=== PATIENT | male | born 1945 | race Caucasian/White ===

== ENCOUNTER 2018-09-13 14:27 | Inpatient (IN) | payer MEDICARE, OTHER ==
[~2018-09-13] VITALS: Ht 193 cm; Wt 109.1 kg
[2018-09-13 15:08] LABS: BASO # 0.1 x10^3/uL (0.0-0.2); BASO % 1 % (0-3); EOS # 0.2 x10^3/uL (0.0-0.7); EOS % 2 % (0-3); HEMATOCRIT 38.7 % (39.0-53.0); HEMOGLOBIN 12.3 g/dL (13.0-17.5); LYMPH # 3.4 x10^3/uL (1.0-4.8); LYMPH % 27 % (24-48); MEAN CORPUSCULAR HEMOGLOBIN 25 pg (25-35); MEAN CORPUSCULAR HGB CONC 32 g/dL (31-37); MEAN CORPUSCULAR VOLUME 78 fL (79-100); MONO # 0.9 x10^3/uL (0.0-1.1); MONO % 8 % (0-9); NEUT % 63 % (31-73); PLATELET COUNT 323 x10^3/uL (140-400); RED BLOOD COUNT 4.95 x10^6/uL (4.30-5.70); RED CELL DISTRIBUTION WIDTH 17.2 % (11.5-14.5); WHITE BLOOD COUNT 12.7 x10^3/uL (4.0-11.0)
[2018-09-13 15:24] LABS: % BANDS 6 % (0-9); % BASOS 2 % (0-3); % EOS 5 % (0-5); % LYMPHS 20 % (24-48); % MONOS 4 % (0-10); % SEGS 63 % (35-66)
[2018-09-13 15:27] LABS: HYPOCHROMIA SLIGHT; PLT ESTIMATE ADEQUATE (ADEQUATE)
[2018-09-13 15:33] LABS: ALBUMIN 2.9 g/dL (3.4-5.0); ALBUMIN/GLOBULIN RATIO 0.6 (1.0-1.7); CALCIUM 9.4 mg/dL (8.5-10.1); CREATININE 1.2 mg/dL (0.7-1.3); GFR 59.3; MAGNESIUM 1.7 mg/dL (1.8-2.4); POTASSIUM 4.4 mmol/L (3.5-5.1); TOTAL BILIRUBIN 0.1 mg/dL (0.2-1.0); TOTAL PROTEIN 7.5 g/dL (6.4-8.2)
[2018-09-13 16:21] LABS: BILIRUBIN,URINE NEG (NEG); CLARITY,URINE HAZY; COLOR,URINE YELLOW; GLUCOSE,URINE NEG (NEG); NITRITE,URINE NEG (NEG); UROBILINOGEN,URINE 0.2 mg/dL (0.2 mg/dL)
[2018-09-13 16:22] LABS: BACTERIA,URINE FEW /HPF (0-FEW); RBC,URINE 0 /HPF (0-2); SQUAMOUS EPITHELIAL CELL,UR FEW /LPF; WBC,URINE OCC /HPF (0-4)
--- NOTE | 2018-09-13 16:41 | EKG ---
[address] [address] Test Date: 2018-09-13 Test Time: 14:45:22 Pat Name: ZEENAT SOSA Department: Room: Gender: M Stock Speculator: JANET : 1945 Requested By: DYLAN MILTON Order Number: [id number] Reading MD: Sonido Sanabria MD Measurements Intervals [place] Rate: 84 P: 42 DC: 170 QRS: 11 QRSD: 94 T: 12 QT: 358 QTc: 426 Interpretive Statements SINUS RHYTHM CONSIDER INFERIOR INFARCT Electronically Signed On 09-17-2018 14:53:26 CDT by Sonido Sanabria MD
--- NOTE | 2018-09-13 16:50 | PHYS DOC ---
Past History Past Medical History: Anxiety, COPD, Dementia, Depression, Diabetes, GERD, High Cholesterol, Hypertension, Hypothyroid, Pneumonia, Other Past Surgical History: Other Alcohol Use: None Drug Use: None Adult General Chief Complaint Chief Complaint: PSYCH EVALUATION HPI HPI 73-year-old male presents from care facility for medical clearance for psychiatric admission. Patient was reported to have bilateral behaviors and yelling at other people. The patient denies any medical complaints to me. He does not have any pain. He has had several times a day doesn't think he needs to be here. He has occasionally gotten angry and yelled out in general. Review of Systems Review of Systems Constitutional: Denies fever or chills [] Eyes: Denies change in visual acuity, redness, or eye pain [] HENT: Denies nasal congestion or sore throat [] Respiratory: Denies cough or shortness of breath [] Cardiovascular: No additional information not addressed in HPI [] GI: Denies abdominal pain, nausea, vomiting, bloody stools or diarrhea [] : Denies dysuria or hematuria [] Musculoskeletal: Denies back pain or joint pain [] Integument: Denies rash or skin lesions [] Neurologic: Denies headache, focal weakness or sensory changes [] Endocrine: Denies polyuria or polydipsia [] All other systems were reviewed and found to be within normal limits, except as documented in this note. Allergies Allergies Allergies Coded Allergies Type Severity Reaction Last Updated Verified tomato Allergy Unknown 09/13/18 Yes Physical Exam Physical Exam Constitutional: Well developed, well nourished, no acute distress, non-toxic appearance. [] HENT: Normocephalic, atraumatic, bilateral external ears normal, oropharynx moist, no oral exudates, nose normal. [] Eyes: PERRLA, EOMI, conjunctiva normal, no discharge. [] Neck: Normal range of motion, no tenderness, supple, no stridor. [] Cardiovascular:Heart rate regular rhythm, no murmur [] Lungs & Thorax: Bilateral breath sounds clear to auscultation [] Abdomen: Bowel sounds normal, soft, no tenderness, no masses, no pulsatile masses. [] Skin: Warm, dry, no erythema, no rash. [] Back: No tenderness, no CVA tenderness. [] Extremities: No tenderness, no cyanosis, no clubbing, ROM intact, no edema. [] Neurologic: Alert and oriented X 3, normal motor function, normal sensory function, no focal deficits noted. [] Psychologic: Affect normal, judgement impaired, mood normal. [] Current Patient Data Vital Signs Vital Signs Date Time Temp Pulse Resp B/P (MAP) Pulse Ox O2 Delivery O2 Flow Rate FiO2 09/13/18 14:40 98.1 89 20 96 Room Air Lab Results Laboratory Tests Test 09/13/18 14:55 09/13/18 15:40 White Blood Count 12.7 x10^3/uL (4.0-11.0) H Red Blood Count 4.95 x10^6/uL (4.30-5.70) Hemoglobin 12.3 g/dL (13.0-17.5) L Hematocrit 38.7 % (39.0-53.0) L Mean Corpuscular Volume 78 fL (79-100) L Mean Corpuscular Hemoglobin 25 pg (25-35) Mean Corpuscular Hemoglobin Concent 32 g/dL (31-37) Red Cell Distribution Width 17.2 % (11.5-14.5) H Platelet Count 323 x10^3/uL (140-400) Neutrophils (%) (Auto) 63 % (31-73) Lymphocytes (%) (Auto) 27 % (24-48) Monocytes (%) (Auto) 8 % (0-9) Eosinophils (%) (Auto) 2 % (0-3) Basophils (%) (Auto) 1 % (0-3) Neutrophils # (Auto) 8.0 x10^3uL (1.8-7.7) H Lymphocytes # (Auto) 3.4 x10^3/uL (1.0-4.8) Monocytes # (Auto) 0.9 x10^3/uL (0.0-1.1) Eosinophils # (Auto) 0.2 x10^3/uL (0.0-0.7) Basophils # (Auto) 0.1 x10^3/uL (0.0-0.2) Segmented Neutrophils % 63 % (35-66) Band Neutrophils % 6 % (0-9) Lymphocytes % 20 % (24-48) L Monocytes % 4 % (0-10) Eosinophils % 5 % (0-5) Basophils % 2 % (0-3) Platelet Estimate Adequate (ADEQUATE) Hypochromasia Slight Sodium Level 138 mmol/L (136-145) Potassium Level 4.4 mmol/L (3.5-5.1) Chloride Level 102 mmol/L (98-107) Carbon Dioxide Level 29 mmol/L (21-32) Anion Gap 7 (6-14) Blood Urea Nitrogen 24 mg/dL (8-26) Creatinine 1.2 mg/dL (0.7-1.3) Estimated GFR (Cockcroft-Gault) 59.3 BUN/Creatinine Ratio 20 (6-20) Glucose Level 105 mg/dL (70-99) H Calcium Level 9.4 mg/dL (8.5-10.1) Magnesium Level 1.7 mg/dL (1.8-2.4) L Total Bilirubin 0.1 mg/dL (0.2-1.0) L Aspartate Amino Transferase (AST) 13 U/L (15-37) L Alanine Aminotransferase (ALT) 14 U/L (16-63) L Alkaline Phosphatase 84 U/L (46-116) Total Protein 7.5 g/dL (6.4-8.2) Albumin 2.9 g/dL (3.4-5.0) L Albumin/Globulin Ratio 0.6 (1.0-1.7) L Urine Collection Type Unknown Urine Color Yellow Urine Clarity Hazy Urine pH 7.0 Urine Specific [place] 1.020 Urine Protein Neg (NEG-TRACE) Urine Glucose (UA) Neg mg/dL (NEG) Urine Ketones (Stick) Neg mg/dL (NEG) Urine Blood Neg (NEG) Urine Nitrite Neg (NEG) Urine Bilirubin Neg (NEG) Urine Urobilinogen Dipstick 0.2 mg/dL (0.2 mg/dL) Urine Leukocyte Esterase Neg (NEG) Urine RBC 0 /HPF (0-2) Urine WBC Occ /HPF (0-4) Urine Squamous Epithelial Cells Few /LPF Urine Bacteria Few /HPF (0-FEW) EKG EKG [] Radiology/Procedures Radiology/Procedures [] Course & Med Decision Making Course & Med Decision Making Pertinent Labs and Imaging studies reviewed. (See chart for details) The patient's labs are significant for a slightly elevated white count. I do not see signs of infection. Patient's urinalysis is unremarkable. He is medically stable for psychiatric admission. [] Dragon Disclaimer Dragon Disclaimer This electronic medical record was generated, in whole or in part, using a voice recognition dictation system. Departure Departure: Impression: Primary Impression: Medical clearance for psychiatric admission Disposition: ADMITTED INPATIENT Condition: STABLE Referrals: MARCIA BARTLETT (PCP) DYLAN MILTON DO Sep 13, 2018 16:50
[2018-09-13] MEDS ORDERED: METHYL SALICYLATE/MENTHOL TOPICAL OINTMENT 29GM TUBE. TP PRN (18:45)
[2018-09-13] MEDS ORDERED: ACETAMINOPHEN 325 MG TABLET PO PRN (18:45)
[2018-09-13] MEDS ORDERED: MAGNESIUM HYDROXIDE 2,400 MG/30 ML ORAL.SUSP. PO PRN (18:45)
[2018-09-13 19:08] LABS: VAL ACID 51 mcg/mL (50-100)
[2018-09-13] MEDS ORDERED: METF500T16 PO (21:05)
[2018-09-13] MEDS ORDERED: IPRA3AMP29 NEB (21:05)
[2018-09-13] MEDS ORDERED: LEVO50TA5 PO (21:05)
[2018-09-13] MEDS ORDERED: DIVA125C2 PO ×2 (21:05)
[2018-09-13] MEDS ORDERED: ASPI-630 PO (21:05)
[2018-09-13] MEDS ORDERED: DONE10TA7 PO (21:05)
[2018-09-13] MEDS ORDERED: METO-239 PO (21:05)
[2018-09-13] MEDS ORDERED: DEXT1CAP PO (21:05)
[2018-09-13] MEDS ORDERED: DOCU100C28 PO (21:05)
[2018-09-13] MEDS ORDERED: ACET325T9 PO (21:05)
[2018-09-13] MEDS ORDERED: OLAN20TA7 PO (21:05)
[2018-09-13] MEDS ORDERED: CHOL10003 PO (21:05)
[2018-09-13] MEDS ORDERED: LORA0.5T PO (21:05)
[2018-09-13] MEDS ORDERED: FAMO20TA5 PO (21:05)
[2018-09-13] MEDS ORDERED: SIMV10TA3 PO (21:05)
[2018-09-13] MEDS ORDERED: MENT118G TP (21:05)
[2018-09-13] MEDS ORDERED: IPRATRPIUM/ALBUTEROL 0.5/2.5MG 3 ML NEBU. NEB PRN (21:15)
[2018-09-13] MEDS ORDERED: NON FORMULARY ITEM (Menthol (Biofreeze) 118 ML) TP PRN (21:15)
[2018-09-13] MEDS ORDERED: QUET200T4 PO (21:39)
[2018-09-13] MEDS ORDERED: QUET300T5 PO ×2 (21:39)
[2018-09-13] MEDS: SIMVASTATIN 10 MG TABLET PO SCH (21:59)
[2018-09-13] MEDS: FAMOTIDINE 20 MG TABLET PO SCH (21:59)
[2018-09-13] MEDS: DONEPEZIL HCL 10 MG TABLET PO SCH (21:59)
[2018-09-13] MEDS: DIVALPROEX 125 MG CAP.SPRINK PO SCH (21:59)
[2018-09-13] MEDS: DEXTROMETHORPHAN/QUINIDINE 20/10MG CAPSULE. PO SCH ×2 (22:00→23:09)
[2018-09-13] MEDS: DOCUSATE SODIUM 100 MG CAPSULE PO SCH (22:00)
--- NOTE | 2018-09-13 22:52 | PDOC ---
Exam Note: Og Note: Please also refer to the separate dictated note~for this date of service dictated separately.~Patient seen individually. Discussed the patient with Nursing staff reviewed the chart.~Reviewed interim history and current functioning. Reviewed vital signs,~Labs/ Radiology~and current medications noted below. Continue current treatment with the changes noted in the dictated addendum note Assessment: Vital Signs: Vital Signs Date Time Temp Pulse Resp B/P (MAP) Pulse Ox O2 Delivery O2 Flow Rate FiO2 09/13/18 14:40 98.1 89 20 96 Room Air Labs: Laboratory Tests Test 09/13/18 14:55 09/13/18 15:40 White Blood Count 12.7 x10^3/uL (4.0-11.0) H Red Blood Count 4.95 x10^6/uL (4.30-5.70) Hemoglobin 12.3 g/dL (13.0-17.5) L Hematocrit 38.7 % (39.0-53.0) L Mean Corpuscular Volume 78 fL (79-100) L Mean Corpuscular Hemoglobin 25 pg (25-35) Mean Corpuscular Hemoglobin Concent 32 g/dL (31-37) Red Cell Distribution Width 17.2 % (11.5-14.5) H Platelet Count 323 x10^3/uL (140-400) Neutrophils (%) (Auto) 63 % (31-73) Lymphocytes (%) (Auto) 27 % (24-48) Monocytes (%) (Auto) 8 % (0-9) Eosinophils (%) (Auto) 2 % (0-3) Basophils (%) (Auto) 1 % (0-3) Neutrophils # (Auto) 8.0 x10^3uL (1.8-7.7) H Lymphocytes # (Auto) 3.4 x10^3/uL (1.0-4.8) Monocytes # (Auto) 0.9 x10^3/uL (0.0-1.1) Eosinophils # (Auto) 0.2 x10^3/uL (0.0-0.7) Basophils # (Auto) 0.1 x10^3/uL (0.0-0.2) Segmented Neutrophils % 63 % (35-66) Band Neutrophils % 6 % (0-9) Lymphocytes % 20 % (24-48) L Monocytes % 4 % (0-10) Eosinophils % 5 % (0-5) Basophils % 2 % (0-3) Platelet Estimate Adequate (ADEQUATE) Hypochromasia Slight Sodium Level 138 mmol/L (136-145) Potassium Level 4.4 mmol/L (3.5-5.1) Chloride Level 102 mmol/L (98-107) Carbon Dioxide Level 29 mmol/L (21-32) Anion Gap 7 (6-14) Blood Urea Nitrogen 24 mg/dL (8-26) Creatinine 1.2 mg/dL (0.7-1.3) Estimated GFR (Cockcroft-Gault) 59.3 BUN/Creatinine Ratio 20 (6-20) Glucose Level 105 mg/dL (70-99) H Calcium Level 9.4 mg/dL (8.5-10.1) Magnesium Level 1.7 mg/dL (1.8-2.4) L Total Bilirubin 0.1 mg/dL (0.2-1.0) L Aspartate Amino Transferase (AST) 13 U/L (15-37) L Alanine Aminotransferase (ALT) 14 U/L (16-63) L Alkaline Phosphatase 84 U/L (46-116) Total Protein 7.5 g/dL (6.4-8.2) Albumin 2.9 g/dL (3.4-5.0) L Albumin/Globulin Ratio 0.6 (1.0-1.7) L Valproic Acid Level 51 mcg/mL (50-100) Valproic Acid Last Dose Date 09-12-18 Valproic Acid Last Dose Time 2100 Urine Collection Type Unknown Urine Color Yellow Urine Clarity Hazy Urine pH 7.0 Urine Specific [place] 1.020 Urine Protein Neg (NEG-TRACE) Urine Glucose (UA) Neg mg/dL (NEG) Urine Ketones (Stick) Neg mg/dL (NEG) Urine Blood Neg (NEG) Urine Nitrite Neg (NEG) Urine Bilirubin Neg (NEG) Urine Urobilinogen Dipstick 0.2 mg/dL (0.2 mg/dL) Urine Leukocyte Esterase Neg (NEG) Urine RBC 0 /HPF (0-2) Urine WBC Occ /HPF (0-4) Urine Squamous Epithelial Cells Few /LPF Urine Bacteria Few /HPF (0-FEW) Current Medications: Meds: Current Medications Acetaminophen (Tylenol) 650 mg PRN Q6HRS PRN PO PAIN / TEMP; Start 09/13/18 at 18:45 Multi-Ingredient Ointment (Analgesic [place]) 1 johnny PRN QID PRN TP MUSCLE PAIN; Start 09/13/18 at 18:45 Al Hydroxide/Mg Hydroxide (Mylanta Plus Xs) 15 ml PRN AFTMEALHC PRN PO DYSPEPS IA; Start 09/13/18 at 18:45 Magnesium Hydroxide (Milk Of Magnesia) 2,400 mg PRN QHS PRN PO CONSTIPATION; Start 09/13/18 at 18:45 Acetaminophen (Tylenol) 325 mg TID PO ; Start 09/14/18 at 09:00 Vitamin D (Vitamin D3) 4,000 unit DAILY PO ; Start 09/14/18 at 09:00 Dextromethorphan/ Quinidine (Nuedexta 20-10 Mg Capsule) 1 cap BID PO ; Start 09/13/18 at 22:00 Albuterol/ Ipratropium (Duoneb) 3 ml PRN Q6HRS PRN NEB COUGH; Start 09/13/18 at 21:15 Metoprolol Succinate (Toprol Xl) 25 mg DAILY PO ; Start 09/14/18 at 09:00 Simvastatin (Zocor) 10 mg HS PO Last administered on 09/13/18at 21:59; Start 09/13/18 at 22:00 Aspirin (Children'S Aspirin) 81 mg DAILY PO ; Start 09/14/18 at 08:00 Divalproex Sodium (Depakote Sprinkles) 1,000 mg HS PO Last administered on 09/13/18at 21:59; Start 09/13/18 at 22:00 Divalproex Sodium (Depakote Sprinkles) 750 mg DAILY PO ; Start 09/14/18 at 09:00 Docusate Sodium (Colace) 100 mg BID PO Last administered on 09/13/18at 22:00; Start 09/13/18 at 22:00 Donepezil HCl (Aricept) 10 mg HS PO Last administered on 09/13/18at 21:59; Start 09/13/18 at 22:00 Famotidine (Pepcid) 20 mg HS PO Last administered on 09/13/18at 21:59; Start 09/13/18 at 22:00 Levothyroxine Sodium (Synthroid) 50 mcg DAILY06 PO ; Start 09/14/18 at 06:00 Lorazepam (Ativan) 0.5 mg PRN TID PRN PO ANXIETY / AGITATION; Start 09/13/18 at 21:30 Non-Formulary Medication (Menthol (Biofreeze)) 118 ml PRN Q24HRS PRN TP PAIN; Start 09/13/18 at 21:15; Status UNV Metformin HCl (Glucophage) 500 mg BIDWMEALS PO ; Start 09/14/18 at 08:00 Olanzapine (ZyPREXA) 20 mg DAILY PO ; Start 09/14/18 at 09:00 Quetiapine Fumarate (SEROquel) 200 mg DAILY PO ; Start 09/14/18 at 09:00 Quetiapine Fumarate (SEROquel) 300 mg DAILY@1500 PO ; Start 09/14/18 at 15:00 Quetiapine Fumarate (SEROquel) 300 mg HS PO ; Start 09/13/18 at 22:30 Active Scripts Active Reported Seroquel (Quetiapine Fumarate) 300 Mg Tablet 300 Mg PO HS Seroquel (Quetiapine Fumarate) 300 Mg Tablet 300 Mg PO DAILY@1500 Seroquel (Quetiapine Fumarate) 200 Mg Tablet 200 Mg PO DAILY Vitamin D3 (Cholecalciferol (Vitamin D3)) 1,000 Unit Tablet 4,000 Unit PO DAILY Simvastatin 10 Mg Tablet 10 Mg PO HS Olanzapine 20 Mg Tablet 20 Mg PO DAILY Nuedexta 20-10 Mg Capsule (Dextromethorphan Hbr/Quinidine) 1 Each Capsule 1 Each PO BID Tylenol (Acetaminophen) 325 Mg Tablet 325 Mg PO TID Metoprolol Succinate ( Xl ) (Metoprolol Succinate) 25 Mg Tab.er.24h 25 Mg PO DAILY Metformin Hcl 500 Mg Tablet 500 Mg PO BIDWMEALS Lorazepam 0.5 Mg Tablet 0.5 Mg PO PRN TID PRN Levothyroxine Sodium 50 Mcg Tablet 50 Mcg PO DAILYAC Duoneb 0.5-3(2.5) Mg/3 Ml (Albuterol/Ipratropium) 3 Ml Ampul.neb 3 Ml NEB PRN Q6HRS PRN Famotidine 20 Mg Tablet 20 Mg PO HS Donepezil Hcl 10 Mg Tablet 10 Mg PO HS Docusate Sodium 100 Mg Capsule 100 Mg PO BID Depakote Sprinkle (Divalproex Sodium) 125 Mg Cap.sprink 750 Mg PO DAILY Depakote Sprinkle (Divalproex Sodium) 125 Mg Cap.sprink 1,000 Mg PO HS Biofreeze (Menthol) 118 Ml Gel..ml. 118 Ml TP PRN Q24HRS PRN Aspirin 81 Mg Tab.chew 81 Mg PO DAILY I have reviewed the current psychotropics carefully including drug interactions. Risk benefit ratio favors no change other than as noted in my dictated progress note. Diagnosis: Problems: (1) Anxiety disorder (2) Dementia in Alzheimer's disease with delusions (3) Dementia in Alzheimer's disease with depression (4) Dementia, vascular, with delusions (5) Dementia, vascular, with depression (6) Impulse control disorder KAMILA GOMEZ MD Sep 13, 2018 22:52
[2018-09-13] MEDS: QUEtiapine 100 MG TABLET. PO SCH (23:08)
[2018-09-14 05:22] VITALS: BP 113/72
[2018-09-14] MEDS: LEVOTHYROXINE 50 MCG TABLET PO SCH (05:39)
[2018-09-14] MEDS: ACETAMINOPHEN 325 MG TABLET PO SCH ×3 (08:35→19:17)
[2018-09-14] MEDS: METOPROLOL SUCC 24HR ER 25 MG TAB.ER.24H. PO SCH (08:35)
[2018-09-14] MEDS: CHOLECALCIFEROL (VITAMIN D3) 1,000 UNIT TABLET PO SCH (08:35)
[2018-09-14] MEDS: OLANZapine 10 MG TABLET PO SCH (08:35)
[2018-09-14] MEDS: DOCUSATE SODIUM 100 MG CAPSULE PO SCH ×2 (08:35→19:17)
[2018-09-14] MEDS: metFORMIN 500 MG TABLET PO SCH ×2 (08:36→17:11)
[2018-09-14] MEDS: DIVALPROEX 125 MG CAP.SPRINK PO SCH ×2 (08:36→19:17)
[2018-09-14] MEDS: ASPIRIN 81 MG TAB.CHEW PO SCH ×2 (08:36→08:37)
[2018-09-14] MEDS: QUEtiapine 100 MG TABLET. PO SCH ×3 (08:36→19:18)
[2018-09-14] MEDS: DEXTROMETHORPHAN/QUINIDINE 20/10MG CAPSULE. PO SCH ×2 (08:36→19:18)
--- NOTE | 2018-09-14 09:59 | RAD ---
PQRS Compliance Statement: One or more of the following individualized dose reduction techniques were utilized for this examination: 1. Automated exposure control 2. Adjustment of the mA and/or kV according to patient size 3. Use of iterative reconstruction technique CT HEAD WITHOUT CONTRAST History: Change in mental status. Patient noncompliant Comparison: None. Technique: Axial images are obtained of the head from the skull base through the vertex without IV contrast. Findings: Exam is moderately limited due to motion artifact. Subtle finding could be obscured. No mass-effect, midline shift, extra-axial fluid collection, hemorrhage, or obvious acute infarction is identified. Basilar cisterns are patent. The ventricles and sulci are prominent, consistent with age-related cerebral atrophy. There is supratentorial white matter hypoattenuation. This is a nonspecific finding but is commonly due to chronic small vessel ischemic disease. Bone windows demonstrate no acute calvarial abnormality. The visualized paranasal sinuses are clear. Mastoid air cells are well aerated. IMPRESSION: 1. Study is marginally diagnostic due to motion artifact. 2. No obvious acute intracranial abnormality. 3. Age-related cerebral atrophy and supratentorial white matter changes probably due to chronic small vessel ischemic disease. Electronically signed by: Waylon Flanagan MD (09/14/2018 9:56 AM) [id number]
--- NOTE | 2018-09-14 13:04 | HP ---
ADMIT DATE: 09/13/2018 PSYCHIATRIC ADMISSION HISTORY/EVALUATION This late entry, date of service 09/13/2018, covers elements not covered in my initial note. I met with the patient in the evening of 09/13/2018. Discussed with nursing staff, reviewed the chart, previously discussed with Beth Braden, talent development coordinator after we received a referral from [facility] by his primary care physician, Dr. Polanco. On account of worsening intermittent explosive behaviors, yelling, being disruptive at the facility, belligerent, name calling, verbally abusive, agitated, throwing pillows at others and having failed outpatient psychiatric interventions. He is being admitted by Aaron Cantor, public practice administrator, who is his guardian. CHIEF COMPLAINT: "I came here today. I don't do those things." HISTORY OF PRESENT ILLNESS: The patient has prior diagnosis of schizoaffective disorder, bipolar type with worsening cognition and major neurocognitive disorder. Over the past few weeks the patient has been increasingly agitated as noted above, disruptive, unmanageable at the facility. He has failed a prior inpatient psychiatric hospitalization at [facility] in [facility] from 07/09/2018-07/21/2018. We will request those records as well. He has had sleep and appetite changes and worsening mood swings. Adjustments in his Depakote, lorazepam, Nuedexta, olanzapine, Seroquel and behavioral interventions with redirection have all failed resulting in this referral. PAST PSYCHIATRIC HISTORY: Positive for mood swings and progressive memory deficits. PAST MEDICAL HISTORY: Positive for status post pneumonia, chronic constipation, traumatic subdural hemorrhage, pruritus, tachycardia, type 2 diabetes mellitus, hypothyroidism, vitamin D deficiency, hyperlipidemia, history of autistic spectrum disorder, hypertension, COPD, GERD, peptic ulcer disease. Ambulates with a [place] with 2-person assist. He also uses the wheelchair shoe on one foot, nonskid sock on the other. DIET: Regular. MEDICATIONS: Takes meds crushed. ALLERGIES: TOMATOES. CODE STATUS: Full code. FAMILY HISTORY: Noncontributory. SOCIAL HISTORY: No history of alcohol, drug abuse, physical, sexual or elder abuse. He is not known to be a perpetrator. CURRENT PSYCHOTROPICS: Depakote Sprinkles 750 mg a.m. and 1000 mg at bedtime, Aricept 10 mg at bedtime, Ativan 0.5 mg at bedtime and 0.5 mg at 1700 plus 0.5 mg daily, Nuedexta 20/10 mg b.i.d., Zyprexa 20 mg daily, Seroquel 200 mg daily, 300 mg at bedtime and 100 mg at 1700. REACTION TO HOSPITALIZATION: The patient accepting of it. REVIEW OF SYSTEMS: Ambulation impaired, in wheelchair. No CV, , pulmonary, eye, ENT system symptoms on review. MENTAL STATUS EXAM: The patient was seen individually evening of 09/13/2018. He was just finishing his supper and I met with him at some length. He is oriented to himself and did know he was admitted on 09/13/2018, was unsure where he came from. [place] the year was 2016, unable to tell me who the President is. Speech has some latency, coherent. Abstraction fair, computation impaired, language function intact, attention span short. Mood and affect remain somewhat anxious, labile, remains somewhat paranoid. LABORATORY DATA: Reviewed. IMPRESSION: Schizoaffective disorder, bipolar type, mixed with psychotic features; major neurocognitive disorder, possibly Alzheimer, vascular with delusion, depression, behavioral disturbance; anxiety disorder, unspecified; impulse control disorder, unspecified. Rest as above. PLAN: Admit to Geropsychiatry Unit at [facility]. I will see the patient daily individually from a psychiatric standpoint, medical followup with Dr. Brock. We will continue his current psychotropics. Check a valproic acid level then adjust to reach therapeutic level. We will try and simplify his antipsychotics since he is on a combination of two atypical antipsychotics, Zyprexa and Seroquel. We will make further decisions post baseline assessment. MAN Samina GOMEZ MD DR: KSENIA/rocky JOB#: [id number] / [id number]
[2018-09-14 13:31] LABS: THYROID STIM HORMONE (TSH) 5.033 uIU/mL (0.358-3.740)
[2018-09-14 16:30] VITALS: BP 170/68
[2018-09-14] MEDS: SIMVASTATIN 10 MG TABLET PO SCH (19:17)
[2018-09-14] MEDS: FAMOTIDINE 20 MG TABLET PO SCH (19:17)
[2018-09-14] MEDS: DONEPEZIL HCL 10 MG TABLET PO SCH (19:17)
--- NOTE | 2018-09-14 22:50 | PDOC ---
Exam Note: Og Note: Please also refer to the separate dictated note~for this date of service dictated separately.~Patient seen individually. Discussed the patient with Nursing staff reviewed the chart.~Reviewed interim history and current functioning. Reviewed vital signs,~Labs/ Radiology~and current medications noted below. Continue current treatment with the changes noted in the dictated addendum note Assessment: Vital Signs: Vital Signs Date Time Temp Pulse Resp B/P (MAP) Pulse Ox O2 Delivery O2 Flow Rate FiO2 09/14/18 16:30 97.0 78 16 170/68 (102) 97 09/13/18 14:40 Room Air I&O Intake and Output 09/14/18 07:00 Intake Total 120 ml Balance 120 ml Intake Oral 120 ml Labs: Laboratory Tests Test 09/14/18 07:24 09/14/18 07:36 09/14/18 11:44 09/14/18 16:36 Magnesium Level 1.8 mg/dL (1.8-2.4) Iron Level 56 ug/dL (65-175) L Total Iron Binding Capacity 368 ug/dL (250-450) Iron Saturation 15 % (15-34) Triglycerides Level 248 mg/dL (0-150) H Cholesterol Level 150 mg/dL (0-200) LDL Cholesterol, Calculated 59 mg/dL (0-100) VLDL Cholesterol, Calculated 49 mg/dL (0-40) H Non-HDL Cholesterol Calculated 108 mg/dL (0-129) HDL Cholesterol 42 mg/dL (40-60) Cholesterol/HDL Ratio 3.0 25-Hydroxy Vitamin D Total 41.5 ng/mL (30-100) Thyroid Stimulating Hormone (TSH) 5.033 uIU/mL (0.358-3.740) Total Triiodothyronine (TT3) 67 ng/dL (71-180) L Treponema pallidum Antibody Nonreactive (Nonreactive) Glucose (Fingerstick) 96 mg/dL (70-99) 119 mg/dL (70-99) H 111 mg/dL (70-99) H Current Medications: Meds: Current Medications Acetaminophen (Tylenol) 650 mg PRN Q6HRS PRN PO PAIN / TEMP; Start 09/13/18 at 18:45 Multi-Ingredient Ointment (Analgesic [place]) 1 johnny PRN QID PRN TP MUSCLE PAIN; Start 09/13/18 at 18:45 Al Hydroxide/Mg Hydroxide (Mylanta Plus Xs) 15 ml PRN AFTMEALHC PRN PO DYSPE PSIA; Start 09/13/18 at 18:45 Magnesium Hydroxide (Milk Of Magnesia) 2,400 mg PRN QHS PRN PO CONSTIPATION; Start 09/13/18 at 18:45 Acetaminophen (Tylenol) 325 mg TID PO Last administered on 09/14/18 19:17; Start 09/14/18 at 09:00 Vitamin D (Vitamin D3) 4,000 unit DAILY PO Last administered on 09/14/18 08:35; Start 09/14/18 at 09:00 Dextromethorphan/ Quinidine (Nuedexta 20-10 Mg Capsule) 1 cap BID PO Last administered on 09/14/18 19:18; Start 09/13/18 at 22:00 Albuterol/ Ipratropium (Duoneb) 3 ml PRN Q6HRS PRN NEB COUGH; Start 09/13/18 at 21:15 Metoprolol Succinate (Toprol Xl) 25 mg DAILY PO Last administered on 09/14/18 08:35; Start 09/14/18 at 09:00 Simvastatin (Zocor) 10 mg HS PO Last administered on 09/14/18 19:17; Start 09/13/18 at 22:00 Aspirin (Children'S Aspirin) 81 mg DAILY PO Last administered on 09/14/18 08:37; Start 09/14/18 at 08:00 Divalproex Sodium (Depakote Sprinkles) 1,000 mg HS PO Last administered on 09/14/18 19:17; Start 09/13/18 at 22:00 Divalproex Sodium (Depakote Sprinkles) 750 mg DAILY PO Last administered on 09/14/18 08:36; Start 09/14/18 at 09:00 Docusate Sodium (Colace) 100 mg BID PO Last administered on 09/14/18 19:17; Start 09/13/18 at 22:00 Donepezil HCl (Aricept) 10 mg HS PO Last administered on 09/14/18 19:17; Start 09/13/18 at 22:00 Famotidine (Pepcid) 20 mg HS PO Last administered on 09/14/18 19:17; Start 09/13/18 at 22:00 Levothyroxine Sodium (Synthroid) 50 mcg DAILY06 PO Last administered on 09/14/18at 05:39; Start 09/14/18 at 06:00 Lorazepam (Ativan) 0.5 mg PRN TID PRN PO ANXIETY / AGITATION; Start 09/13/18 at 21:30 Non-Formulary Medication (Menthol (Biofreeze)) 118 ml PRN Q24HRS PRN TP PAIN; Start 09/13/18 at 21:15; Status UNV Metformin HCl (Glucophage) 500 mg BIDWMEALS PO Last administered on 09/14/18 17:11; Start 09/14/18 at 08:00 Olanzapine (ZyPREXA) 20 mg DAILY PO Last administered on 09/14/18at 08:35; Start 09/14/18 at 09:00 Quetiapine Fumarate (SEROquel) 200 mg DAILY PO Last administered on 09/14/18at 08:36; Start 09/14/18 at 09:00 Quetiapine Fumarate (SEROquel) 300 mg DAILY@1500 PO Last administered on 09/14/18at 15:00; Start 09/14/18 at 15:00 Quetiapine Fumarate (SEROquel) 300 mg HS PO Last administered on 09/14/18 19:18; Start 09/13/18 at 22:30 Active Scripts Active Reported Seroquel (Quetiapine Fumarate) 300 Mg Tablet 300 Mg PO HS Seroquel (Quetiapine Fumarate) 300 Mg Tablet 300 Mg PO DAILY@1500 Seroquel (Quetiapine Fumarate) 200 Mg Tablet 200 Mg PO DAILY Vitamin D3 (Cholecalciferol (Vitamin D3)) 1,000 Unit Tablet 4,000 Unit PO DAILY Simvastatin 10 Mg Tablet 10 Mg PO HS Olanzapine 20 Mg Tablet 20 Mg PO DAILY Nuedexta 20-10 Mg Capsule (Dextromethorphan Hbr/Quinidine) 1 Each Capsule 1 Each PO BID Tylenol (Acetaminophen) 325 Mg Tablet 325 Mg PO TID Metoprolol Succinate ( Xl ) (Metoprolol Succinate) 25 Mg Tab.er.24h 25 Mg PO DAILY Metformin Hcl 500 Mg Tablet 500 Mg PO BIDWMEALS Lorazepam 0.5 Mg Tablet 0.5 Mg PO PRN TID PRN Levothyroxine Sodium 50 Mcg Tablet 50 Mcg PO DAILYAC Duoneb 0.5-3(2.5) Mg/3 Ml (Albuterol/Ipratropium) 3 Ml Ampul.neb 3 Ml NEB PRN Q6HRS PRN Famotidine 20 Mg Tablet 20 Mg PO HS Donepezil Hcl 10 Mg Tablet 10 Mg PO HS Docusate Sodium 100 Mg Capsule 100 Mg PO BID Depakote Sprinkle (Divalproex Sodium) 125 Mg Cap.sprink 750 Mg PO DAILY Depakote Sprinkle (Divalproex Sodium) 125 Mg Cap.sprink 1,000 Mg PO HS Biofreeze (Menthol) 118 Ml Gel..ml. 118 Ml TP PRN Q24HRS PRN Aspirin 81 Mg Tab.chew 81 Mg PO DAILY I have reviewed the current psychotropics carefully including drug interactions. Risk benefit ratio favors no change other than as noted in my dictated progress note. Diagnosis: Problems: (1) Anxiety disorder (2) Dementia in Alzheimer's disease with delusions (3) Dementia in Alzheimer's disease with depression (4) Dementia, vascular, with delusions (5) Dementia, vascular, with depression (6) Impulse control disorder KAMILA GOMEZ MD Sep 14, 2018 22:50
[2018-09-15 00:08] LABS: HEMOGLOBIN A1C 6.3 % (4.8-5.6)
[2018-09-15] MEDS: LEVOTHYROXINE 50 MCG TABLET PO SCH (05:27)
--- NOTE | 2018-09-15 06:26 | CONS ---
DATE OF CONSULTATION: 09/14/2018 REASON FOR CONSULTATION: Medical management. HISTORY OF PRESENT ILLNESS: The patient is a 73-year-old male patient, a resident at [facility] in [place], [place], who was admitted on account of yelling, disruptive to unit, belligerent, name calling, verbally abusive, agitated, throwing pillows, all this in a background of schizoaffective disorder and major neurocognitive disorder. PAST MEDICAL HISTORY: Significant for pneumonia, traumatic subdural hematoma, type 2 diabetes, hypothyroidism, vitamin D deficiency, hyperlipidemia. He is also known to have hypertension, chronic obstructive pulmonary disease, gastroesophageal reflux disease and peptic ulcer disease. ALLERGIES: HE IS ALLERGIC TO TOMATOES. MEDICATIONS: He is currently on following medications: He is on Aricept 10 mg at bedtime, DuoNeb 3 mL by nebulizer every 6 hours, simvastatin 10 mg at bedtime, metoprolol tartrate 25 mg once a day, aspirin 81 mg once a day, Tylenol 325 mg 3 times a day. He is on Depakote Sprinkles 1000 mg at bedtime and Depakote 750 mg daily, olanzapine 20 mg daily, quetiapine fumarate for Seroquel 200 mg daily. He is on Seroquel 300 mg daily and 300 mg at bedtime. He is on lorazepam 0.5 mg 3 times a day as needed for anxiety and agitation, Nuedexta 20/10 mg twice a day, docusate sodium 100 mg twice a day, famotidine 20 mg at bedtime, metformin 500 mg twice a day and levothyroxine sodium 50 mcg daily. He is on Biofreeze topically daily as needed. He is on cholecalciferol for vitamin D3 4000 international unit p.o. daily. FAMILY HISTORY: Unremarkable. SOCIAL HISTORY: Apparently, a resident at this facility for almost a year according to him. He does not smoke or drink alcohol. PHYSICAL EXAMINATION: GENERAL: On examining him, he looked well and was clearly in no apparent respiratory distress. No pallor, jaundice, cyanosis, lymphadenopathy, or thyromegaly. No jugular venous distension. No lower limb edema. VITAL SIGNS: His heart rate was 78, blood pressure was 170/68, temperature was 97, respiratory rate was 16 and oxygen saturation was 97%. HEAD, EYES, EARS, NOSE AND THROAT: Showed normocephalic, atraumatic. NECK: Supple. HEART: Showed normal first and second heart sounds. No gallop, rub or murmur. CHEST: Clear to auscultation. No crepitation or rhonchi. ABDOMEN: Distended, soft, nontender. No guarding or rigidity. No organomegaly. All hernial orifice intact. Bowel sounds normal. NEUROLOGIC: He is awake, alert, responding at times appropriately. All cranial nerves are intact. He moves extremities without difficulty, although he is mostly wheelchair bound. He apparently has had a history of fall before. He is refusing to walk, though he has been using [place] lift at his facility. LABORATORY DATA: His lab work showed that his white cell count was slightly elevated at 12,700, hemoglobin 12, hematocrit 38, MCV 78 and platelet count 323,000 with normal manual differential. His serum sodium was 138, potassium 4.4, chloride 102, bicarbonate 29, anion gap of 7, BUN 24, creatinine 1.2. Estimated GFR was 59 mL per minute, his glucose 105. His calcium was 9.4, magnesium was 1.7. Serum iron 45, TIBC was 372 and iron saturation was 12. His total bilirubin, AST, ALT, alkaline phosphatase were normal. Total protein was 7.5, albumin was 2.9. Serum triglycerides were 248. Total cholesterol was 150, LDL cholesterol of 59, VLDL was 49 and HDL cholesterol was 42 and ratio was 3. His TSH was slightly elevated at 5.033. Urinalysis was essentially unremarkable. Urine tox screen showed that the valproic acid was 51 mcg/mL, which is well within therapeutic range. His treponema pallidum antibody was nonreactive. He apparently had a CT scan of the head, which basically showed that he has no mass effect or midline shift, extra-axial fluid collection, hemorrhage or obvious acute infarction identified. Basilar cisterns are patent. The ventricles and sulci are prominent consistent with age-related cerebral atrophy. There is supratentorial white matter hypoattenuation. This is a nonspecific finding, but is commonly due to chronic small vessel ischemic changes. The bone windows demonstrate no acute calvarial abnormality. The visualized paranasal sinuses are clear. Mastoid air cells are well-aerated. IMPRESSION: In summary, this is a 73-year-old male patient, who was admitted on account of worsening intermittent explosive behaviors, yelling, being disruptive to the facility, belligerent, name calling, verbally abusive, agitated, and throws pillows at others and having failed outpatient psychiatric intervention. He was admitted by his public accounts administrator, who is his guardian for inpatient psychiatric stabilization. Medically, he has multiple medical problems including hypertension, chronic obstructive pulmonary disease, gastroesophageal reflux disease, type 2 diabetes, vitamin D deficiency, hypothyroidism and hyperlipidemia. So far, all his vital signs and his lab works are all within acceptable range and although he has microcytosis, his hemoglobin and hematocrit are within acceptable range, although his serum iron and TIBC are all consistent with iron deficiency anemia. His TSH was slightly elevated, so I checked his T3, T4, free T4, and if they are low, we might have to increase his Synthroid to 75 mcg. Thank you, Dr. Gonzales for allowing me to participate in the care of this patient. PACO OCHOA MD DR: JEREMI/rocky JOB#: [id number] / [id number]
[2018-09-15 06:29] VITALS: BP 113/67
[2018-09-15] MEDS: DIVALPROEX 125 MG CAP.SPRINK PO SCH ×2 (09:11→19:57)
[2018-09-15] MEDS: metFORMIN 500 MG TABLET PO SCH ×2 (09:13→17:17)
[2018-09-15] MEDS: DOCUSATE SODIUM 100 MG CAPSULE PO SCH ×2 (09:13→19:58)
[2018-09-15] MEDS: ASPIRIN 81 MG TAB.CHEW PO SCH (09:13)
[2018-09-15] MEDS: CHOLECALCIFEROL (VITAMIN D3) 1,000 UNIT TABLET PO SCH (09:13)
[2018-09-15] MEDS: ACETAMINOPHEN 325 MG TABLET PO SCH ×3 (09:14→19:58)
[2018-09-15] MEDS: METOPROLOL SUCC 24HR ER 25 MG TAB.ER.24H. PO SCH (09:14)
[2018-09-15] MEDS: OLANZapine 10 MG TABLET PO SCH (09:15)
[2018-09-15] MEDS: QUEtiapine 100 MG TABLET. PO SCH ×3 (09:15→20:02)
[2018-09-15] MEDS: DEXTROMETHORPHAN/QUINIDINE 20/10MG CAPSULE. PO SCH ×2 (09:19→20:06)
[2018-09-15 16:35] VITALS: BP 105/72
[2018-09-15 18:06] LABS: THYROXINE 4.7 ug/dL (4.5-12.0)
[2018-09-15] MEDS: DONEPEZIL HCL 10 MG TABLET PO SCH (19:57)
[2018-09-15] MEDS: FAMOTIDINE 20 MG TABLET PO SCH (19:58)
[2018-09-15] MEDS: SIMVASTATIN 10 MG TABLET PO SCH (20:03)
--- NOTE | 2018-09-15 22:51 | PDOC ---
Exam Note: Og Note: Please also refer to the separate dictated note~for this date of service dictated separately.~Patient seen individually. Discussed the patient with Nursing staff reviewed the chart.~Reviewed interim history and current functioning. Reviewed vital signs,~Labs/ Radiology~and current medications noted below. Continue current treatment with the changes noted in the dictated addendum note Assessment: Vital Signs: Vital Signs Date Time Temp Pulse Resp B/P (MAP) Pulse Ox O2 Delivery O2 Flow Rate FiO2 09/15/18 16:35 97.7 71 18 105/72 (83) 97 09/13/18 14:40 Room Air I&O Intake and Output 09/15/18 07:00 Intake Total 720 ml Balance 720 ml Intake Oral 720 ml Labs: Laboratory Tests Test 09/15/18 07:26 09/15/18 07:30 09/15/18 11:47 09/15/18 17:04 Glucose (Fingerstick) 95 mg/dL (70-99) 93 mg/dL (70-99) 128 mg/dL (70-99) H Free Thyroxine 0.78 ng/dL (0.76-1.46) Thyroxine (T4) 4.7 ug/dL (4.5-12.0) Total Triiodothyronine (TT3) 69 ng/dL (71-180) L Test 09/15/18 19:14 Glucose (Fingerstick) 121 mg/dL (70-99) H Current Medications: Meds: Current Medications Acetaminophen (Tylenol) 650 mg PRN Q6HRS PRN PO PAIN / TEMP; Start 09/13/18 at 18:45 Multi-Ingredient Ointment (Analgesic [place]) 1 johnny PRN QID PRN TP MUSCLE PAIN; Start 09/13/18 at 18:45 Al Hydroxide/Mg Hydroxide (Mylanta Plus Xs) 15 ml PRN AFTMEALHC PRN PO DYSPEPSIA; Start 09/13/18 at 18:45 Magnesium Hydroxide (Milk Of Magnesia) 2,400 mg PRN QHS PRN PO CONSTIPATION; Start 09/13/18 at 18:45 Acetaminophen (Tylenol) 325 mg TID PO Last administered on 09/15/18at 19:58; Start 09/14/18 at 09:00 Vitamin D (Vitamin D3) 4,000 unit DAILY PO Last administered on 09/15/18at 09:13; Start 09/14/18 at 09:00 Dextromethorphan/ Quinidine (Nuedexta 20-10 Mg Capsule) 1 cap BID PO Last administered on 09/15/18 20:06; Start 09/13/18 at 22:00 Albuterol/ Ipratropium (Duoneb) 3 ml PRN Q6HRS PRN NEB COUGH; Start 09/13/18 at 21:15 Metoprolol Succinate (Toprol Xl) 25 mg DAILY PO Last administered on 09/15/18 09:14; Start 09/14/18 at 09:00 Simvastatin (Zocor) 10 mg HS PO Last administered on 09/15/18 20:03; Start 09/13/18 at 22:00 Aspirin (Children'S Aspirin) 81 mg DAILY PO Last administered on 09/15/18 09:13; Start 09/14/18 at 08:00 Divalproex Sodium (Depakote Sprinkles) 1,000 mg HS PO Last administered on 09/15/18 19:57; Start 09/13/18 at 22:00 Divalproex Sodium (Depakote Sprinkles) 750 mg DAILY PO Last administered on 09/15/18 09:11; Start 09/14/18 at 09:00 Docusate Sodium (Colace) 100 mg BID PO Last administered on 09/15/18 19:58; Start 09/13/18 at 22:00 Donepezil HCl (Aricept) 10 mg HS PO Last administered on 09/15/18 19:57; Start 09/13/18 at 22:00 Famotidine (Pepcid) 20 mg HS PO Last administered on 09/15/18 19:58; Start 09/13/18 at 22:00 Levothyroxine Sodium (Synthroid) 50 mcg DAILY06 PO Last administered on 09/15/18 05:27; Start 09/14/18 at 06:00 Lorazepam (Ativan) 0.5 mg PRN TID PRN PO ANXIETY / AGITATION; Start 09/13/18 at 21:30 Non-Formulary Medication (Menthol (Biofreeze)) 118 ml PRN Q24HRS PRN TP PAIN; Start 09/13/18 at 21:15; Status UNV Metformin HCl (Glucophage) 500 mg BIDWMEALS PO Last administered on 09/15/18 17:17; Start 09/14/18 at 08:00 Olanzapine (ZyPREXA) 20 mg DAILY PO Last administered on 09/15/18 09:15; Start 09/14/18 at 09:00 Quetiapine Fumarate (SEROquel) 200 mg DAILY PO Last administered on 09/15/18 09:15; Start 09/14/18 at 09:00 Quetiapine Fumarate (SEROquel) 300 mg DAILY@1500 PO Last administered on 09/15/18 15:06; Start 09/14/18 at 15:00 Quetiapine Fumarate (SEROquel) 300 mg HS PO Last administered on 09/15/18at 20:02; Start 09/13/18 at 22:30 Active Scripts Active Reported Seroquel (Quetiapine Fumarate) 300 Mg Tablet 300 Mg PO HS Seroquel (Quetiapine Fumarate) 300 Mg Tablet 300 Mg PO DAILY@1500 Seroquel (Quetiapine Fumarate) 200 Mg Tablet 200 Mg PO DAILY Vitamin D3 (Cholecalciferol (Vitamin D3)) 1,000 Unit Tablet 4,000 Unit PO DAILY Simvastatin 10 Mg Tablet 10 Mg PO HS Olanzapine 20 Mg Tablet 20 Mg PO DAILY Nuedexta 20-10 Mg Capsule (Dextromethorphan Hbr/Quinidine) 1 Each Capsule 1 Each PO BID Tylenol (Acetaminophen) 325 Mg Tablet 325 Mg PO TID Metoprolol Succinate ( Xl ) (Metoprolol Succinate) 25 Mg Tab.er.24h 25 Mg PO DAILY Metformin Hcl 500 Mg Tablet 500 Mg PO BIDWMEALS Lorazepam 0.5 Mg Tablet 0.5 Mg PO PRN TID PRN Levothyroxine Sodium 50 Mcg Tablet 50 Mcg PO DAILYAC Duoneb 0.5-3(2.5) Mg/3 Ml (Albuterol/Ipratropium) 3 Ml Ampul.neb 3 Ml NEB PRN Q6HRS PRN Famotidine 20 Mg Tablet 20 Mg PO HS Donepezil Hcl 10 Mg Tablet 10 Mg PO HS Docusate Sodium 100 Mg Capsule 100 Mg PO BID Depakote Sprinkle (Divalproex Sodium) 125 Mg Cap.sprink 750 Mg PO DAILY Depakote Sprinkle (Divalproex Sodium) 125 Mg Cap.sprink 1,000 Mg PO HS Biofreeze (Menthol) 118 Ml Gel..ml. 118 Ml TP PRN Q24HRS PRN Aspirin 81 Mg Tab.chew 81 Mg PO DAILY I have reviewed the current psychotropics carefully including drug interactions. Risk benefit ratio favors no change other than as noted in my dictated progress note. Diagnosis: Problems: (1) Anxiety disorder (2) Dementia in Alzheimer's disease with delusions (3) Dementia in Alzheimer's disease with depression (4) Dementia, vascular, with delusions (5) Dementia, vascular, with depression (6) Impulse control disorder KAMILA GOMEZ MD Sep 15, 2018 22:51
--- NOTE | 2018-09-16 00:09 | PN ---
DATE: 09/14/2018 PSYCHIATRIC PROGRESS NOTE This late entry 09/14/2018, covers elements not covered in my initial note. SUBJECTIVE: I met with the patient in the evening. The patient slept 5 hours previous night. He was agitated in the morning and with the CT head exam. He is compliant with his medications. Valproic acid level is 51. He remains on Seroquel 200 mg at 9:00 a.m. and 300 mg at 3:00 p.m. REVIEW OF SYSTEMS: Ambulation impaired, in wheelchair. No CV, , pulmonary, eye, ENT system symptoms on review. MENTAL STATUS EXAM: Oriented to himself and situation. Speech, low in volume, coherent, abstraction fair, computation impaired, language function intact. Mood and affect remain somewhat anxious, labile. LABORATORY DATA: Reviewed. IMPRESSION: Schizoaffective disorder, bipolar type, mixed major neurocognitive disorder, Alzheimer, vascular with depression, delusion. PLAN: Continue current psychotropics including Depakote, Seroquel, Aricept along with Ativan, Nuedexta, Zyprexa, and start BuSpar 5 mg b.i.d. We will gradually reduce the Seroquel once he is more stable. KAMILA GOMEZ MD DR: KSENIA/rocky JOB#: [id number] / [id number]
[2018-09-16] MEDS: LEVOTHYROXINE 50 MCG TABLET PO SCH (05:46)
[2018-09-16 05:52] VITALS: BP 106/69
[2018-09-16] MEDS: METOPROLOL SUCC 24HR ER 25 MG TAB.ER.24H. PO SCH (09:25)
[2018-09-16] MEDS: CHOLECALCIFEROL (VITAMIN D3) 1,000 UNIT TABLET PO SCH (09:26)
[2018-09-16] MEDS: DOCUSATE SODIUM 100 MG CAPSULE PO SCH ×2 (09:26→20:22)
[2018-09-16] MEDS: ACETAMINOPHEN 325 MG TABLET PO SCH ×3 (09:26→20:21)
[2018-09-16] MEDS: metFORMIN 500 MG TABLET PO SCH ×2 (09:27→17:19)
[2018-09-16] MEDS: OLANZapine 10 MG TABLET PO SCH (09:27)
[2018-09-16] MEDS: ASPIRIN 81 MG TAB.CHEW PO SCH (09:27)
[2018-09-16] MEDS: DIVALPROEX 125 MG CAP.SPRINK PO SCH ×2 (09:27→20:21)
[2018-09-16] MEDS: QUEtiapine 100 MG TABLET. PO SCH ×3 (09:27→20:22)
[2018-09-16] MEDS: DEXTROMETHORPHAN/QUINIDINE 20/10MG CAPSULE. PO SCH ×2 (09:28→20:23)
[2018-09-16 16:19] VITALS: BP 105/72
[2018-09-16] MEDS: DONEPEZIL HCL 10 MG TABLET PO SCH (20:21)
[2018-09-16] MEDS: FAMOTIDINE 20 MG TABLET PO SCH (20:21)
[2018-09-16] MEDS: SIMVASTATIN 10 MG TABLET PO SCH (20:21)
--- NOTE | 2018-09-16 23:01 | PDOC ---
Exam Note: Og Note: Please also refer to the separate dictated note~for this date of service dictated separately.~Patient seen individually. Discussed the patient with Nursing staff reviewed the chart.~Reviewed interim history and current functioning. Reviewed vital signs,~Labs/ Radiology~and current medications noted below. Continue current treatment with the changes noted in the dictated addendum note Assessment: Vital Signs: Vital Signs Date Time Temp Pulse Resp B/P (MAP) Pulse Ox O2 Delivery O2 Flow Rate FiO2 09/16/18 16:19 97.4 80 18 105/72 (83) 94 Room Air I&O Intake and Output 09/16/18 07:00 Intake Total 1080 ml Balance 1080 ml Intake Oral 1080 ml # Voids 1 Labs: Laboratory Tests Test 09/16/18 07:21 09/16/18 11:33 09/16/18 16:52 Glucose (Fingerstick) 89 mg/dL (70-99) 153 mg/dL (70-99) H 120 mg/dL (70-99) H Current Medications: Meds: Current Medications Acetaminophen (Tylenol) 650 mg PRN Q6HRS PRN PO PAIN / TEMP; Start 09/13/18 at 18:45 Multi-Ingredient Ointment (Analgesic [place]) 1 johnny PRN QID PRN TP MUSCLE PAIN; Start 09/13/18 at 18:45 Al Hydroxide/Mg Hydroxide (Mylanta Plus Xs) 15 ml PRN AFTMEALHC PRN PO DYSPEPSIA; Start 09/13/18 at 18:45 Magnesium Hydroxide (Milk Of Magnesia) 2,400 mg PRN QHS PRN PO CONSTIPATION; Start 09/13/18 at 18:45 Acetaminophen (Tylenol) 325 mg TID PO Last administered on 09/16/18at 20:21; Start 09/14/18 at 09:00 Vitamin D (Vitamin D3) 4,000 unit DAILY PO Last administered on 09/16/18at 09:26; Start 09/14/18 at 09:00 Dextromethorphan/ Quinidine (Nuedexta 20-10 Mg Capsule) 1 cap BID PO Last administered on 09/16/18at 20:23; Start 09/13/18 at 22:00 Albuterol/ Ipratropium (Duoneb) 3 ml PRN Q6HRS PRN NEB COUGH; Start 09/13/18 at 21:15 Metoprolol Succinate (Toprol Xl) 25 mg DAILY PO Last administered on 09/16/18 09:25; Start 09/14/18 at 09:00 Simvastatin (Zocor) 10 mg HS PO Last administered on 09/16/18 20:21; Start 09/13/18 at 22:00 Aspirin (Children'S Aspirin) 81 mg DAILY PO Last administered on 09/16/18 09:27; Start 09/14/18 at 08:00 Divalproex Sodium (Depakote Sprinkles) 1,000 mg HS PO Last administered on 09/16/18 20:21; Start 09/13/18 at 22:00 Divalproex Sodium (Depakote Sprinkles) 750 mg DAILY PO Last administered on 09/16/18 09:27; Start 09/14/18 at 09:00 Docusate Sodium (Colace) 100 mg BID PO Last administered on 09/16/18 20:22; Start 09/13/18 at 22:00 Donepezil HCl (Aricept) 10 mg HS PO Last administered on 09/16/18 20:21; Start 09/13/18 at 22:00 Famotidine (Pepcid) 20 mg HS PO Last administered on 09/16/18 20:21; Start 09/13/18 at 22:00 Levothyroxine Sodium (Synthroid) 50 mcg DAILY06 PO Last administered on 09/16/18 05:46; Start 09/14/18 at 06:00 Lorazepam (Ativan) 0.5 mg PRN TID PRN PO ANXIETY / AGITATION; Start 09/13/18 at 21:30 Non-Formulary Medication (Menthol (Biofreeze)) 118 ml PRN Q24HRS PRN TP PAIN; Start 09/13/18 at 21:15; Status UNV Metformin HCl (Glucophage) 500 mg BIDWMEALS PO Last administered on 09/16/18 17:19; Start 09/14/18 at 08:00 Olanzapine (ZyPREXA) 20 mg DAILY PO Last administered on 09/16/18 09:27; Start 09/14/18 at 09:00 Quetiapine Fumarate (SEROquel) 200 mg DAILY PO Last administered on 4/25/19at 09:27; Start 09/14/18 at 09:00; Stop 09/16/18 at 11:17; Status DC Quetiapine Fumarate (SEROquel) 300 mg DAILY@1500 PO Last administered on 09/15/18at 15:06; Start 09/14/18 at 15:00; Stop 09/16/18 at 11:17; Status DC Quetiapine Fumarate (SEROquel) 300 mg HS PO Last administered on 09/16/18at 20:22; Start 09/13/18 at 22:30 Quetiapine Fumarate (SEROquel) 100 mg DAILY PO ; Start 09/17/18 at 09:00 Quetiapine Fumarate (SEROquel) 200 mg DAILY@1500 PO Last administered on 09/16/18at 13:54; Start 09/16/18 at 15:00 Sertraline HCl (Zoloft) 50 mg DAILY PO ; Start 09/17/18 at 09:00 Active Scripts Active Reported Seroquel (Quetiapine Fumarate) 300 Mg Tablet 300 Mg PO HS Seroquel (Quetiapine Fumarate) 300 Mg Tablet 300 Mg PO DAILY@1500 Seroquel (Quetiapine Fumarate) 200 Mg Tablet 200 Mg PO DAILY Vitamin D3 (Cholecalciferol (Vitamin D3)) 1,000 Unit Tablet 4,000 Unit PO DAILY Simvastatin 10 Mg Tablet 10 Mg PO HS Olanzapine 20 Mg Tablet 20 Mg PO DAILY Nuedexta 20-10 Mg Capsule (Dextromethorphan Hbr/Quinidine) 1 Each Capsule 1 Each PO BID Tylenol (Acetaminophen) 325 Mg Tablet 325 Mg PO TID Metoprolol Succinate ( Xl ) (Metoprolol Succinate) 25 Mg Tab.er.24h 25 Mg PO DAILY Metformin Hcl 500 Mg Tablet 500 Mg PO BIDWMEALS Lorazepam 0.5 Mg Tablet 0.5 Mg PO PRN TID PRN Levothyroxine Sodium 50 Mcg Tablet 50 Mcg PO DAILYAC Duoneb 0.5-3(2.5) Mg/3 Ml (Albuterol/Ipratropium) 3 Ml Ampul.neb 3 Ml NEB PRN Q6HRS PRN Famotidine 20 Mg Tablet 20 Mg PO HS Donepezil Hcl 10 Mg Tablet 10 Mg PO HS Docusate Sodium 100 Mg Capsule 100 Mg PO BID Depakote Sprinkle (Divalproex Sodium) 125 Mg Cap.sprink 750 Mg PO DAILY Depakote Sprinkle (Divalproex Sodium) 125 Mg Cap.sprink 1,000 Mg PO HS Biofreeze (Menthol) 118 Ml Gel..ml. 118 Ml TP PRN Q24HRS PRN Aspirin 81 Mg Tab.chew 81 Mg PO DAILY I have reviewed the current psychotropics carefully including drug interactions. Risk benefit ratio favors no change other than as noted in my dictated progress note. Diagnosis: Problems: (1) Anxiety disorder (2) Dementia in Alzheimer's disease with delusions (3) Dementia in Alzheimer's disease with depression (4) Dementia, vascular, with delusions (5) Dementia, vascular, with depression (6) Impulse control disorder KAMILA GOMEZ MD Sep 16, 2018 23:01
[2018-09-17] MEDS: LEVOTHYROXINE 50 MCG TABLET PO SCH (05:26)
[2018-09-17 05:58] VITALS: BP 125/56
[2018-09-17] MEDS: METOPROLOL SUCC 24HR ER 25 MG TAB.ER.24H. PO SCH (08:00)
[2018-09-17] MEDS: metFORMIN 500 MG TABLET PO SCH ×2 (08:00→17:23)
[2018-09-17] MEDS: OLANZapine 10 MG TABLET PO SCH (08:00)
[2018-09-17] MEDS: DOCUSATE SODIUM 100 MG CAPSULE PO SCH ×2 (08:00→19:57)
[2018-09-17] MEDS: DEXTROMETHORPHAN/QUINIDINE 20/10MG CAPSULE. PO SCH ×2 (08:00→19:58)
[2018-09-17] MEDS: DIVALPROEX 125 MG CAP.SPRINK PO SCH ×2 (08:00→19:56)
[2018-09-17] MEDS: ACETAMINOPHEN 325 MG TABLET PO SCH ×3 (08:00→19:56)
[2018-09-17] MEDS: CHOLECALCIFEROL (VITAMIN D3) 1,000 UNIT TABLET PO SCH (08:00)
[2018-09-17] MEDS: ASPIRIN 81 MG TAB.CHEW PO SCH (08:01)
[2018-09-17] MEDS: SERTRALINE 50 MG TABLET. PO SCH (08:03)
[2018-09-17] MEDS: QUEtiapine 100 MG TABLET. PO SCH ×3 (08:03→19:56)
[2018-09-17 16:15] VITALS: BP 111/72
[2018-09-17] MEDS: SIMVASTATIN 10 MG TABLET PO SCH (19:56)
[2018-09-17] MEDS: FAMOTIDINE 20 MG TABLET PO SCH (19:56)
[2018-09-17] MEDS: DONEPEZIL HCL 10 MG TABLET PO SCH (19:57)
--- NOTE | 2018-09-17 22:04 | PN ---
DATE: 09/15/2018 PSYCHIATRIC PROGRESS NOTE This late entry 09/15/2018 covers elements not covered in my initial note. SUBJECTIVE: I met with the patient in the evening. The patient slept 6-1/2 hours previous night. He remains in his wheelchair, somewhat guarded, had a shower during the day, but not agitated. REVIEW OF SYSTEMS: No CV, , pulmonary, eye system symptoms on review. Gait unsteady in wheelchair. MENTAL STATUS EXAM: Oriented to himself. Insight limited, judgment marginal, language function intact. He is aware he is in the hospital and where he was before he came here. No suicidal or homicidal ideation. LABORATORY DATA: Reviewed. IMPRESSION: Unchanged from initial note, schizoaffective disorder, bipolar type, mixed, major neurocognitive disorder, Alzheimer, vascular with depression. Rest unchanged. PLAN: Continue current psychotropics. Adjust gradually as indicated. May need to increase BuSpar for anxiety. MAN Samina GOMEZ MD DR: KSENIA/rocky JOB#: [id number] / [id number]
--- NOTE | 2018-09-17 22:11 | PN ---
DATE: 09/16/2018 PSYCHIATRIC PROGRESS NOTE This late entry 09/16/2018 covers elements not covered in my initial note. SUBJECTIVE: I met with the patient early afternoon, staffed at a treatment team meeting in the morning. The patient continues to be intermittently agitated. The day before he tried to transfer himself to bed, he has had episodes of yelling at times, impatient with questionable symptoms of PTSD. He served several years in [place] per family. REVIEW OF SYSTEMS: Impaired ambulation, in wheelchair. No CV, , pulmonary, eye, ENT system symptoms on review. MENTAL STATUS EXAM: Oriented to himself and situation. Speech is coherent, low in volume. Abstraction fair, computation impaired, language function intact, attention span short. Mood and affect remains anxious, labile. LABORATORY DATA: Reviewed. IMPRESSION: Unchanged from initial note with the additional possible diagnosis of post-traumatic stress disorder. PLAN: We will go ahead and change the Seroquel to 100 mg a.m. and 200 mg at 3 p.m. Maintain 300 mg at bedtime. Continue BuSpar. Start Zoloft 50 mg a day for PTSD symptoms. Consider Prazosin. Rest unchanged. MAN Samina GOMEZ MD DR: KSENIA/rocky JOB#: [id number] / [id number]
--- NOTE | 2018-09-17 22:43 | PDOC ---
Exam Note: Og Note: Please also refer to the separate dictated note~for this date of service dictated separately.~Patient seen individually. Discussed the patient with Nursing staff reviewed the chart.~Reviewed interim history and current functioning. Reviewed vital signs,~Labs/ Radiology~and current medications noted below. Continue current treatment with the changes noted in the dictated addendum note Assessment: Vital Signs: Vital Signs Date Time Temp Pulse Resp B/P (MAP) Pulse Ox O2 Delivery O2 Flow Rate FiO2 09/17/18 16:15 97.2 98 20 111/72 (85) 97 Room Air I&O Intake and Output 09/17/18 06:59 Intake Total 1320 ml Balance 1320 ml Intake Oral 1320 ml # Voids 1 Labs: Laboratory Tests Test 09/17/18 07:10 Glucose (Fingerstick) 88 mg/dL (70-99) Current Medications: Meds: Current Medications Acetaminophen (Tylenol) 650 mg PRN Q6HRS PRN PO PAIN / TEMP; Start 09/13/18 at 18:45 Multi-Ingredient Ointment (Analgesic [place]) 1 johnny PRN QID PRN TP MUSCLE PAIN; Start 09/13/18 at 18:45 Al Hydroxide/Mg Hydroxide (Mylanta Plus Xs) 15 ml PRN AFTMEALHC PRN PO DYSPEPSIA; Start 09/13/18 at 18:45 Magnesium Hydroxide (Milk Of Magnesia) 2,400 mg PRN QHS PRN PO CONSTIPATION; Start 09/13/18 at 18:45 Acetaminophen (Tylenol) 325 mg TID PO Last administered on 09/17/18at 19:56; Start 09/14/18 at 09:00 Vitamin D (Vitamin D3) 4,000 unit DAILY PO Last administered on 09/17/18at 08:00; Start 09/14/18 at 09:00 Dextromethorphan/ Quinidine (Nuedexta 20-10 Mg Capsule) 1 cap BID PO Last administered on 09/17/18at 19:58; Start 09/13/18 at 22:00 Albuterol/ Ipratropium (Duoneb) 3 ml PRN Q6HRS PRN NEB COUGH; Start 09/13/18 at 21:15 Metoprolol Succinate (Toprol Xl) 25 mg DAILY PO Last administered on 09/17/18at 08:00; Start 09/14/18 at 09:00 Simvastatin (Zocor) 10 mg HS PO Last administered on 09/17/18 19:56; Start 09/13/18 at 22:00 Aspirin (Children'S Aspirin) 81 mg DAILY PO Last administered on 09/17/18 08:01; Start 09/14/18 at 08:00 Divalproex Sodium (Depakote Sprinkles) 1,000 mg HS PO Last administered on 09/17/18 19:56; Start 09/13/18 at 22:00 Divalproex Sodium (Depakote Sprinkles) 750 mg DAILY PO Last administered on 09/17/18 08:00; Start 09/14/18 at 09:00 Docusate Sodium (Colace) 100 mg BID PO Last administered on 09/17/18 19:57; Start 09/13/18 at 22:00 Donepezil HCl (Aricept) 10 mg HS PO Last administered on 09/17/18 19:57; Start 09/13/18 at 22:00 Famotidine (Pepcid) 20 mg HS PO Last administered on 09/17/18 19:56; Start 09/13/18 at 22:00 Levothyroxine Sodium (Synthroid) 50 mcg DAILY06 PO Last administered on 09/17/18 05:26; Start 09/14/18 at 06:00 Lorazepam (Ativan) 0.5 mg PRN TID PRN PO ANXIETY / AGITATION; Start 09/13/18 at 21:30 Non-Formulary Medication (Menthol (Biofreeze)) 118 ml PRN Q24HRS PRN TP PAIN; Start 09/13/18 at 21:15; Status UNV Metformin HCl (Glucophage) 500 mg BIDWMEALS PO Last administered on 09/17/18 17:23; Start 09/14/18 at 08:00 Olanzapine (ZyPREXA) 20 mg DAILY PO Last administered on 09/17/18 08:00; Start 09/14/18 at 09:00 Quetiapine Fumarate (SEROquel) 200 mg DAILY PO Last administered on 09/16/18 09:27; Start 09/14/18 at 09:00; Stop 09/16/18 at 11:17; Status DC Quetiapine Fumarate (SEROquel) 300 mg DAILY@1500 PO Last administered on 09/15/18at 15:06; Start 09/14/18 at 15:00; Stop 09/16/18 at 11:17; Status DC Quetiapine Fumarate (SEROquel) 300 mg HS PO Last administered on 09/17/18at 19:56; Start 09/13/18 at 22:30 Quetiapine Fumarate (SEROquel) 100 mg DAILY PO Last administered on 09/17/18at 08:03; Start 09/17/18 at 09:00 Quetiapine Fumarate (SEROquel) 200 mg DAILY@1500 PO Last administered on 09/17/18at 14:18; Start 09/16/18 at 15:00 Sertraline HCl (Zoloft) 50 mg DAILY PO Last administered on 09/17/18at 08:03; Start 09/17/18 at 09:00 Active Scripts Active Reported Seroquel (Quetiapine Fumarate) 300 Mg Tablet 300 Mg PO HS Seroquel (Quetiapine Fumarate) 300 Mg Tablet 300 Mg PO DAILY@1500 Seroquel (Quetiapine Fumarate) 200 Mg Tablet 200 Mg PO DAILY Vitamin D3 (Cholecalciferol (Vitamin D3)) 1,000 Unit Tablet 4,000 Unit PO DAILY Simvastatin 10 Mg Tablet 10 Mg PO HS Olanzapine 20 Mg Tablet 20 Mg PO DAILY Nuedexta 20-10 Mg Capsule (Dextromethorphan Hbr/Quinidine) 1 Each Capsule 1 Each PO BID Tylenol (Acetaminophen) 325 Mg Tablet 325 Mg PO TID Metoprolol Succinate ( Xl ) (Metoprolol Succinate) 25 Mg Tab.er.24h 25 Mg PO DAILY Metformin Hcl 500 Mg Tablet 500 Mg PO BIDWMEALS Lorazepam 0.5 Mg Tablet 0.5 Mg PO PRN TID PRN Levothyroxine Sodium 50 Mcg Tablet 50 Mcg PO DAILYAC Duoneb 0.5-3(2.5) Mg/3 Ml (Albuterol/Ipratropium) 3 Ml Ampul.neb 3 Ml NEB PRN Q6HRS PRN Famotidine 20 Mg Tablet 20 Mg PO HS Donepezil Hcl 10 Mg Tablet 10 Mg PO HS Docusate Sodium 100 Mg Capsule 100 Mg PO BID Depakote Sprinkle (Divalproex Sodium) 125 Mg Cap.sprink 750 Mg PO DAILY Depakote Sprinkle (Divalproex Sodium) 125 Mg Cap.sprink 1,000 Mg PO HS Biofreeze (Menthol) 118 Ml Gel..ml. 118 Ml TP PRN Q24HRS PRN Aspirin 81 Mg Tab.chew 81 Mg PO DAILY I have reviewed the current psychotropics carefully including drug interactions. Risk benefit ratio favors no change other than as noted in my dictated progress note. Diagnosis: Problems: (1) Anxiety disorder (2) Dementia in Alzheimer's disease with delusions (3) Dementia in Alzheimer's disease with depression (4) Dementia, vascular, with delusions (5) Dementia, vascular, with depression (6) Impulse control disorder KAMILA GOMEZ MD Sep 17, 2018 22:43
[2018-09-18] MEDS: LEVOTHYROXINE 50 MCG TABLET PO SCH (05:22)
[2018-09-18 06:16] VITALS: BP 105/63
[2018-09-18] MEDS: ASPIRIN 81 MG TAB.CHEW PO SCH (08:25)
[2018-09-18] MEDS: metFORMIN 500 MG TABLET PO SCH ×2 (08:25→15:44)
[2018-09-18] MEDS: DOCUSATE SODIUM 100 MG CAPSULE PO SCH ×2 (08:25→19:37)
[2018-09-18] MEDS: DIVALPROEX 125 MG CAP.SPRINK PO SCH ×2 (08:26→19:37)
[2018-09-18] MEDS: DEXTROMETHORPHAN/QUINIDINE 20/10MG CAPSULE. PO SCH ×2 (08:26→19:37)
[2018-09-18] MEDS: QUEtiapine 100 MG TABLET. PO SCH ×3 (08:27→19:36)
[2018-09-18] MEDS: ACETAMINOPHEN 325 MG TABLET PO SCH ×3 (08:28→19:36)
[2018-09-18] MEDS: CHOLECALCIFEROL (VITAMIN D3) 1,000 UNIT TABLET PO SCH (08:28)
[2018-09-18] MEDS: METOPROLOL SUCC 24HR ER 25 MG TAB.ER.24H. PO SCH (08:28)
[2018-09-18] MEDS: SERTRALINE 50 MG TABLET. PO SCH (08:29)
[2018-09-18] MEDS: OLANZapine 10 MG TABLET PO SCH (08:29)
[2018-09-18 15:57] VITALS: BP 144/98
[2018-09-18] MEDS: SIMVASTATIN 10 MG TABLET PO SCH (19:36)
[2018-09-18] MEDS: FAMOTIDINE 20 MG TABLET PO SCH (19:36)
[2018-09-18] MEDS: DONEPEZIL HCL 10 MG TABLET PO SCH (19:37)
--- NOTE | 2018-09-18 22:52 | PDOC ---
Exam Note: Og Note: Please also refer to the separate dictated note~for this date of service dictated separately.~Patient seen individually. Discussed the patient with Nursing staff reviewed the chart.~Reviewed interim history and current functioning. Reviewed vital signs,~Labs/ Radiology~and current medications noted below. Continue current treatment with the changes noted in the dictated addendum note Assessment: Vital Signs: Vital Signs Date Time Temp Pulse Resp B/P (MAP) Pulse Ox O2 Delivery O2 Flow Rate FiO2 09/18/18 15:57 97.8 77 18 144/98 (113) 94 Room Air I&O Intake and Output 09/18/18 07:00 Intake Total 1200 ml Balance 1200 ml Intake Oral 1200 ml Labs: Laboratory Tests Test 09/18/18 07:06 Glucose (Fingerstick) 81 mg/dL (70-99) Current Medications: Meds: Current Medications Acetaminophen (Tylenol) 650 mg PRN Q6HRS PRN PO PAIN / TEMP; Start 09/13/18 at 18:45 Multi-Ingredient Ointment (Analgesic [place]) 1 johnny PRN QID PRN TP MUSCLE PAIN; Start 09/13/18 at 18:45 Al Hydroxide/Mg Hydroxide (Mylanta Plus Xs) 15 ml PRN AFTMEALHC PRN PO DYSPEPSIA; Start 09/13/18 at 18:45 Magnesium Hydroxide (Milk Of Magnesia) 2,400 mg PRN QHS PRN PO CONSTIPATION; Start 09/13/18 at 18:45 Acetaminophen (Tylenol) 325 mg TID PO Last administered on 09/18/18at 19:36; Start 09/14/18 at 09:00 Vitamin D (Vitamin D3) 4,000 unit DAILY PO Last administered on 09/18/18at 08:28; Start 09/14/18 at 09:00 Dextromethorphan/ Quinidine (Nuedexta 20-10 Mg Capsule) 1 cap BID PO Last administered on 09/18/18at 19:37; Start 09/13/18 at 22:00 Albuterol/ Ipratropium (Duoneb) 3 ml PRN Q6HRS PRN NEB COUGH; Start 09/13/18 at 21:15 Metoprolol Succinate (Toprol Xl) 25 mg DAILY PO Last administered on 09/18/18at 08:28; Start 09/14/18 at 09:00 Simvastatin (Zocor) 10 mg HS PO Last administered on 09/18/18 19:36; Start 09/13/18 at 22:00 Aspirin (Children'S Aspirin) 81 mg DAILY PO Last administered on 09/18/18 08:25; Start 09/14/18 at 08:00 Divalproex Sodium (Depakote Sprinkles) 1,000 mg HS PO Last administered on 09/18/18 19:37; Start 09/13/18 at 22:00 Divalproex Sodium (Depakote Sprinkles) 750 mg DAILY PO Last administered on 09/18/18 08:26; Start 09/14/18 at 09:00 Docusate Sodium (Colace) 100 mg BID PO Last administered on 09/18/18 19:37; Start 09/13/18 at 22:00 Donepezil HCl (Aricept) 10 mg HS PO Last administered on 09/18/18 19:37; Start 09/13/18 at 22:00 Famotidine (Pepcid) 20 mg HS PO Last administered on 09/18/18 19:36; Start 09/13/18 at 22:00 Levothyroxine Sodium (Synthroid) 50 mcg DAILY06 PO Last administered on 09/18/18 05:22; Start 09/14/18 at 06:00 Lorazepam (Ativan) 0.5 mg PRN TID PRN PO ANXIETY / AGITATION; Start 09/13/18 at 21:30 Non-Formulary Medication (Menthol (Biofreeze)) 118 ml PRN Q24HRS PRN TP PAIN; Start 09/13/18 at 21:15; Status UNV Metformin HCl (Glucophage) 500 mg BIDWMEALS PO Last administered on 09/18/18 15:44; Start 09/14/18 at 08:00 Olanzapine (ZyPREXA) 20 mg DAILY PO Last administered on 09/18/18 08:29; Start 09/14/18 at 09:00 Quetiapine Fumarate (SEROquel) 200 mg DAILY PO Last administered on 09/16/18 09:27; Start 09/14/18 at 09:00; Stop 09/16/18 at 11:17; Status DC Quetiapine Fumarate (SEROquel) 300 mg DAILY@1500 PO Last administered on 09/15at 15:06; Start 09/14/18 at 15:00; Stop 09/16/18 at 11:17; Status DC Quetiapine Fumarate (SEROquel) 300 mg HS PO Last administered on 09/18/18at 19:36; Start 09/13/18 at 22:30 Quetiapine Fumarate (SEROquel) 100 mg DAILY PO Last administered on 09/18/18at 08:27; Start 09/17/18 at 09:00 Quetiapine Fumarate (SEROquel) 200 mg DAILY@1500 PO Last administered on 09/18/18at 15:45; Start 09/16/18 at 15:00 Sertraline HCl (Zoloft) 50 mg DAILY PO Last administered on 09/18/18at 08:29; Start 09/17/18 at 09:00 Hydroxyzine HCl (Atarax) 25 mg PRN Q2HR PRN PO ANXIETY / AGITATION; Start 09/18/18 at 22:30 Active Scripts Active Reported Seroquel (Quetiapine Fumarate) 300 Mg Tablet 300 Mg PO HS Seroquel (Quetiapine Fumarate) 300 Mg Tablet 300 Mg PO DAILY@1500 Seroquel (Quetiapine Fumarate) 200 Mg Tablet 200 Mg PO DAILY Vitamin D3 (Cholecalciferol (Vitamin D3)) 1,000 Unit Tablet 4,000 Unit PO DAILY Simvastatin 10 Mg Tablet 10 Mg PO HS Olanzapine 20 Mg Tablet 20 Mg PO DAILY Nuedexta 20-10 Mg Capsule (Dextromethorphan Hbr/Quinidine) 1 Each Capsule 1 Each PO BID Tylenol (Acetaminophen) 325 Mg Tablet 325 Mg PO TID Metoprolol Succinate ( Xl ) (Metoprolol Succinate) 25 Mg Tab.er.24h 25 Mg PO DAILY Metformin Hcl 500 Mg Tablet 500 Mg PO BIDWMEALS Lorazepam 0.5 Mg Tablet 0.5 Mg PO PRN TID PRN Levothyroxine Sodium 50 Mcg Tablet 50 Mcg PO DAILYAC Duoneb 0.5-3(2.5) Mg/3 Ml (Albuterol/Ipratropium) 3 Ml Ampul.neb 3 Ml NEB PRN Q6HRS PRN Famotidine 20 Mg Tablet 20 Mg PO HS Donepezil Hcl 10 Mg Tablet 10 Mg PO HS Docusate Sodium 100 Mg Capsule 100 Mg PO BID Depakote Sprinkle (Divalproex Sodium) 125 Mg Cap.sprink 750 Mg PO DAILY Depakote Sprinkle (Divalproex Sodium) 125 Mg Cap.sprink 1,000 Mg PO HS Biofreeze (Menthol) 118 Ml Gel..ml. 118 Ml TP PRN Q24HRS PRN Aspirin 81 Mg Tab.chew 81 Mg PO DAILY I have reviewed the current psychotropics carefully including drug interactions. Risk benefit ratio favors no change other than as noted in my dictated progress note. Diagnosis: Problems: (1) Anxiety disorder (2) Dementia in Alzheimer's disease with delusions (3) Dementia in Alzheimer's disease with depression (4) Dementia, vascular, with delusions (5) Dementia, vascular, with depression (6) Impulse control disorder KAMILA GOMEZ MD Sep 18, 2018 22:52
[2018-09-19] MEDS: LEVOTHYROXINE 50 MCG TABLET PO SCH (04:53)
[2018-09-19 05:56] VITALS: BP 113/73
[2018-09-19] MEDS: DOCUSATE SODIUM 100 MG CAPSULE PO SCH ×2 (08:19→19:40)
[2018-09-19] MEDS: QUEtiapine 100 MG TABLET. PO SCH ×3 (08:19→19:40)
[2018-09-19] MEDS: CHOLECALCIFEROL (VITAMIN D3) 1,000 UNIT TABLET PO SCH (08:19)
[2018-09-19] MEDS: metFORMIN 500 MG TABLET PO SCH ×2 (08:19→17:08)
[2018-09-19] MEDS: METOPROLOL SUCC 24HR ER 25 MG TAB.ER.24H. PO SCH (08:20)
[2018-09-19] MEDS: ASPIRIN 81 MG TAB.CHEW PO SCH (08:20)
[2018-09-19] MEDS: SERTRALINE 50 MG TABLET. PO SCH (08:20)
[2018-09-19] MEDS: OLANZapine 10 MG TABLET PO SCH (08:20)
[2018-09-19] MEDS: ACETAMINOPHEN 325 MG TABLET PO SCH ×3 (08:20→19:40)
[2018-09-19] MEDS: DIVALPROEX 125 MG CAP.SPRINK PO SCH ×2 (08:20→19:41)
[2018-09-19] MEDS: DEXTROMETHORPHAN/QUINIDINE 20/10MG CAPSULE. PO SCH ×2 (08:21→19:43)
[2018-09-19 08:27] LABS: BASO # 0.1 x10^3/uL (0.0-0.2); BASO % 1 % (0-3); EOS # 0.3 x10^3/uL (0.0-0.7); EOS % 3 % (0-3); HEMATOCRIT 38.9 % (39.0-53.0); HEMOGLOBIN 12.6 g/dL (13.0-17.5); LYMPH # 2.7 x10^3/uL (1.0-4.8); LYMPH % 27 % (24-48); MEAN CORPUSCULAR HEMOGLOBIN 25 pg (25-35); MEAN CORPUSCULAR HGB CONC 33 g/dL (31-37); MEAN CORPUSCULAR VOLUME 78 fL (79-100); MONO # 0.9 x10^3/uL (0.0-1.1); MONO % 9 % (0-9); NEUT # 5.9 x10^3uL (1.8-7.7); NEUT % 60 % (31-73); PLATELET COUNT 308 x10^3/uL (140-400); RED BLOOD COUNT 4.96 x10^6/uL (4.30-5.70); RED CELL DISTRIBUTION WIDTH 17.8 % (11.5-14.5); WHITE BLOOD COUNT 9.9 x10^3/uL (4.0-11.0)
[2018-09-19 08:34] LABS: ALBUMIN 2.8 g/dL (3.4-5.0); ALBUMIN/GLOBULIN RATIO 0.6 (1.0-1.7); CALCIUM 8.8 mg/dL (8.5-10.1); GFR 73.2; POTASSIUM 4.5 mmol/L (3.5-5.1); TOTAL BILIRUBIN 0.2 mg/dL (0.2-1.0); TOTAL PROTEIN 7.4 g/dL (6.4-8.2)
[2018-09-19 09:06] LABS: % BANDS 1 % (0-9); % BASOS 1 % (0-3); % EOS 2 % (0-5); % LYMPHS 29 % (24-48); % METAS 0 % (0-0); % MONOS 7 % (0-10); % MYELOS 0 % (0-0); % PROS 1 % (0-0); % SEGS 59 % (35-66)
[2018-09-19 09:07] LABS: ANISOCYTOSIS PRESENT; HYPOCHROMIA PRESENT; PLT ESTIMATE ADEQUATE (ADEQUATE); TOXIC GRANULATION SLIGHT
[2018-09-19 16:37] VITALS: BP 110/71
[2018-09-19] MEDS: SIMVASTATIN 10 MG TABLET PO SCH (19:40)
[2018-09-19] MEDS: DONEPEZIL HCL 10 MG TABLET PO SCH (19:40)
[2018-09-19] MEDS: FAMOTIDINE 20 MG TABLET PO SCH (19:40)
--- NOTE | 2018-09-19 23:12 | PDOC ---
Exam Note: Og Note: Please also refer to the separate dictated note~for this date of service dictated separately.~Patient seen individually. Discussed the patient with Nursing staff reviewed the chart.~Reviewed interim history and current functioning. Reviewed vital signs,~Labs/ Radiology~and current medications noted below. Continue current treatment with the changes noted in the dictated addendum note Assessment: Vital Signs: Vital Signs Date Time Temp Pulse Resp B/P (MAP) Pulse Ox O2 Delivery O2 Flow Rate FiO2 09/19/18 16:37 98.3 73 16 110/71 (84) 92 09/18/18 15:57 Room Air I&O Intake and Output 09/19/18 06:59 Intake Total 1440 ml Balance 1440 ml Intake Oral 1440 ml Labs: Laboratory Tests Test 09/19/18 07:14 09/19/18 07:55 Glucose (Fingerstick) 103 mg/dL (70-99) H White Blood Count 9.9 x10^3/uL (4.0-11.0) Red Blood Count 4.96 x10^6/uL (4.30-5.70) Hemoglobin 12.6 g/dL (13.0-17.5) L Hematocrit 38.9 % (39.0-53.0) L Mean Corpuscular Volume 78 fL (79-100) L Mean Corpuscular Hemoglobin 25 pg (25-35) Mean Corpuscular Hemoglobin Concent 33 g/dL (31-37) Red Cell Distribution Width 17.8 % (11.5-14.5) H Platelet Count 308 x10^3/uL (140-400) Neutrophils (%) (Auto) 60 % (31-73) Lymphocytes (%) (Auto) 27 % (24-48) Monocytes (%) (Auto) 9 % (0-9) Eosinophils (%) (Auto) 3 % (0-3) Basophils (%) (Auto) 1 % (0-3) Neutrophils # (Auto) 5.9 x10^3uL (1.8-7.7) Lymphocytes # (Auto) 2.7 x10^3/uL (1.0-4.8) Monocytes # (Auto) 0.9 x10^3/uL (0.0-1.1) Eosinophils # (Auto) 0.3 x10^3/uL (0.0-0.7) Basophils # (Auto) 0.1 x10^3/uL (0.0-0.2) Segmented Neutrophils % 59 % (35-66) Band Neutrophils % 1 % (0-9) Lymphocytes % 29 % (24-48) Monocytes % 7 % (0-10) Eosinophils % 2 % (0-5) Basophils % 1 % (0-3) Metamyelocytes % 0 % (0-0) Myelocytes % 0 % (0-0) Promyelocytes % 1 % (0-0) H Toxic Granulation Slight Platelet Estimate Adequate (ADEQUATE) Hypochromasia Present Anisocytosis Present Sodium Level 136 mmol/L (136-145) Potassium Level 4.5 mmol/L (3.5-5.1) Chloride Level 99 mmol/L (98-107) Carbon Dioxide Level 27 mmol/L (21-32) Anion Gap 10 (6-14) Blood Urea Nitrogen 18 mg/dL (8-26) Creatinine 1.0 mg/dL (0.7-1.3) Estimated GFR (Cockcroft-Gault) 73.2 BUN/Creatinine Ratio 18 (6-20) Glucose Level 92 mg/dL (70-99) Calcium Level 8.8 mg/dL (8.5-10.1) Total Bilirubin 0.2 mg/dL (0.2-1.0) Aspartate Amino Transferase (AST) 16 U/L (15-37) Alanine Aminotransferase (ALT) 12 U/L (16-63) L Alkaline Phosphatase 78 U/L (46-116) Total Protein 7.4 g/dL (6.4-8.2) Albumin 2.8 g/dL (3.4-5.0) L Albumin/Globulin Ratio 0.6 (1.0-1.7) L Current Medications: Meds: Current Medications Acetaminophen (Tylenol) 650 mg PRN Q6HRS PRN PO PAIN / TEMP; Start 09/13/18 at 18:45 Multi-Ingredient Ointment (Analgesic [place]) 1 johnny PRN QID PRN TP MUSCLE PAIN; Start 09/13/18 at 18:45 Al Hydroxide/Mg Hydroxide (Mylanta Plus Xs) 15 ml PRN AFTMEALHC PRN PO DYSPEPSIA; Start 09/13/18 at 18:45 Magnesium Hydroxide (Milk Of Magnesia) 2,400 mg PRN QHS PRN PO CONSTIPATION; Start 09/13/18 at 18:45 Acetaminophen (Tylenol) 325 mg TID PO Last administered on 09/19/18 19:40; Start 09/14/18 at 09:00 Vitamin D (Vitamin D3) 4,000 unit DAILY PO Last administered on 09/19/18 08:19; Start 09/14/18 at 09:00 Dextromethorphan/ Quinidine (Nuedexta 20-10 Mg Capsule) 1 cap BID PO Last administered on 09/19/18 19:43; Start 09/13/18 at 22:00 Albuterol/ Ipratropium (Duoneb) 3 ml PRN Q6HRS PRN NEB COUGH; Start 09/13/18 at 21:15 Metoprolol Succinate (Toprol Xl) 25 mg DAILY PO Last administered on 09/19/18 08:20; Start 09/14/18 at 09:00 Simvastatin (Zocor) 10 mg HS PO Last administered on 09/19/18 19:40; Start 09/13/18 at 22:00 Aspirin (Children'S Aspirin) 81 mg DAILY PO Last administered on 09/19/18 08:20; Start 09/14/18 at 08:00 Divalproex Sodium (Depakote Sprinkles) 1,000 mg HS PO Last administered on 09/19/18 19:41; Start 09/13/18 at 22:00 Divalproex Sodium (Depakote Sprinkles) 750 mg DAILY PO Last administered on 09/19/18 08:20; Start 09/14/18 at 09:00 Docusate Sodium (Colace) 100 mg BID PO Last administered on 09/19/18 19:40; Start 09/13/18 at 22:00 Donepezil HCl (Aricept) 10 mg HS PO Last administered on 09/19/18 19:40; Start 09/13/18 at 22:00 Famotidine (Pepcid) 20 mg HS PO Last administered on 09/19/18 19:40; Start 09/13/18 at 22:00 Levothyroxine Sodium (Synthroid) 50 mcg DAILY06 PO Last administered on 09/19/18 04:53; Start 09/14/18 at 06:00 Lorazepam (Ativan) 0.5 mg PRN TID PRN PO ANXIETY / AGITATION; Start 09/13/18 at 21:30 Non-Formulary Medication (Menthol (Biofreeze)) 118 ml PRN Q24HRS PRN TP PAIN; Start 09/13/18 at 21:15; Status UNV Metformin HCl (Glucophage) 500 mg BIDWMEALS PO Last administered on 09/19/18 17:08; Start 09/14/18 at 08:00 Olanzapine (ZyPREXA) 20 mg DAILY PO Last administered on 09/19/18at 08:20; Start 09/14/18 at 09:00 Quetiapine Fumarate (SEROquel) 200 mg DAILY PO Last administered on 09/16/18 09:27; Start 09/14/18 at 09:00; Stop 09/16/18 at 11:17; Status DC Quetiapine Fumarate (SEROquel) 300 mg DAILY@1500 PO Last administered on 09/15/18at 15:06; Start 09/14/18 at 15:00; Stop 09/16/18 at 11:17; Status DC Quetiapine Fumarate (SEROquel) 300 mg HS PO Last administered on 09/19/18at 19:40; Start 09/13/18 at 22:30 Quetiapine Fumarate (SEROquel) 100 mg DAILY PO Last administered on 09/19/18at 08:19; Start 09/17/18 at 09:00 Quetiapine Fumarate (SEROquel) 200 mg DAILY@1500 PO Last administered on 09/19/18at 14:33; Start 09/16/18 at 15:00 Sertraline HCl (Zoloft) 50 mg DAILY PO Last administered on 09/19/18 08:20; Start 09/17/18 at 09:00 Hydroxyzine HCl (Atarax) 25 mg PRN Q2HR PRN PO ANXIETY / AGITATION; Start 09/18/18 at 22:30 Active Scripts Active Reported Seroquel (Quetiapine Fumarate) 300 Mg Tablet 300 Mg PO HS Seroquel (Quetiapine Fumarate) 300 Mg Tablet 300 Mg PO DAILY@1500 Seroquel (Quetiapine Fumarate) 200 Mg Tablet 200 Mg PO DAILY Vitamin D3 (Cholecalciferol (Vitamin D3)) 1,000 Unit Tablet 4,000 Unit PO DAILY Simvastatin 10 Mg Tablet 10 Mg PO HS Olanzapine 20 Mg Tablet 20 Mg PO DAILY Nuedexta 20-10 Mg Capsule (Dextromethorphan Hbr/Quinidine) 1 Each Capsule 1 Each PO BID Tylenol (Acetaminophen) 325 Mg Tablet 325 Mg PO TID Metoprolol Succinate ( Xl ) (Metoprolol Succinate) 25 Mg Tab.er.24h 25 Mg PO DAILY Metformin Hcl 500 Mg Tablet 500 Mg PO BIDWMEALS Lorazepam 0.5 Mg Tablet 0.5 Mg PO PRN TID PRN Levothyroxine Sodium 50 Mcg Tablet 50 Mcg PO DAILYAC Duoneb 0.5-3(2.5) Mg/3 Ml (Albuterol/Ipratropium) 3 Ml Ampul.neb 3 Ml NEB PRN Q6HRS PRN Famotidine 20 Mg Tablet 20 Mg PO HS Donepezil Hcl 10 Mg Tablet 10 Mg PO HS Docusate Sodium 100 Mg Capsule 100 Mg PO BID Depakote Sprinkle (Divalproex Sodium) 125 Mg Cap.sprink 750 Mg PO DAILY Depakote Sprinkle (Divalproex Sodium) 125 Mg Cap.sprink 1,000 Mg PO HS Biofreeze (Menthol) 118 Ml Gel..ml. 118 Ml TP PRN Q24HRS PRN Aspirin 81 Mg Tab.chew 81 Mg PO DAILY I have reviewed the current psychotropics carefully including drug interactions. Risk benefit ratio favors no change other than as noted in my dictated progress note. Diagnosis: Problems: (1) Anxiety disorder (2) Dementia in Alzheimer's disease with delusions (3) Dementia in Alzheimer's disease with depression (4) Dementia, vascular, with delusions (5) Dementia, vascular, with depression (6) Impulse control disorder KAMILA GOMEZ MD Sep 19, 2018 23:12
[2018-09-20 05:46] VITALS: BP 119/75
[2018-09-20] MEDS: LEVOTHYROXINE 50 MCG TABLET PO SCH (05:58)
[2018-09-20] MEDS: DIVALPROEX 125 MG CAP.SPRINK PO SCH ×2 (08:00→20:40)
[2018-09-20] MEDS: CHOLECALCIFEROL (VITAMIN D3) 1,000 UNIT TABLET PO SCH (08:01)
[2018-09-20] MEDS: QUEtiapine 100 MG TABLET. PO SCH ×3 (08:01→20:40)
[2018-09-20] MEDS: DOCUSATE SODIUM 100 MG CAPSULE PO SCH ×2 (08:01→20:40)
[2018-09-20] MEDS: ACETAMINOPHEN 325 MG TABLET PO SCH ×3 (08:01→20:41)
[2018-09-20] MEDS: OLANZapine 10 MG TABLET PO SCH (08:01)
[2018-09-20] MEDS: METOPROLOL SUCC 24HR ER 25 MG TAB.ER.24H. PO SCH (08:01)
[2018-09-20] MEDS: ASPIRIN 81 MG TAB.CHEW PO SCH (08:02)
[2018-09-20] MEDS: SERTRALINE 50 MG TABLET. PO SCH (08:02)
[2018-09-20] MEDS: metFORMIN 500 MG TABLET PO SCH ×2 (08:02→17:23)
[2018-09-20] MEDS: DEXTROMETHORPHAN/QUINIDINE 20/10MG CAPSULE. PO SCH ×2 (08:03→20:42)
[2018-09-20 16:44] VITALS: BP 111/69
--- NOTE | 2018-09-20 20:31 | PN ---
DATE: 09/17/2018 PSYCHIATRIC PROGRESS NOTE This late entry 09/17/2018 covers elements not covered in my initial note. SUBJECTIVE: I met with the patient in the evening. The patient slept 6-1/2 hours previous night. He participates in groups, but does not interact very much, somewhat withdrawn, met with him in the day room. REVIEW OF SYSTEMS: Ambulation impaired, in wheelchair. No CV, , pulmonary, eye system symptoms on review. MENTAL STATUS EXAM: Oriented to himself and situation. Speech is coherent, low in volume. Abstraction fair, computation impaired, language function intact, attention span short. Mood and affect withdrawn, less angry and aggressive. LABORATORY DATA: Reviewed. IMPRESSION: Unchanged from initial note. PLAN: No change from initial note. MAN Samina GOMEZ MD DR: KSENIA/rocky JOB#: [id number] / [id number]
[2018-09-20] MEDS: SIMVASTATIN 10 MG TABLET PO SCH (20:40)
[2018-09-20] MEDS: DONEPEZIL HCL 10 MG TABLET PO SCH (20:41)
[2018-09-20] MEDS: FAMOTIDINE 20 MG TABLET PO SCH (20:41)
--- NOTE | 2018-09-20 21:08 | PN ---
DATE: 09/18/2018 PSYCHIATRIC PROGRESS NOTE This late entry 09/18/2018 covers elements not covered in my initial note. SUBJECTIVE: I met with the patient in the evening. The patient slept 7-1/2 hours previous night. He is compliant with his medications, gets anxious, restless, labile and we have added Atarax 25 mg q. 2 hours p.r.n. anxiety, max 100 mg in 24 hours; nursing staff had called me as an emergency for this. Irritable at times, was in the day room, yelling, calling other people names. REVIEW OF SYSTEMS: Ambulation impaired, in wheelchair. No CV, , pulmonary, eye system symptoms on review. Reliability poor. MENTAL STATUS EXAM: Oriented to himself and situation. Speech moderate latency, often responses monosyllabic. Abstraction fair, computation impaired, language function intact, attention span short. Mood and affect somewhat labile. LABORATORY DATA: Reviewed. IMPRESSION: Unchanged from initial note. PLAN: No change from initial note other than adding the Atarax p.r.n. KAMILA GOMEZ MD DR: KSENIA/rocky JOB#: [id number] / [id number]
--- NOTE | 2018-09-20 22:07 | PN ---
DATE: 09/19/2018 PSYCHIATRIC PROGRESS NOTE This late entry 09/19/2018 covers elements not covered in my initial note. SUBJECTIVE: I met with the patient in the evening. The patient slept 7-1/2 hours previous night. 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 If interactions with him are slower paced, he seems to respond better. REVIEW OF SYSTEMS: Ambulation impaired, in wheelchair. No CV, , pulmonary, eye system symptoms on review. MENTAL STATUS EXAM: Oriented to himself and situation. Speech has some latency, low in volume, coherent, abstraction fair, computation impaired, language function intact, attention span short. Mood and affect somewhat withdrawn. LABORATORY DATA: Reviewed. IMPRESSION: Schizoaffective disorder, bipolar type, mixed with psychotic features, in partial remission; major neurocognitive disorder, Alzheimer, vascular with depression, delusions, impulse control disorder. PLAN: Continue psychotropics from initial note. Valproic acid level is therapeutic. CT head shows atrophy, white matter changes, no acute changes. Continue rest unchanged and may consider increasing Zoloft in due course, currently 50 mg a day. KAMILA GOMEZ MD DR: KSENIA/rocky JOB#: [id number] / [id number]
--- NOTE | 2018-09-20 22:43 | PDOC ---
Exam Note: Og Note: Please also refer to the separate dictated note~for this date of service dictated separately.~Patient seen individually. Discussed the patient with Nursing staff reviewed the chart.~Reviewed interim history and current functioning. Reviewed vital signs,~Labs/ Radiology~and current medications noted below. Continue current treatment with the changes noted in the dictated addendum note Assessment: Vital Signs: Vital Signs Date Time Temp Pulse Resp B/P (MAP) Pulse Ox O2 Delivery O2 Flow Rate FiO2 09/20/18 16:44 97.3 71 18 111/69 (83) 94 09/18/18 15:57 Room Air I&O Intake and Output 09/20/18 07:00 Intake Total 1560 ml Balance 1560 ml Intake Oral 1560 ml Labs: Laboratory Tests Test 09/20/18 07:00 Glucose (Fingerstick) 92 mg/dL (70-99) Current Medications: Meds: Current Medications Acetaminophen (Tylenol) 650 mg PRN Q6HRS PRN PO PAIN / TEMP; Start 09/13/18 at 18:45 Multi-Ingredient Ointment (Analgesic [place]) 1 johnny PRN QID PRN TP MUSCLE PAIN; Start 09/13/18 at 18:45 Al Hydroxide/Mg Hydroxide (Mylanta Plus Xs) 15 ml PRN AFTMEALHC PRN PO DYSPEPSIA; Start 09/13/18 at 18:45 Magnesium Hydroxide (Milk Of Magnesia) 2,400 mg PRN QHS PRN PO CONSTIPATION; Start 09/13/18 at 18:45 Acetaminophen (Tylenol) 325 mg TID PO Last administered on 09/20/18at 20:41; Start 09/14/18 at 09:00 Vitamin D (Vitamin D3) 4,000 unit DAILY PO Last administered on 09/20/18at 08:01; Start 09/14/18 at 09:00 Dextromethorphan/ Quinidine (Nuedexta 20-10 Mg Capsule) 1 cap BID PO Last administered on 09/20/18at 20:42; Start 09/13/18 at 22:00 Albuterol/ Ipratropium (Duoneb) 3 ml PRN Q6HRS PRN NEB COUGH; Start 09/13/18 at 21:15 Metoprolol Succinate (Toprol Xl) 25 mg DAILY PO Last administered on 09/20/18at 08:01; Start 09/14/18 at 09:00 Simvastatin (Zocor) 10 mg HS PO Last administered on 09/20/18 20:40; Start 09/13/18 at 22:00 Aspirin (Children'S Aspirin) 81 mg DAILY PO Last administered on 09/20/18 08:02; Start 09/14/18 at 08:00 Divalproex Sodium (Depakote Sprinkles) 1,000 mg HS PO Last administered on 09/20/18 20:40; Start 09/13/18 at 22:00 Divalproex Sodium (Depakote Sprinkles) 750 mg DAILY PO Last administered on 09/20/18 08:00; Start 09/14/18 at 09:00 Docusate Sodium (Colace) 100 mg BID PO Last administered on 09/20/18 20:40; Start 09/13/18 at 22:00 Donepezil HCl (Aricept) 10 mg HS PO Last administered on 09/20/18 20:41; Start 09/13/18 at 22:00 Famotidine (Pepcid) 20 mg HS PO Last administered on 09/20/18 20:41; Start 09/13/18 at 22:00 Levothyroxine Sodium (Synthroid) 50 mcg DAILY06 PO Last administered on 09/20/18 05:58; Start 09/14/18 at 06:00 Lorazepam (Ativan) 0.5 mg PRN TID PRN PO ANXIETY / AGITATION; Start 09/13/18 at 21:30 Non-Formulary Medication (Menthol (Biofreeze)) 118 ml PRN Q24HRS PRN TP PAIN; Start 09/13/18 at 21:15; Status UNV Metformin HCl (Glucophage) 500 mg BIDWMEALS PO Last administered on 09/20/18 17:23; Start 09/14/18 at 08:00 Olanzapine (ZyPREXA) 20 mg DAILY PO Last administered on 09/20/18 08:01; Start 09/14/18 at 09:00 Quetiapine Fumarate (SEROquel) 200 mg DAILY PO Last administered on 09/16/18 09:27; Start 09/14/18 at 09:00; Stop 09/16/18 at 11:17; Status DC Quetiapine Fumarate (SEROquel) 300 mg DAILY@1500 PO Last administered on 09/15/18at 15:06; Start 09/14/18 at 15:00; Stop 09/16/18 at 11:17; Status DC Quetiapine Fumarate (SEROquel) 300 mg HS PO Last administered on 09/20/18at 20:40; Start 09/13/18 at 22:30 Quetiapine Fumarate (SEROquel) 100 mg DAILY PO Last administered on 09/20/18at 08:01; Start 09/17/18 at 09:00 Quetiapine Fumarate (SEROquel) 200 mg DAILY@1500 PO Last administered on 09/20/18at 14:05; Start 09/16/18 at 15:00 Sertraline HCl (Zoloft) 50 mg DAILY PO Last administered on 09/20/18at 08:02; Start 09/17/18 at 09:00; Stop 09/20/18 at 19:36; Status DC Hydroxyzine HCl (Atarax) 25 mg PRN Q2HR PRN PO ANXIETY / AGITATION; Start 09/18/18 at 22:30 Polyethylene Glycol (miraLAX) 17 gm DAILY PO ; Start 09/21/18 at 09:00 Sertraline HCl (Zoloft) 75 mg DAILY PO ; Start 09/21/18 at 09:00 Active Scripts Active Reported Seroquel (Quetiapine Fumarate) 300 Mg Tablet 300 Mg PO HS Seroquel (Quetiapine Fumarate) 300 Mg Tablet 300 Mg PO DAILY@1500 Seroquel (Quetiapine Fumarate) 200 Mg Tablet 200 Mg PO DAILY Vitamin D3 (Cholecalciferol (Vitamin D3)) 1,000 Unit Tablet 4,000 Unit PO DAILY Simvastatin 10 Mg Tablet 10 Mg PO HS Olanzapine 20 Mg Tablet 20 Mg PO DAILY Nuedexta 20-10 Mg Capsule (Dextromethorphan Hbr/Quinidine) 1 Each Capsule 1 Each PO BID Tylenol (Acetaminophen) 325 Mg Tablet 325 Mg PO TID Metoprolol Succinate ( Xl ) (Metoprolol Succinate) 25 Mg Tab.er.24h 25 Mg PO DAILY Metformin Hcl 500 Mg Tablet 500 Mg PO BIDWMEALS Lorazepam 0.5 Mg Tablet 0.5 Mg PO PRN TID PRN Levothyroxine Sodium 50 Mcg Tablet 50 Mcg PO DAILYAC Duoneb 0.5-3(2.5) Mg/3 Ml (Albuterol/Ipratropium) 3 Ml Ampul.neb 3 Ml NEB PRN Q6HRS PRN Famotidine 20 Mg Tablet 20 Mg PO HS Donepezil Hcl 10 Mg Tablet 10 Mg PO HS Docusate Sodium 100 Mg Capsule 100 Mg PO BID Depakote Sprinkle (Divalproex Sodium) 125 Mg Cap.sprink 750 Mg PO DAILY Depakote Sprinkle (Divalproex Sodium) 125 Mg Cap.sprink 1,000 Mg PO HS Biofreeze (Menthol) 118 Ml Gel..ml. 118 Ml TP PRN Q24HRS PRN Aspirin 81 Mg Tab.chew 81 Mg PO DAILY I have reviewed the current psychotropics carefully including drug interactions. Risk benefit ratio favors no change other than as noted in my dictated progress note. Diagnosis: Problems: (1) Anxiety disorder (2) Dementia in Alzheimer's disease with delusions (3) Dementia in Alzheimer's disease with depression (4) Dementia, vascular, with delusions (5) Dementia, vascular, with depression (6) Impulse control disorder KAMILA GOMEZ MD Sep 20, 2018 22:43
[2018-09-21] MEDS: LEVOTHYROXINE 50 MCG TABLET PO SCH (06:14)
[2018-09-21 06:23] VITALS: BP 127/62
[2018-09-21] MEDS: DIVALPROEX 125 MG CAP.SPRINK PO SCH ×2 (08:12→20:50)
[2018-09-21] MEDS: ASPIRIN 81 MG TAB.CHEW PO SCH (08:13)
[2018-09-21] MEDS: QUEtiapine 100 MG TABLET. PO SCH ×3 (08:13→20:51)
[2018-09-21] MEDS: CHOLECALCIFEROL (VITAMIN D3) 1,000 UNIT TABLET PO SCH (08:13)
[2018-09-21] MEDS: ACETAMINOPHEN 325 MG TABLET PO SCH ×3 (08:13→20:50)
[2018-09-21] MEDS: DOCUSATE SODIUM 100 MG CAPSULE PO SCH ×2 (08:13→20:50)
[2018-09-21] MEDS: OLANZapine 10 MG TABLET PO SCH (08:13)
[2018-09-21] MEDS: METOPROLOL SUCC 24HR ER 25 MG TAB.ER.24H. PO SCH (08:14)
[2018-09-21] MEDS: metFORMIN 500 MG TABLET PO SCH ×2 (08:18→17:40)
[2018-09-21] MEDS: DEXTROMETHORPHAN/QUINIDINE 20/10MG CAPSULE. PO SCH ×2 (08:18→20:52)
[2018-09-21] MEDS: POLYETHYLENE GLYCOL 3350 17 GM PACKET. PO SCH (08:18)
[2018-09-21] MEDS: SERTRALINE 50 MG TABLET. PO SCH (08:18)
[2018-09-21] MEDS: MAG HYDROX/AL HYDROX/SIMETH 30 ML ORAL.SUSP PO PRN (13:55)
[2018-09-21 16:01] VITALS: BP 98/61
[2018-09-21] MEDS: DONEPEZIL HCL 10 MG TABLET PO SCH (20:50)
[2018-09-21] MEDS: FAMOTIDINE 20 MG TABLET PO SCH (20:50)
[2018-09-21] MEDS: SIMVASTATIN 10 MG TABLET PO SCH (20:50)
--- NOTE | 2018-09-21 21:18 | PN ---
DATE: 09/20/2018 PSYCHIATRIC PROGRESS NOTE This late entry 09/20/2018 covers elements not covered in my initial note. SUBJECTIVE: I met with the patient in the evening. The patient slept 7-1/2 hours previous night. Previous night, he was yelling, attention seeking, restless, demanding per nursing staff, but during the day 09/20/2018, he is better. He was yelling during toileting. REVIEW OF SYSTEMS: Ambulation impaired, in wheelchair. No CV, , pulmonary, eye, ENT system symptoms on review. He had urinated in the hallway in the evening. Reliability poor. MENTAL STATUS EXAM: Oriented to himself and situation. Speech has some latency, coherent, often responses monosyllabic. Abstraction fair, computation impaired, language function intact, attention span short. Social skills are poor, consistent with his diagnosis of possible autistic spectrum disorder. LABORATORY DATA: Reviewed. IMPRESSION: Unchanged from initial note. PLAN: Increase Zoloft from 50 mg a day to 75 mg a day. Rest unchanged. MAN Samina GOMEZ MD DR: KSENIA/rocky JOB#: [id number] / [id number]
--- NOTE | 2018-09-21 21:54 | PDOC ---
Exam Note: Og Note: Please also refer to the separate dictated note~for this date of service dictated separately.~Patient seen individually. Discussed the patient with Nursing staff reviewed the chart.~Reviewed interim history and current functioning. Reviewed vital signs,~Labs/ Radiology~and current medications noted below. Continue current treatment with the changes noted in the dictated addendum note Assessment: Vital Signs: Vital Signs Date Time Temp Pulse Resp B/P (MAP) Pulse Ox O2 Delivery O2 Flow Rate FiO2 09/21/18 16:01 97.7 72 16 98/61 (73) 98 Room Air I&O Intake and Output 09/21/18 06:59 Intake Total 1340 ml Balance 1340 ml Intake Oral 1340 ml # Voids 1 Labs: Laboratory Tests Test 09/21/18 07:30 09/21/18 19:33 Glucose (Fingerstick) 93 mg/dL (70-99) 143 mg/dL (70-99) H Current Medications: Meds: Current Medications Acetaminophen (Tylenol) 650 mg PRN Q6HRS PRN PO PAIN / TEMP; Start 09/13/18 at 18:45 Multi-Ingredient Ointment (Analgesic [place]) 1 johnny PRN QID PRN TP MUSCLE PAIN; Start 09/13/18 at 18:45 Al Hydroxide/Mg Hydroxide (Mylanta Plus Xs) 15 ml PRN AFTMEALHC PRN PO DYSPEPSIA Last administered on 09/21/18at 13:55; Start 09/13/18 at 18:45 Magnesium Hydroxide (Milk Of Magnesia) 2,400 mg PRN QHS PRN PO CONSTIPATION; Start 09/13/18 at 18:45 Acetaminophen (Tylenol) 325 mg TID PO Last administered on 09/21/18at 20:50; Start 09/14/18 at 09:00 Vitamin D (Vitamin D3) 4,000 unit DAILY PO Last administered on 09/21/18at 08:13; Start 09/14/18 at 09:00 Dextromethorphan/ Quinidine (Nuedexta 20-10 Mg Capsule) 1 cap BID PO Last administered on 09/21/18at 20:52; Start 09/13/18 at 22:00 Albuterol/ Ipratropium (Duoneb) 3 ml PRN Q6HRS PRN NEB COUGH; Start 09/13/18 at 21:15 Metoprolol Succinate (Toprol Xl) 25 mg DAILY PO Last administered on 09/21/18 08:14; Start 09/14/18 at 09:00 Simvastatin (Zocor) 10 mg HS PO Last administered on 09/21/18 20:50; Start 09/13/18 at 22:00 Aspirin (Children'S Aspirin) 81 mg DAILY PO Last administered on 09/21/18 08:13; Start 09/14/18 at 08:00 Divalproex Sodium (Depakote Sprinkles) 1,000 mg HS PO Last administered on 09/21/18 20:50; Start 09/13/18 at 22:00 Divalproex Sodium (Depakote Sprinkles) 750 mg DAILY PO Last administered on 09/21/18 08:12; Start 09/14/18 at 09:00 Docusate Sodium (Colace) 100 mg BID PO Last administered on 09/21/18 20:50; Start 09/13/18 at 22:00 Donepezil HCl (Aricept) 10 mg HS PO Last administered on 09/21/18 20:50; Start 09/13/18 at 22:00 Famotidine (Pepcid) 20 mg HS PO Last administered on 09/21/18 20:50; Start 09/13/18 at 22:00 Levothyroxine Sodium (Synthroid) 50 mcg DAILY06 PO Last administered on 09/21/18 06:14; Start 09/14/18 at 06:00 Lorazepam (Ativan) 0.5 mg PRN TID PRN PO ANXIETY / AGITATION; Start 09/13/18 at 21:30 Non-Formulary Medication (Menthol (Biofreeze)) 118 ml PRN Q24HRS PRN TP PAIN; Start 09/13/18 at 21:15; Status UNV Metformin HCl (Glucophage) 500 mg BIDWMEALS PO Last administered on 09/21/18 17:40; Start 09/14/18 at 08:00 Olanzapine (ZyPREXA) 20 mg DAILY PO Last administered on 09/21/18 08:13; Start 09/14/18 at 09:00 Quetiapine Fumarate (SEROquel) 200 mg DAILY PO Last administered on 09/16/18 09:27; Start 09/14/18 at 09:00; Stop 09/16/18 at 11:17; Status DC Quetiapine Fumarate (SEROquel) 300 mg DAILY@1500 PO Last administered on 09/15/18at 15:06; Start 09/14/18 at 15:00; Stop 09/16/18 at 11:17; Status DC Quetiapine Fumarate (SEROquel) 300 mg HS PO Last administered on 09/21/18at 20:51; Start 09/13/18 at 22:30 Quetiapine Fumarate (SEROquel) 100 mg DAILY PO Last administered on 09/21/18at 08:13; Start 09/17/18 at 09:00 Quetiapine Fumarate (SEROquel) 200 mg DAILY@1500 PO Last administered on 09/21/18at 13:55; Start 09/16/18 at 15:00 Sertraline HCl (Zoloft) 50 mg DAILY PO Last administered on 09/20/18at 08:02; Start 09/17/18 at 09:00; Stop 09/20/18 at 19:36; Status DC Hydroxyzine HCl (Atarax) 25 mg PRN Q2HR PRN PO ANXIETY / AGITATION; Start 09/18/18 at 22:30 Polyethylene Glycol (miraLAX) 17 gm DAILY PO Last administered on 09/21/18at 08:18; Start 09/21/18 at 09:00 Sertraline HCl (Zoloft) 75 mg DAILY PO Last administered on 09/21/18at 08:18; Start 09/21/18 at 09:00 Active Scripts Active Reported Seroquel (Quetiapine Fumarate) 300 Mg Tablet 300 Mg PO HS Seroquel (Quetiapine Fumarate) 300 Mg Tablet 300 Mg PO DAILY@1500 Seroquel (Quetiapine Fumarate) 200 Mg Tablet 200 Mg PO DAILY Vitamin D3 (Cholecalciferol (Vitamin D3)) 1,000 Unit Tablet 4,000 Unit PO DAILY Simvastatin 10 Mg Tablet 10 Mg PO HS Olanzapine 20 Mg Tablet 20 Mg PO DAILY Nuedexta 20-10 Mg Capsule (Dextromethorphan Hbr/Quinidine) 1 Each Capsule 1 Each PO BID Tylenol (Acetaminophen) 325 Mg Tablet 325 Mg PO TID Metoprolol Succinate ( Xl ) (Metoprolol Succinate) 25 Mg Tab.er.24h 25 Mg PO DAILY Metformin Hcl 500 Mg Tablet 500 Mg PO BIDWMEALS Lorazepam 0.5 Mg Tablet 0.5 Mg PO PRN TID PRN Levothyroxine Sodium 50 Mcg Tablet 50 Mcg PO DAILYAC Duoneb 0.5-3(2.5) Mg/3 Ml (Albuterol/Ipratropium) 3 Ml Ampul.neb 3 Ml NEB PRN Q6HRS PRN Famotidine 20 Mg Tablet 20 Mg PO HS Donepezil Hcl 10 Mg Tablet 10 Mg PO HS Docusate Sodium 100 Mg Capsule 100 Mg PO BID Depakote Sprinkle (Divalproex Sodium) 125 Mg Cap.sprink 750 Mg PO DAILY Depakote Sprinkle (Divalproex Sodium) 125 Mg Cap.sprink 1,000 Mg PO HS Biofreeze (Menthol) 118 Ml Gel..ml. 118 Ml TP PRN Q24HRS PRN Aspirin 81 Mg Tab.chew 81 Mg PO DAILY I have reviewed the current psychotropics carefully including drug interactions. Risk benefit ratio favors no change other than as noted in my dictated progress note. Diagnosis: Problems: (1) Anxiety disorder (2) Dementia in Alzheimer's disease with delusions (3) Dementia in Alzheimer's disease with depression (4) Dementia, vascular, with delusions (5) Dementia, vascular, with depression (6) Impulse control disorder KAMILA GOMEZ MD Sep 21, 2018 21:54
[2018-09-22] MEDS: LEVOTHYROXINE 50 MCG TABLET PO SCH (05:50)
[2018-09-22 06:31] VITALS: BP 118/72
[2018-09-22] MEDS: metFORMIN 500 MG TABLET PO SCH ×2 (08:00→15:04)
[2018-09-22] MEDS: QUEtiapine 100 MG TABLET. PO SCH ×3 (09:00→20:11)
[2018-09-22] MEDS: ASPIRIN 81 MG TAB.CHEW PO SCH (09:00)
[2018-09-22] MEDS: DOCUSATE SODIUM 100 MG CAPSULE PO SCH ×2 (09:00→20:06)
[2018-09-22] MEDS: CHOLECALCIFEROL (VITAMIN D3) 1,000 UNIT TABLET PO SCH (09:00)
[2018-09-22] MEDS: ACETAMINOPHEN 325 MG TABLET PO SCH ×3 (09:00→20:11)
[2018-09-22] MEDS: DEXTROMETHORPHAN/QUINIDINE 20/10MG CAPSULE. PO SCH ×2 (09:00→20:17)
[2018-09-22] MEDS: OLANZapine 10 MG TABLET PO SCH (09:00)
[2018-09-22] MEDS: METOPROLOL SUCC 24HR ER 25 MG TAB.ER.24H. PO SCH (09:00)
[2018-09-22] MEDS: POLYETHYLENE GLYCOL 3350 17 GM PACKET. PO SCH (09:00)
[2018-09-22] MEDS: SERTRALINE 50 MG TABLET. PO SCH (09:00)
[2018-09-22] MEDS: DIVALPROEX 125 MG CAP.SPRINK PO SCH ×2 (09:00→20:07)
[2018-09-22 16:18] VITALS: BP 95/62
[2018-09-22] MEDS: DONEPEZIL HCL 10 MG TABLET PO SCH (20:06)
[2018-09-22] MEDS: FAMOTIDINE 20 MG TABLET PO SCH (20:11)
[2018-09-22] MEDS: SIMVASTATIN 10 MG TABLET PO SCH (20:11)
--- NOTE | 2018-09-22 22:09 | PN ---
DATE: 09/21/2018 PSYCHIATRIC PROGRESS NOTE This late entry 09/21/2018 covers elements not covered in my initial note. SUBJECTIVE: I met with the patient in the evening. The patient slept 7-1/2 hours previous night. Valproic acid level was 51 on the 09/12/2018. Previous night, he was compliant with treatment and medications were taken whole by him. He put himself to bed, had a good day, but 2 episodes of screaming and mood lability were noted. Slept 7-1/2 hours. REVIEW OF SYSTEMS: Ambulation impaired, in wheelchair. No CV, , pulmonary, eye system symptoms on review. MENTAL STATUS EXAM: Oriented to himself and situation. Speech moderate latency, often responses monosyllabic. Abstraction fair, computation impaired, language function intact, attention span short. Mood and affect somewhat withdrawn. LABORATORY DATA: Reviewed. IMPRESSION: Schizoaffective disorder, bipolar type, mixed. History of autistic spectrum disorder, major neurocognitive disorder, Alzheimer, vascular with delusion, depression. Rest unchanged. PLAN: Continue psychotropics from initial note. May need to adjust Seroquel further as clinically indicated and may consider increasing Zoloft as well. KAMILA GOMEZ MD DR: KSENIA/rocky JOB#: [id number] / [id number]
--- NOTE | 2018-09-22 23:16 | PDOC ---
Exam Note: Og Note: Please also refer to the separate dictated note~for this date of service dictated separately.~Patient seen individually. Discussed the patient with Nursing staff reviewed the chart.~Reviewed interim history and current functioning. Reviewed vital signs,~Labs/ Radiology~and current medications noted below. Continue current treatment with the changes noted in the dictated addendum note Assessment: Vital Signs: Vital Signs Date Time Temp Pulse Resp B/P (MAP) Pulse Ox O2 Delivery O2 Flow Rate FiO2 09/22/18 16:18 98.5 62 16 95/62 (73) 92 09/21/18 16:01 Room Air I&O Intake and Output 09/22/18 07:00 Intake Total 1140 ml Balance 1140 ml Intake Oral 1140 ml # Voids 1 # Bowel Movements 1 Labs: Laboratory Tests Test 09/22/18 07:26 Glucose (Fingerstick) 134 mg/dL (70-99) H Current Medications: Meds: Current Medications Acetaminophen (Tylenol) 650 mg PRN Q6HRS PRN PO PAIN / TEMP; Start 09/13/18 at 18:45 Multi-Ingredient Ointment (Analgesic [place]) 1 johnny PRN QID PRN TP MUSCLE PAIN; Start 09/13/18 at 18:45 Al Hydroxide/Mg Hydroxide (Mylanta Plus Xs) 15 ml PRN AFTMEALHC PRN PO DYSPEPSIA Last administered on 09/21/18at 13:55; Start 09/13/18 at 18:45 Magnesium Hydroxide (Milk Of Magnesia) 2,400 mg PRN QHS PRN PO CONSTIPATION; Start 09/13/18 at 18:45 Acetaminophen (Tylenol) 325 mg TID PO Last administered on 09/22/18at 20:11; Start 09/14/18 at 09:00 Vitamin D (Vitamin D3) 4,000 unit DAILY PO Last administered on 09/22/18at 09:00; Start 09/14/18 at 09:00 Dextromethorphan/ Quinidine (Nuedexta 20-10 Mg Capsule) 1 cap BID PO Last administered on 09/22/18at 20:17; Start 09/13/18 at 22:00 Albuterol/ Ipratropium (Duoneb) 3 ml PRN Q6HRS PRN NEB COUGH; Start 09/13/18 at 21:15 Metoprolol Succinate (Toprol Xl) 25 mg DAILY PO Last administered on 09/22/18 09:00; Start 09/14/18 at 09:00 Simvastatin (Zocor) 10 mg HS PO Last administered on 09/22/18 20:11; Start 09/13/18 at 22:00 Aspirin (Children'S Aspirin) 81 mg DAILY PO Last administered on 09/22/18 09:00; Start 09/14/18 at 08:00 Divalproex Sodium (Depakote Sprinkles) 1,000 mg HS PO Last administered on 09/22/18 20:07; Start 09/13/18 at 22:00 Divalproex Sodium (Depakote Sprinkles) 750 mg DAILY PO Last administered on 09/22/18 09:00; Start 09/14/18 at 09:00 Docusate Sodium (Colace) 100 mg BID PO Last administered on 09/22/18 20:06; Start 09/13/18 at 22:00 Donepezil HCl (Aricept) 10 mg HS PO Last administered on 09/22/18 20:06; Start 09/13/18 at 22:00 Famotidine (Pepcid) 20 mg HS PO Last administered on 09/22/18 20:11; Start 09/13/18 at 22:00 Levothyroxine Sodium (Synthroid) 50 mcg DAILY06 PO Last administered on 09/22/18 05:50; Start 09/14/18 at 06:00 Lorazepam (Ativan) 0.5 mg PRN TID PRN PO ANXIETY / AGITATION; Start 09/13/18 at 21:30 Non-Formulary Medication (Menthol (Biofreeze)) 118 ml PRN Q24HRS PRN TP PAIN; Start 09/13/18 at 21:15; Status UNV Metformin HCl (Glucophage) 500 mg BIDWMEALS PO Last administered on 09/22/18 15:04; Start 09/14/18 at 08:00 Olanzapine (ZyPREXA) 20 mg DAILY PO Last administered on 09/22/18 09:00; Start 09/14/18 at 09:00 Quetiapine Fumarate (SEROquel) 200 mg DAILY PO Last administered on 09/16/18 09:27; Start 09/14/18 at 09:00; Stop 09/16/18 at 11:17; Status DC Quetiapine Fumarate (SEROquel) 300 mg DAILY@1500 PO Last administered on 09/15/18at 15:06; Start 09/14/18 at 15:00; Stop 09/16/18 at 11:17; Status DC Quetiapine Fumarate (SEROquel) 300 mg HS PO Last administered on 09/22/18at 20:11; Start 09/13/18 at 22:30 Quetiapine Fumarate (SEROquel) 100 mg DAILY PO Last administered on 09/22/18at 09:00; Start 09/17/18 at 09:00 Quetiapine Fumarate (SEROquel) 200 mg DAILY@1500 PO Last administered on 09/22/18at 15:05; Start 09/16/18 at 15:00 Sertraline HCl (Zoloft) 50 mg DAILY PO Last administered on 09/20/18at 08:02; Start 09/17/18 at 09:00; Stop 09/20/18 at 19:36; Status DC Hydroxyzine HCl (Atarax) 25 mg PRN Q2HR PRN PO ANXIETY / AGITATION; Start 09/18/18 at 22:30 Polyethylene Glycol (miraLAX) 17 gm DAILY PO Last administered on 09/22/18at 09:00; Start 09/21/18 at 09:00 Sertraline HCl (Zoloft) 75 mg DAILY PO Last administered on 09/22/18at 09:00; Start 09/21/18 at 09:00 Active Scripts Active Reported Seroquel (Quetiapine Fumarate) 300 Mg Tablet 300 Mg PO HS Seroquel (Quetiapine Fumarate) 300 Mg Tablet 300 Mg PO DAILY@1500 Seroquel (Quetiapine Fumarate) 200 Mg Tablet 200 Mg PO DAILY Vitamin D3 (Cholecalciferol (Vitamin D3)) 1,000 Unit Tablet 4,000 Unit PO DAILY Simvastatin 10 Mg Tablet 10 Mg PO HS Olanzapine 20 Mg Tablet 20 Mg PO DAILY Nuedexta 20-10 Mg Capsule (Dextromethorphan Hbr/Quinidine) 1 Each Capsule 1 Each PO BID Tylenol (Acetaminophen) 325 Mg Tablet 325 Mg PO TID Metoprolol Succinate ( Xl ) (Metoprolol Succinate) 25 Mg Tab.er.24h 25 Mg PO DAILY Metformin Hcl 500 Mg Tablet 500 Mg PO BIDWMEALS Lorazepam 0.5 Mg Tablet 0.5 Mg PO PRN TID PRN Levothyroxine Sodium 50 Mcg Tablet 50 Mcg PO DAILYAC Duoneb 0.5-3(2.5) Mg/3 Ml (Albuterol/Ipratropium) 3 Ml Ampul.neb 3 Ml NEB PRN Q6HRS PRN Famotidine 20 Mg Tablet 20 Mg PO HS Donepezil Hcl 10 Mg Tablet 10 Mg PO HS Docusate Sodium 100 Mg Capsule 100 Mg PO BID Depakote Sprinkle (Divalproex Sodium) 125 Mg Cap.sprink 750 Mg PO DAILY Depakote Sprinkle (Divalproex Sodium) 125 Mg Cap.sprink 1,000 Mg PO HS Biofreeze (Menthol) 118 Ml Gel..ml. 118 Ml TP PRN Q24HRS PRN Aspirin 81 Mg Tab.chew 81 Mg PO DAILY I have reviewed the current psychotropics carefully including drug interactions. Risk benefit ratio favors no change other than as noted in my dictated progress note. Diagnosis: Problems: (1) Anxiety disorder (2) Dementia in Alzheimer's disease with delusions (3) Dementia in Alzheimer's disease with depression (4) Dementia, vascular, with delusions (5) Dementia, vascular, with depression (6) Impulse control disorder KAMILA GOMEZ MD September 22, 2018 23:16
[2018-09-23 05:40] VITALS: BP 138/77
[2018-09-23] MEDS: LEVOTHYROXINE 50 MCG TABLET PO SCH (06:02)
[2018-09-23] MEDS: DIVALPROEX 125 MG CAP.SPRINK PO SCH ×2 (08:17→19:33)
[2018-09-23] MEDS: POLYETHYLENE GLYCOL 3350 17 GM PACKET. PO SCH (08:17)
[2018-09-23] MEDS: DOCUSATE SODIUM 100 MG CAPSULE PO SCH ×2 (08:18→19:32)
[2018-09-23] MEDS: OLANZapine 10 MG TABLET PO SCH (08:18)
[2018-09-23] MEDS: METOPROLOL SUCC 24HR ER 25 MG TAB.ER.24H. PO SCH (08:18)
[2018-09-23] MEDS: ASPIRIN 81 MG TAB.CHEW PO SCH (08:18)
[2018-09-23] MEDS: CHOLECALCIFEROL (VITAMIN D3) 1,000 UNIT TABLET PO SCH (08:18)
[2018-09-23] MEDS: SERTRALINE 50 MG TABLET. PO SCH (08:18)
[2018-09-23] MEDS: metFORMIN 500 MG TABLET PO SCH ×2 (08:19→17:15)
[2018-09-23] MEDS: ACETAMINOPHEN 325 MG TABLET PO SCH ×3 (08:19→19:32)
[2018-09-23] MEDS: QUEtiapine 100 MG TABLET. PO SCH ×3 (08:19→19:32)
[2018-09-23] MEDS: DEXTROMETHORPHAN/QUINIDINE 20/10MG CAPSULE. PO SCH ×2 (08:20→19:43)
[2018-09-23] MEDS ORDERED: traZODone 50 MG TABLET. PO PRN (11:30)
[2018-09-23 16:21] VITALS: BP 114/78
[2018-09-23] MEDS: SIMVASTATIN 10 MG TABLET PO SCH (19:31)
[2018-09-23] MEDS: FAMOTIDINE 20 MG TABLET PO SCH (19:32)
[2018-09-23] MEDS: DONEPEZIL HCL 10 MG TABLET PO SCH (19:35)
[2018-09-23] MEDS: traZODone 50 MG TABLET. PO SCH (19:38)
--- NOTE | 2018-09-23 22:43 | PDOC ---
Exam Note: Og Note: Please also refer to the separate dictated note~for this date of service dictated separately.~Patient seen individually. Discussed the patient with Nursing staff reviewed the chart.~Reviewed interim history and current functioning. Reviewed vital signs,~Labs/ Radiology~and current medications noted below. Continue current treatment with the changes noted in the dictated addendum note Assessment: Vital Signs: Vital Signs Date Time Temp Pulse Resp B/P (MAP) Pulse Ox O2 Delivery O2 Flow Rate FiO2 09/23/18 16:21 97.3 64 18 114/78 (90) 92 09/21/18 16:01 Room Air I&O Intake and Output 09/23/18 07:00 Intake Total 1440 ml Balance 1440 ml Intake Oral 1440 ml # Voids 1 Labs: Laboratory Tests Test 09/23/18 07:05 09/23/18 19:06 Glucose (Fingerstick) 89 mg/dL (70-99) 132 mg/dL (70-99) H Current Medications: Meds: Current Medications Acetaminophen (Tylenol) 650 mg PRN Q6HRS PRN PO PAIN / TEMP; Start 09/13/18 at 18:45 Multi-Ingredient Ointment (Analgesic [place]) 1 johnny PRN QID PRN TP MUSCLE PAIN; Start 09/13/18 at 18:45 Al Hydroxide/Mg Hydroxide (Mylanta Plus Xs) 15 ml PRN AFTMEALHC PRN PO DYSPEPSIA Last administered on 09/21/18at 13:55; Start 09/13/18 at 18:45 Magnesium Hydroxide (Milk Of Magnesia) 2,400 mg PRN QHS PRN PO CONSTIPATION; Start 09/13/18 at 18:45 Acetaminophen (Tylenol) 325 mg TID PO Last administered on 09/23/18 19:32; Start 09/14/18 at 09:00 Vitamin D (Vitamin D3) 4,000 unit DAILY PO Last administered on 09/23/18 08:18; Start 09/14/18 at 09:00 Dextromethorphan/ Quinidine (Nuedexta 20-10 Mg Capsule) 1 cap BID PO Last administered on 09/23/18 19:43; Start 09/13/18 at 22:00 Albuterol/ Ipratropium (Duoneb) 3 ml PRN Q6HRS PRN NEB COUGH; Start 09/13/18 at 21:15 Metoprolol Succinate (Toprol Xl) 25 mg DAILY PO Last administered on 09/23/18 08:18; Start 09/14/18 at 09:00 Simvastatin (Zocor) 10 mg HS PO Last administered on 09/23/18 19:31; Start 09/13/18 at 22:00 Aspirin (Children'S Aspirin) 81 mg DAILY PO Last administered on 09/23/18 08:18; Start 09/14/18 at 08:00 Divalproex Sodium (Depakote Sprinkles) 1,000 mg HS PO Last administered on 09/23/18 19:33; Start 09/13/18 at 22:00 Divalproex Sodium (Depakote Sprinkles) 750 mg DAILY PO Last administered on 09/23/18 08:17; Start 09/14/18 at 09:00 Docusate Sodium (Colace) 100 mg BID PO Last administered on 09/23/18 19:32; Start 09/13/18 at 22:00 Donepezil HCl (Aricept) 10 mg HS PO Last administered on 09/23/18 19:35; Start 09/13/18 at 22:00 Famotidine (Pepcid) 20 mg HS PO Last administered on 09/23/18 19:32; Start 09/13/18 at 22:00 Levothyroxine Sodium (Synthroid) 50 mcg DAILY06 PO Last administered on 09/23/18 06:02; Start 09/14/18 at 06:00 Lorazepam (Ativan) 0.5 mg PRN TID PRN PO ANXIETY / AGITATION; Start 09/13/18 at 21:30 Non-Formulary Medication (Menthol (Biofreeze)) 118 ml PRN Q24HRS PRN TP PAIN; Start 09/13/18 at 21:15; Status UNV Metformin HCl (Glucophage) 500 mg BIDWMEALS PO Last administered on 09/23/18 17:15; Start 09/14/18 at 08:00 Olanzapine (ZyPREXA) 20 mg DAILY PO Last administered on 09/23/18 08:18; Start 09/14/18 at 09:00 Quetiapine Fumarate (SEROquel) 200 mg DAILY PO Last administered on 09/16/18 09:27; Start 09/14/18 at 09:00; Stop 09/16/18 at 11:17; Status DC Quetiapine Fumarate (SEROquel) 300 mg DAILY@1500 PO Last administered on 09/15/18at 15:06; Start 09/14/18 at 15:00; Stop 09/16/18 at 11:17; Status DC Quetiapine Fumarate (SEROquel) 300 mg HS PO Last administered on 09/23/18at 19:32; Start 09/13/18 at 22:30 Quetiapine Fumarate (SEROquel) 100 mg DAILY PO Last administered on 09/23/18 08:19; Start 09/17/18 at 09:00 Quetiapine Fumarate (SEROquel) 200 mg DAILY@1500 PO Last administered on 09/23/18 14:15; Start 09/16/18 at 15:00 Sertraline HCl (Zoloft) 50 mg DAILY PO Last administered on 09/20/18at 08:02; Start 09/17/18 at 09:00; Stop 09/20/18 at 19:36; Status DC Hydroxyzine HCl (Atarax) 25 mg PRN Q2HR PRN PO ANXIETY / AGITATION; Start 09/18/18 at 22:30 Polyethylene Glycol (miraLAX) 17 gm DAILY PO Last administered on 09/23/18 08:17; Start 09/21/18 at 09:00 Sertraline HCl (Zoloft) 75 mg DAILY PO Last administered on 09/23/18 08:18; Start 09/21/18 at 09:00 Trazodone HCl (Desyrel) 50 mg QHS PO Last administered on 09/23/18at 19:38; Start 09/23/18 at 21:00 Trazodone HCl (Desyrel) 50 mg PRN QHS PRN PO INSOMNIA; Start 09/23/18 at 11:30 Active Scripts Active Reported Seroquel (Quetiapine Fumarate) 300 Mg Tablet 300 Mg PO HS Seroquel (Quetiapine Fumarate) 300 Mg Tablet 300 Mg PO DAILY@1500 Seroquel (Quetiapine Fumarate) 200 Mg Tablet 200 Mg PO DAILY Vitamin D3 (Cholecalciferol (Vitamin D3)) 1,000 Unit Tablet 4,000 Unit PO DAILY Simvastatin 10 Mg Tablet 10 Mg PO HS Olanzapine 20 Mg Tablet 20 Mg PO DAILY Nuedexta 20-10 Mg Capsule (Dextromethorphan Hbr/Quinidine) 1 Each Capsule 1 Each PO BID Tylenol (Acetaminophen) 325 Mg Tablet 325 Mg PO TID Metoprolol Succinate ( Xl ) (Metoprolol Succinate) 25 Mg Tab.er.24h 25 Mg PO DAILY Metformin Hcl 500 Mg Tablet 500 Mg PO BIDWMEALS Lorazepam 0.5 Mg Tablet 0.5 Mg PO PRN TID PRN Levothyroxine Sodium 50 Mcg Tablet 50 Mcg PO DAILYAC Duoneb 0.5-3(2.5) Mg/3 Ml (Albuterol/Ipratropium) 3 Ml Ampul.neb 3 Ml NEB PRN Q6HRS PRN Famotidine 20 Mg Tablet 20 Mg PO HS Donepezil Hcl 10 Mg Tablet 10 Mg PO HS Docusate Sodium 100 Mg Capsule 100 Mg PO BID Depakote Sprinkle (Divalproex Sodium) 125 Mg Cap.sprink 750 Mg PO DAILY Depakote Sprinkle (Divalproex Sodium) 125 Mg Cap.sprink 1,000 Mg PO HS Biofreeze (Menthol) 118 Ml Gel..ml. 118 Ml TP PRN Q24HRS PRN Aspirin 81 Mg Tab.chew 81 Mg PO DAILY I have reviewed the current psychotropics carefully including drug interactions. Risk benefit ratio favors no change other than as noted in my dictated progress note. Diagnosis: Problems: (1) Anxiety disorder (2) Dementia in Alzheimer's disease with delusions (3) Dementia in Alzheimer's disease with depression (4) Dementia, vascular, with delusions (5) Dementia, vascular, with depression (6) Impulse control disorder KAMILA GOMEZ MD September 23, 2018 22:43
[2018-09-24] MEDS: LEVOTHYROXINE 50 MCG TABLET PO SCH (05:04)
[2018-09-24 05:36] VITALS: BP 158/91
[2018-09-24] MEDS: METOPROLOL SUCC 24HR ER 25 MG TAB.ER.24H. PO SCH (08:06)
[2018-09-24] MEDS: CHOLECALCIFEROL (VITAMIN D3) 1,000 UNIT TABLET PO SCH (08:07)
[2018-09-24] MEDS: DIVALPROEX 125 MG CAP.SPRINK PO SCH ×2 (08:07→19:29)
[2018-09-24] MEDS: SERTRALINE 50 MG TABLET. PO SCH (08:07)
[2018-09-24] MEDS: DEXTROMETHORPHAN/QUINIDINE 20/10MG CAPSULE. PO SCH ×2 (08:07→19:30)
[2018-09-24] MEDS: metFORMIN 500 MG TABLET PO SCH ×2 (08:08→17:18)
[2018-09-24] MEDS: ASPIRIN 81 MG TAB.CHEW PO SCH (08:08)
[2018-09-24] MEDS: ACETAMINOPHEN 325 MG TABLET PO SCH ×3 (08:08→19:32)
[2018-09-24] MEDS: QUEtiapine 100 MG TABLET. PO SCH ×3 (08:08→19:27)
[2018-09-24] MEDS: POLYETHYLENE GLYCOL 3350 17 GM PACKET. PO SCH (08:08)
[2018-09-24] MEDS: DOCUSATE SODIUM 100 MG CAPSULE PO SCH ×2 (08:08→19:28)
[2018-09-24] MEDS: OLANZapine 10 MG TABLET PO SCH (08:08)
[2018-09-24] MEDS: hydrOXYzine HCL 25 MG TABLET PO PRN (14:45)
[2018-09-24] MEDS: MAG HYDROX/AL HYDROX/SIMETH 30 ML ORAL.SUSP PO PRN (14:45)
[2018-09-24 15:49] VITALS: BP 113/74
[2018-09-24] MEDS: SIMVASTATIN 10 MG TABLET PO SCH (19:27)
[2018-09-24] MEDS: DONEPEZIL HCL 10 MG TABLET PO SCH (19:27)
[2018-09-24] MEDS: FAMOTIDINE 20 MG TABLET PO SCH (19:28)
[2018-09-24] MEDS: traZODone 50 MG TABLET. PO SCH (19:28)
--- NOTE | 2018-09-24 20:29 | PN ---
DATE: 09/22/2018 PSYCHIATRIC PROGRESS NOTE This late entry 09/22/2018 covers elements not covered in my initial note. SUBJECTIVE: I met with the patient in the evening. The patient slept 6-1/4 hours previous night. He has been doing better per nursing report. He remains somewhat obsessive regarding medications and what time he needs it, but he has not been aggressive. REVIEW OF SYSTEMS: Ambulation impaired, in wheelchair. No CV, , pulmonary, eye, ENT system symptoms on review. MENTAL STATUS EXAM: Oriented to himself and situation. Speech moderate latency, often responses monosyllabic. Abstraction fair, computation impaired, language function intact, attention span short. Mood and affect is withdrawn. LABORATORY DATA: Reviewed. IMPRESSION: Unchanged from initial note. PLAN: No change from initial note. MAN Samina GOMEZ MD DR: KSENIA/rocky JOB#: [id number] / [id number]
--- NOTE | 2018-09-24 22:08 | PN ---
DATE: 09/23/2018 PSYCHIATRIC PROGRESS NOTE This late entry 09/23/2018 covers elements not covered in my initial note. SUBJECTIVE: I met with the patient in the evening and staffed at a treatment team meeting with the entire team in the morning. The patient slept 7 hours previous night. At 4:00 in the morning, he was yelling. At the treatment team meeting, lengthy conference, Evans from the public church administrator's office attended together with Nash, the church administrator at [facility] attending. Reviewed the patient's history, progress, diagnosis, current psychotropics at length. Appetite 100%, takes meds whole. REVIEW OF SYSTEMS: Ambulation impaired, in wheelchair. No CV, , pulmonary, eye system symptoms on review. Reliability poor. Even at the [facility], he frequently wakes up in the morning at 4:00 yelling. MENTAL STATUS EXAM: Oriented to himself and situation. Speech is low in rate and rhythm, low in volume. Abstraction fair, computation impaired, language function intact, attention span short. Mood and affect somewhat anxious, labile, paranoid, but less so than before. LABORATORY DATA: Reviewed. IMPRESSION: Schizoaffective disorder, bipolar type, mixed; autistic spectrum disorder; anxiety disorder, unspecified; impulse control disorder, unspecified. On 09/13/2018, valproic acid level was 51, therapeutic. PLAN: Start trazodone 50 mg at bedtime p.r.n. insomnia. Continue rest psychotropics unchanged. 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 KAMILA GOMEZ MD DR: KSENIA/rocky JOB#: [id number] / [id number]
--- NOTE | 2018-09-24 22:44 | PDOC ---
Exam Note: Og Note: Please also refer to the separate dictated note~for this date of service dictated separately.~Patient seen individually. Discussed the patient with Nursing staff reviewed the chart.~Reviewed interim history and current functioning. Reviewed vital signs,~Labs/ Radiology~and current medications noted below. Continue current treatment with the changes noted in the dictated addendum note Assessment: Vital Signs: Vital Signs Date Time Temp Pulse Resp B/P (MAP) Pulse Ox O2 Delivery O2 Flow Rate FiO2 09/24/18 15:49 98.7 72 18 113/74 (87) 98 09/21/18 16:01 Room Air I&O Intake and Output 09/24/18 07:00 Intake Total 1320 ml Balance 1320 ml Intake Oral 1320 ml Labs: Laboratory Tests Test 09/24/18 07:04 Glucose (Fingerstick) 113 mg/dL (70-99) H Current Medications: Meds: Current Medications Acetaminophen (Tylenol) 650 mg PRN Q6HRS PRN PO PAIN / TEMP; Start 09/13/18 at 18:45 Multi-Ingredient Ointment (Analgesic [place]) 1 johnny PRN QID PRN TP MUSCLE PAIN; Start 09/13/18 at 18:45 Al Hydroxide/Mg Hydroxide (Mylanta Plus Xs) 15 ml PRN AFTMEALHC PRN PO DYSPEPSIA Last administered on 09/24/18at 14:45; Start 09/13/18 at 18:45 Magnesium Hydroxide (Milk Of Magnesia) 2,400 mg PRN QHS PRN PO CONSTIPATION; Start 09/13/18 at 18:45 Acetaminophen (Tylenol) 325 mg TID PO Last administered on 09/24/18at 19:32; Start 09/14/18 at 09:00 Vitamin D (Vitamin D3) 4,000 unit DAILY PO Last administered on 09/24/18at 08:07; Start 09/14/18 at 09:00 Dextromethorphan/ Quinidine (Nuedexta 20-10 Mg Capsule) 1 cap BID PO Last administered on 09/24/18at 19:30; Start 09/13/18 at 22:00 Albuterol/ Ipratropium (Duoneb) 3 ml PRN Q6HRS PRN NEB COUGH; Start 09/13/18 at 21:15 Metoprolol Succinate (Toprol Xl) 25 mg DAILY PO Last administered on 09/24/18 08:06; Start 09/14/18 at 09:00 Simvastatin (Zocor) 10 mg HS PO Last administered on 09/24/18 19:27; Start 09/13/18 at 22:00 Aspirin (Children'S Aspirin) 81 mg DAILY PO Last administered on 09/24/18 08:08; Start 09/14/18 at 08:00 Divalproex Sodium (Depakote Sprinkles) 1,000 mg HS PO Last administered on 09/24/18 19:29; Start 09/13/18 at 22:00 Divalproex Sodium (Depakote Sprinkles) 750 mg DAILY PO Last administered on 09/24/18 08:07; Start 09/14/18 at 09:00 Docusate Sodium (Colace) 100 mg BID PO Last administered on 09/24/18 19:28; Start 09/13/18 at 22:00 Donepezil HCl (Aricept) 10 mg HS PO Last administered on 09/24/18 19:27; Start 09/13/18 at 22:00 Famotidine (Pepcid) 20 mg HS PO Last administered on 09/24/18 19:28; Start 09/13/18 at 22:00 Levothyroxine Sodium (Synthroid) 50 mcg DAILY06 PO Last administered on 09/24/18 05:04; Start 09/14/18 at 06:00 Lorazepam (Ativan) 0.5 mg PRN TID PRN PO ANXIETY / AGITATION; Start 09/13/18 at 21:30 Non-Formulary Medication (Menthol (Biofreeze)) 118 ml PRN Q24HRS PRN TP PAIN; Start 09/13/18 at 21:15; Status UNV Metformin HCl (Glucophage) 500 mg BIDWMEALS PO Last administered on 09/24/18 17:18; Start 09/14/18 at 08:00 Olanzapine (ZyPREXA) 20 mg DAILY PO Last administered on 09/24/18 08:08; Start 09/14/18 at 09:00 Quetiapine Fumarate (SEROquel) 200 mg DAILY PO Last administered on 09/16/18 09:27; Start 09/14/18 at 09:00; Stop 09/16/18 at 11:17; Status DC Quetiapine Fumarate (SEROquel) 300 mg DAILY@1500 PO Last administered on 09/15/18 15:06; Start 09/14/18 at 15:00; Stop 09/16/18 at 11:17; Status DC Quetiapine Fumarate (SEROquel) 300 mg HS PO Last administered on 09/24/18 19:27; Start 09/13/18 at 22:30 Quetiapine Fumarate (SEROquel) 100 mg DAILY PO Last administered on 09/24/18 08:08; Start 09/17/18 at 09:00 Quetiapine Fumarate (SEROquel) 200 mg DAILY@1500 PO Last administered on 09/24/18 14:04; Start 09/16/18 at 15:00 Sertraline HCl (Zoloft) 50 mg DAILY PO Last administered on 09/20/18 08:02; Start 09/17/18 at 09:00; Stop 09/20/18 at 19:36; Status DC Hydroxyzine HCl (Atarax) 25 mg PRN Q2HR PRN PO ANXIETY / AGITATION Last administered on 09/24/18 14:45; Start 09/18/18 at 22:30 Polyethylene Glycol (miraLAX) 17 gm DAILY PO Last administered on 09/24/18 08:08; Start 09/21/18 at 09:00 Sertraline HCl (Zoloft) 75 mg DAILY PO Last administered on 09/24/18 08:07; Start 09/21/18 at 09:00; Stop 09/24/18 at 18:22; Status DC Trazodone HCl (Desyrel) 50 mg QHS PO Last administered on 09/24/18 19:28; Start 09/23/18 at 21:00 Trazodone HCl (Desyrel) 50 mg PRN QHS PRN PO INSOMNIA; Start 09/23/18 at 11:30 Sertraline HCl (Zoloft) 100 mg DAILY PO ; Start 09/25/18 at 09:00 Active Scripts Active Reported Seroquel (Quetiapine Fumarate) 300 Mg Tablet 300 Mg PO HS Seroquel (Quetiapine Fumarate) 300 Mg Tablet 300 Mg PO DAILY@1500 Seroquel (Quetiapine Fumarate) 200 Mg Tablet 200 Mg PO DAILY Vitamin D3 (Cholecalciferol (Vitamin D3)) 1,000 Unit Tablet 4,000 Unit PO DAILY Simvastatin 10 Mg Tablet 10 Mg PO HS Olanzapine 20 Mg Tablet 20 Mg PO DAILY Nuedexta 20-10 Mg Capsule (Dextromethorphan Hbr/Quinidine) 1 Each Capsule 1 Each PO BID Tylenol (Acetaminophen) 325 Mg Tablet 325 Mg PO TID Metoprolol Succinate ( Xl ) (Metoprolol Succinate) 25 Mg Tab.er.24h 25 Mg PO DAILY Metformin Hcl 500 Mg Tablet 500 Mg PO BIDWMEALS Lorazepam 0.5 Mg Tablet 0.5 Mg PO PRN TID PRN Levothyroxine Sodium 50 Mcg Tablet 50 Mcg PO DAILYAC Duoneb 0.5-3(2.5) Mg/3 Ml (Albuterol/Ipratropium) 3 Ml Ampul.neb 3 Ml NEB PRN Q6HRS PRN Famotidine 20 Mg Tablet 20 Mg PO HS Donepezil Hcl 10 Mg Tablet 10 Mg PO HS Docusate Sodium 100 Mg Capsule 100 Mg PO BID Depakote Sprinkle (Divalproex Sodium) 125 Mg Cap.sprink 750 Mg PO DAILY Depakote Sprinkle (Divalproex Sodium) 125 Mg Cap.sprink 1,000 Mg PO HS Biofreeze (Menthol) 118 Ml Gel..ml. 118 Ml TP PRN Q24HRS PRN Aspirin 81 Mg Tab.chew 81 Mg PO DAILY I have reviewed the current psychotropics carefully including drug interactions. Risk benefit ratio favors no change other than as noted in my dictated progress note. Diagnosis: Problems: (1) Anxiety disorder (2) Dementia in Alzheimer's disease with delusions (3) Dementia in Alzheimer's disease with depression (4) Dementia, vascular, with delusions (5) Dementia, vascular, with depression (6) Impulse control disorder KAMILA GOMEZ MD September 24, 2018 22:44
[2018-09-25] MEDS: LEVOTHYROXINE 50 MCG TABLET PO SCH (05:05)
[2018-09-25 06:08] VITALS: BP 104/52
[2018-09-25 07:33] LABS: BASO # 0.1 x10^3/uL (0.0-0.2); BASO % 1 % (0-3); EOS # 0.4 x10^3/uL (0.0-0.7); EOS % 3 % (0-3); HEMATOCRIT 35.7 % (39.0-53.0); HEMOGLOBIN 11.4 g/dL (13.0-17.5); LYMPH # 2.8 x10^3/uL (1.0-4.8); LYMPH % 24 % (24-48); MEAN CORPUSCULAR HEMOGLOBIN 25 pg (25-35); MEAN CORPUSCULAR HGB CONC 32 g/dL (31-37); MEAN CORPUSCULAR VOLUME 79 fL (79-100); MONO % 8 % (0-9); NEUT # 7.5 x10^3uL (1.8-7.7); NEUT % 64 % (31-73); PLATELET COUNT 274 x10^3/uL (140-400); RED BLOOD COUNT 4.53 x10^6/uL (4.30-5.70); RED CELL DISTRIBUTION WIDTH 17.4 % (11.5-14.5); WHITE BLOOD COUNT 11.8 x10^3/uL (4.0-11.0)
[2018-09-25 07:54] LABS: ALBUMIN 2.6 g/dL (3.4-5.0); ALBUMIN/GLOBULIN RATIO 0.6 (1.0-1.7); CALCIUM 8.8 mg/dL (8.5-10.1); CREATININE 1.1 mg/dL (0.7-1.3); GFR 65.6; POTASSIUM 4.6 mmol/L (3.5-5.1); TOTAL BILIRUBIN 0.1 mg/dL (0.2-1.0); TOTAL PROTEIN 6.7 g/dL (6.4-8.2)
[2018-09-25 08:16] LABS: % BANDS 5 % (0-9); % BASOS 0 % (0-3); % EOS 1 % (0-5); % LYMPHS 26 % (24-48); % MONOS 6 % (0-10); % SEGS 62 % (35-66); ANISOCYTOSIS SLIGHT; HYPOCHROMIA SLIGHT; PLT ESTIMATE ADEQUATE (ADEQUATE)
[2018-09-25] MEDS: metFORMIN 500 MG TABLET PO SCH ×2 (08:25→16:31)
[2018-09-25] MEDS: DIVALPROEX 125 MG CAP.SPRINK PO SCH ×2 (08:25→20:00)
[2018-09-25] MEDS: ACETAMINOPHEN 325 MG TABLET PO SCH ×3 (08:25→20:00)
[2018-09-25] MEDS: POLYETHYLENE GLYCOL 3350 17 GM PACKET. PO SCH (08:25)
[2018-09-25] MEDS: OLANZapine 10 MG TABLET PO SCH (08:25)
[2018-09-25] MEDS: CHOLECALCIFEROL (VITAMIN D3) 1,000 UNIT TABLET PO SCH (08:26)
[2018-09-25] MEDS: ASPIRIN 81 MG TAB.CHEW PO SCH (08:26)
[2018-09-25] MEDS: QUEtiapine 100 MG TABLET. PO SCH ×3 (08:26→20:01)
[2018-09-25] MEDS: DOCUSATE SODIUM 100 MG CAPSULE PO SCH ×2 (08:26→20:00)
[2018-09-25] MEDS: SERTRALINE 100 MG TABLET. PO SCH (08:27)
[2018-09-25] MEDS: METOPROLOL SUCC 24HR ER 25 MG TAB.ER.24H. PO SCH (08:30)
[2018-09-25] MEDS: DEXTROMETHORPHAN/QUINIDINE 20/10MG CAPSULE. PO SCH ×2 (12:44→20:01)
[2018-09-25 16:09] VITALS: BP 113/71
[2018-09-25] MEDS: DONEPEZIL HCL 10 MG TABLET PO SCH (19:59)
[2018-09-25] MEDS: traZODone 50 MG TABLET. PO SCH (20:00)
[2018-09-25] MEDS: FAMOTIDINE 20 MG TABLET PO SCH (20:00)
[2018-09-25] MEDS: SIMVASTATIN 10 MG TABLET PO SCH (20:01)
--- NOTE | 2018-09-25 23:09 | PDOC ---
Exam Note: Og Note: Please also refer to the separate dictated note~for this date of service dictated separately.~Patient seen individually. Discussed the patient with Nursing staff reviewed the chart.~Reviewed interim history and current functioning. Reviewed vital signs,~Labs/ Radiology~and current medications noted below. Continue current treatment with the changes noted in the dictated addendum note Assessment: Vital Signs: Vital Signs Date Time Temp Pulse Resp B/P (MAP) Pulse Ox O2 Delivery O2 Flow Rate FiO2 09/25/18 16:09 98.1 70 16 113/71 (85) 97 09/25/18 06:08 Room Air I&O Intake and Output 09/25/18 06:59 Intake Total 1625 ml Balance 1625 ml Intake Oral 1625 ml Labs: Laboratory Tests Test 09/25/18 06:48 09/25/18 07:13 White Blood Count 11.8 x10^3/uL (4.0-11.0) H Red Blood Count 4.53 x10^6/uL (4.30-5.70) Hemoglobin 11.4 g/dL (13.0-17.5) L Hematocrit 35.7 % (39.0-53.0) L Mean Corpuscular Volume 79 fL (79-100) Mean Corpuscular Hemoglobin 25 pg (25-35) Mean Corpuscular Hemoglobin Concent 32 g/dL (31-37) Red Cell Distribution Width 17.4 % (11.5-14.5) H Platelet Count 274 x10^3/uL (140-400) Neutrophils (%) (Auto) 64 % (31-73) Lymphocytes (%) (Auto) 24 % (24-48) Monocytes (%) (Auto) 8 % (0-9) Eosinophils (%) (Auto) 3 % (0-3) Basophils (%) (Auto) 1 % (0-3) Neutrophils # (Auto) 7.5 x10^3uL (1.8-7.7) Lymphocytes # (Auto) 2.8 x10^3/uL (1.0-4.8) Monocytes # (Auto) 1.0 x10^3/uL (0.0-1.1) Eosinophils # (Auto) 0.4 x10^3/uL (0.0-0.7) Basophils # (Auto) 0.1 x10^3/uL (0.0-0.2) Segmented Neutrophils % 62 % (35-66) Band Neutrophils % 5 % (0-9) Lymphocytes % 26 % (24-48) Monocytes % 6 % (0-10) Eosinophils % 1 % (0-5) Basophils % 0 % (0-3) Platelet Estimate Adequate (ADEQUATE) Hypochromasia Slight Anisocytosis Slight Sodium Level 138 mmol/L (136-145) Potassium Level 4.6 mmol/L (3.5-5.1) Chloride Level 101 mmol/L (98-107) Carbon Dioxide Level 28 mmol/L (21-32) Anion Gap 9 (6-14) Blood Urea Nitrogen 18 mg/dL (8-26) Creatinine 1.1 mg/dL (0.7-1.3) Estimated GFR (Cockcroft-Gault) 65.6 BUN/Creatinine Ratio 16 (6-20) Glucose Level 86 mg/dL (70-99) Calcium Level 8.8 mg/dL (8.5-10.1) Total Bilirubin 0.1 mg/dL (0.2-1.0) L Aspartate Amino Transferase (AST) 12 U/L (15-37) L Alanine Aminotransferase (ALT) 11 U/L (16-63) L Alkaline Phosphatase 67 U/L (46-116) Total Protein 6.7 g/dL (6.4-8.2) Albumin 2.6 g/dL (3.4-5.0) L Albumin/Globulin Ratio 0.6 (1.0-1.7) L Glucose (Fingerstick) 95 mg/dL (70-99) Current Medications: Meds: Current Medications Acetaminophen (Tylenol) 650 mg PRN Q6HRS PRN PO PAIN / TEMP Last administered on 09/25/18at 04:12; Start 09/13/18 at 18:45 Multi-Ingredient Ointment (Analgesic [place]) 1 johnny PRN QID PRN TP MUSCLE PAIN; Start 09/13/18 at 18:45 Al Hydroxide/Mg Hydroxide (Mylanta Plus Xs) 15 ml PRN AFTMEALHC PRN PO DYSPEPSIA Last administered on 09/24/18at 14:45; Start 09/13/18 at 18:45 Magnesium Hydroxide (Milk Of Magnesia) 2,400 mg PRN QHS PRN PO CONSTIPATION; Start 09/13/18 at 18:45 Acetaminophen (Tylenol) 325 mg TID PO Last administered on 09/25/18 20:00; Start 09/14/18 at 09:00 Vitamin D (Vitamin D3) 4,000 unit DAILY PO Last administered on 09/25/18 08:26; Start 09/14/18 at 09:00 Dextromethorphan/ Quinidine (Nuedexta 20-10 Mg Capsule) 1 cap BID PO Last administered on 09/25/18 20:01; Start 09/13/18 at 22:00 Albuterol/ Ipratropium (Duoneb) 3 ml PRN Q6HRS PRN NEB COUGH; Start 09/13/18 at 21:15 Metoprolol Succinate (Toprol Xl) 25 mg DAILY PO Last administered on 09/24/18 08:06; Start 09/14/18 at 09:00 Simvastatin (Zocor) 10 mg HS PO Last administered on 09/25/18 20:01; Start 09/13/18 at 22:00 Aspirin (Children'S Aspirin) 81 mg DAILY PO Last administered on 09/25/18 08:26; Start 09/14/18 at 08:00 Divalproex Sodium (Depakote Sprinkles) 1,000 mg HS PO Last administered on 09/25/18 20:00; Start 09/13/18 at 22:00 Divalproex Sodium (Depakote Sprinkles) 750 mg DAILY PO Last administered on 09/25/18 08:25; Start 09/14/18 at 09:00 Docusate Sodium (Colace) 100 mg BID PO Last administered on 09/25/18 20:00; Start 09/13/18 at 22:00 Donepezil HCl (Aricept) 10 mg HS PO Last administered on 09/25/18 19:59; Start 09/13/18 at 22:00 Famotidine (Pepcid) 20 mg HS PO Last administered on 09/25/18 20:00; Start 09/13/18 at 22:00 Levothyroxine Sodium (Synthroid) 50 mcg DAILY06 PO Last administered on 09/25/18 05:05; Start 09/14/18 at 06:00 Lorazepam (Ativan) 0.5 mg PRN TID PRN PO ANXIETY / AGITATION; Start 09/13/18 at 21:30 Non-Formulary Medication (Menthol (Biofreeze)) 118 ml PRN Q24HRS PRN TP PAIN; Start 09/13/18 at 21:15; Status UNV Metformin HCl (Glucophage) 500 mg BIDWMEALS PO Last administered on 09/25/18 16:31; Start 09/14/18 at 08:00 Olanzapine (ZyPREXA) 20 mg DAILY PO Last administered on 09/25/18 08:25; Start 09/14/18 at 09:00 Quetiapine Fumarate (SEROquel) 200 mg DAILY PO Last administered on 09/16/18 09:27; Start 09/14/18 at 09:00; Stop 09/16/18 at 11:17; Status DC Quetiapine Fumarate (SEROquel) 300 mg DAILY@1500 PO Last administered on 09/15/18 15:06; Start 09/14/18 at 15:00; Stop 09/16/18 at 11:17; Status DC Quetiapine Fumarate (SEROquel) 300 mg HS PO Last administered on 09/25/18 20:01; Start 09/13/18 at 22:30 Quetiapine Fumarate (SEROquel) 100 mg DAILY PO Last administered on 09/25/18 08:26; Start 09/17/18 at 09:00 Quetiapine Fumarate (SEROquel) 200 mg DAILY@1500 PO Last administered on 09/25/18 12:44; Start 09/16/18 at 15:00 Sertraline HCl (Zoloft) 50 mg DAILY PO Last administered on 09/20/18 08:02; Start 09/17/18 at 09:00; Stop 09/20/18 at 19:36; Status DC Hydroxyzine HCl (Atarax) 25 mg PRN Q2HR PRN PO ANXIETY / AGITATION Last administered on 09/24/18 14:45; Start 09/18/18 at 22:30 Polyethylene Glycol (miraLAX) 17 gm DAILY PO Last administered on 09/25/18 08:25; Start 09/21/18 at 09:00 Sertraline HCl (Zoloft) 75 mg DAILY PO Last administered on 5/3/19at 08:07; Start 09/21/18 at 09:00; Stop 09/24/18 at 18:22; Status DC Trazodone HCl (Desyrel) 50 mg QHS PO Last administered on 09/25/18at 20:00; Start 09/23/18 at 21:00 Trazodone HCl (Desyrel) 50 mg PRN QHS PRN PO INSOMNIA; Start 09/23/18 at 11:30 Sertraline HCl (Zoloft) 100 mg DAILY PO Last administered on 09/25/18at 08:27; Start 09/25/18 at 09:00 Active Scripts Active Reported Seroquel (Quetiapine Fumarate) 300 Mg Tablet 300 Mg PO HS Seroquel (Quetiapine Fumarate) 300 Mg Tablet 300 Mg PO DAILY@1500 Seroquel (Quetiapine Fumarate) 200 Mg Tablet 200 Mg PO DAILY Vitamin D3 (Cholecalciferol (Vitamin D3)) 1,000 Unit Tablet 4,000 Unit PO DAILY Simvastatin 10 Mg Tablet 10 Mg PO HS Olanzapine 20 Mg Tablet 20 Mg PO DAILY Nuedexta 20-10 Mg Capsule (Dextromethorphan Hbr/Quinidine) 1 Each Capsule 1 Each PO BID Tylenol (Acetaminophen) 325 Mg Tablet 325 Mg PO TID Metoprolol Succinate ( Xl ) (Metoprolol Succinate) 25 Mg Tab.er.24h 25 Mg PO DAILY Metformin Hcl 500 Mg Tablet 500 Mg PO BIDWMEALS Lorazepam 0.5 Mg Tablet 0.5 Mg PO PRN TID PRN Levothyroxine Sodium 50 Mcg Tablet 50 Mcg PO DAILYAC Duoneb 0.5-3(2.5) Mg/3 Ml (Albuterol/Ipratropium) 3 Ml Ampul.neb 3 Ml NEB PRN Q6HRS PRN Famotidine 20 Mg Tablet 20 Mg PO HS Donepezil Hcl 10 Mg Tablet 10 Mg PO HS Docusate Sodium 100 Mg Capsule 100 Mg PO BID Depakote Sprinkle (Divalproex Sodium) 125 Mg Cap.sprink 750 Mg PO DAILY Depakote Sprinkle (Divalproex Sodium) 125 Mg Cap.sprink 1,000 Mg PO HS Biofreeze (Menthol) 118 Ml Gel..ml. 118 Ml TP PRN Q24HRS PRN Aspirin 81 Mg Tab.chew 81 Mg PO DAILY I have reviewed the current psychotropics carefully including drug interactions. Risk benefit ratio favors no change other than as noted in my dictated progress note. Diagnosis: Problems: (1) Anxiety disorder (2) Dementia in Alzheimer's disease with delusions (3) Dementia in Alzheimer's disease with depression (4) Dementia, vascular, with delusions (5) Dementia, vascular, with depression (6) Impulse control disorder KAMILA GOMEZ MD September 25, 2018 23:09
[2018-09-26] MEDS: LEVOTHYROXINE 50 MCG TABLET PO SCH (05:50)
[2018-09-26 05:59] VITALS: BP 118/82
[2018-09-26] MEDS: POLYETHYLENE GLYCOL 3350 17 GM PACKET. PO SCH (08:09)
[2018-09-26] MEDS: ASPIRIN 81 MG TAB.CHEW PO SCH (08:10)
[2018-09-26] MEDS: DIVALPROEX 125 MG CAP.SPRINK PO SCH ×2 (08:10→19:51)
[2018-09-26] MEDS: CHOLECALCIFEROL (VITAMIN D3) 1,000 UNIT TABLET PO SCH (08:10)
[2018-09-26] MEDS: OLANZapine 10 MG TABLET PO SCH (08:10)
[2018-09-26] MEDS: SERTRALINE 100 MG TABLET. PO SCH (08:10)
[2018-09-26] MEDS: METOPROLOL SUCC 24HR ER 25 MG TAB.ER.24H. PO SCH (08:10)
[2018-09-26] MEDS: metFORMIN 500 MG TABLET PO SCH ×2 (08:10→17:59)
[2018-09-26] MEDS: DOCUSATE SODIUM 100 MG CAPSULE PO SCH ×2 (08:10→19:52)
[2018-09-26] MEDS: ACETAMINOPHEN 325 MG TABLET PO SCH ×3 (08:10→19:51)
[2018-09-26] MEDS: QUEtiapine 100 MG TABLET. PO SCH ×3 (08:11→19:51)
[2018-09-26] MEDS: DEXTROMETHORPHAN/QUINIDINE 20/10MG CAPSULE. PO SCH ×2 (08:11→19:53)
[2018-09-26] MEDS: LORazepam 0.5 MG TABLET PO PRN (13:31)
[2018-09-26 15:37] VITALS: BP 92/66
[2018-09-26] MEDS: SIMVASTATIN 10 MG TABLET PO SCH (19:51)
[2018-09-26] MEDS: traZODone 50 MG TABLET. PO SCH (19:52)
[2018-09-26] MEDS: FAMOTIDINE 20 MG TABLET PO SCH (19:52)
[2018-09-26] MEDS: DONEPEZIL HCL 10 MG TABLET PO SCH (19:52)
--- NOTE | 2018-09-26 22:34 | PDOC ---
Exam Note: Og Note: Please also refer to the separate dictated note~for this date of service dictated separately.~Patient seen individually. Discussed the patient with Nursing staff reviewed the chart.~Reviewed interim history and current functioning. Reviewed vital signs,~Labs/ Radiology~and current medications noted below. Continue current treatment with the changes noted in the dictated addendum note Assessment: Vital Signs: Vital Signs Date Time Temp Pulse Resp B/P (MAP) Pulse Ox O2 Delivery O2 Flow Rate FiO2 09/26/18 15:37 98.0 82 20 92/66 (75) 97 Room Air I&O Intake and Output 09/26/18 07:00 Intake Total 1325 ml Balance 1325 ml Intake Oral 1325 ml # Bowel Movements 1 Labs: Laboratory Tests Test 09/26/18 07:18 Glucose (Fingerstick) 97 mg/dL (70-99) Current Medications: Meds: Current Medications Acetaminophen (Tylenol) 650 mg PRN Q6HRS PRN PO PAIN / TEMP Last administered on 09/25/18at 04:12; Start 09/13/18 at 18:45 Multi-Ingredient Ointment (Analgesic [place]) 1 johnny PRN QID PRN TP MUSCLE PAIN; Start 09/13/18 at 18:45 Al Hydroxide/Mg Hydroxide (Mylanta Plus Xs) 15 ml PRN AFTMEALHC PRN PO DYSPEPSIA Last administered on 09/24/18at 14:45; Start 09/13/18 at 18:45 Magnesium Hydroxide (Milk Of Magnesia) 2,400 mg PRN QHS PRN PO CONSTIPATION; Start 09/13/18 at 18:45 Acetaminophen (Tylenol) 325 mg TID PO Last administered on 09/26/18 19:51; Start 09/14/18 at 09:00 Vitamin D (Vitamin D3) 4,000 unit DAILY PO Last administered on 09/26/18at 08:10; Start 09/14/18 at 09:00 Dextromethorphan/ Quinidine (Nuedexta 20-10 Mg Capsule) 1 cap BID PO Last administered on 09/26/18at 19:53; Start 09/13/18 at 22:00 Albuterol/ Ipratropium (Duoneb) 3 ml PRN Q6HRS PRN NEB COUGH; Start 09/13/18 at 21:15 Metoprolol Succinate (Toprol Xl) 25 mg DAILY PO Last administered on 09/26/18 08:10; Start 09/14/18 at 09:00 Simvastatin (Zocor) 10 mg HS PO Last administered on 09/26/18 19:51; Start 09/13/18 at 22:00 Aspirin (Children'S Aspirin) 81 mg DAILY PO Last administered on 09/26/18 08:10; Start 09/14/18 at 08:00 Divalproex Sodium (Depakote Sprinkles) 1,000 mg HS PO Last administered on 09/26/18 19:51; Start 09/13/18 at 22:00 Divalproex Sodium (Depakote Sprinkles) 750 mg DAILY PO Last administered on 09/26/18 08:10; Start 09/14/18 at 09:00 Docusate Sodium (Colace) 100 mg BID PO Last administered on 09/26/18 19:52; Start 09/13/18 at 22:00 Donepezil HCl (Aricept) 10 mg HS PO Last administered on 09/26/18 19:52; Start 09/13/18 at 22:00 Famotidine (Pepcid) 20 mg HS PO Last administered on 09/26/18 19:52; Start 09/13/18 at 22:00 Levothyroxine Sodium (Synthroid) 50 mcg DAILY06 PO Last administered on 09/26/18 05:50; Start 09/14/18 at 06:00 Lorazepam (Ativan) 0.5 mg PRN TID PRN PO ANXIETY / AGITATION Last administered on 09/26/18 13:31; Start 09/13/18 at 21:30 Non-Formulary Medication (Menthol (Biofreeze)) 118 ml PRN Q24HRS PRN TP PAIN; Start 09/13/18 at 21:15; Status UNV Metformin HCl (Glucophage) 500 mg BIDWMEALS PO Last administered on 09/26/18 17:59; Start 09/14/18 at 08:00 Olanzapine (ZyPREXA) 20 mg DAILY PO Last administered on 09/26/18 08:10; Start 09/14/18 at 09:00 Quetiapine Fumarate (SEROquel) 200 mg DAILY PO Last administered on 4/25/19at 09:27; Start 09/14/18 at 09:00; Stop 09/16/18 at 11:17; Status DC Quetiapine Fumarate (SEROquel) 300 mg DAILY@1500 PO Last administered on 09/15/18 15:06; Start 09/14/18 at 15:00; Stop 09/16/18 at 11:17; Status DC Quetiapine Fumarate (SEROquel) 300 mg HS PO Last administered on 09/26/18 19:51; Start 09/13/18 at 22:30 Quetiapine Fumarate (SEROquel) 100 mg DAILY PO Last administered on 09/26/18 08:11; Start 09/17/18 at 09:00 Quetiapine Fumarate (SEROquel) 200 mg DAILY@1500 PO Last administered on 09/26/18 13:31; Start 09/16/18 at 15:00 Sertraline HCl (Zoloft) 50 mg DAILY PO Last administered on 09/20/18 08:02; Start 09/17/18 at 09:00; Stop 09/20/18 at 19:36; Status DC Hydroxyzine HCl (Atarax) 25 mg PRN Q2HR PRN PO ANXIETY / AGITATION Last administered on 09/24/18 14:45; Start 09/18/18 at 22:30 Polyethylene Glycol (miraLAX) 17 gm DAILY PO Last administered on 09/26/18 08:09; Start 09/21/18 at 09:00 Sertraline HCl (Zoloft) 75 mg DAILY PO Last administered on 09/24/18 08:07; Start 09/21/18 at 09:00; Stop 09/24/18 at 18:22; Status DC Trazodone HCl (Desyrel) 50 mg QHS PO Last administered on 09/26/18 19:52; Start 09/23/18 at 21:00 Trazodone HCl (Desyrel) 50 mg PRN QHS PRN PO INSOMNIA; Start 09/23/18 at 11:30 Sertraline HCl (Zoloft) 100 mg DAILY PO Last administered on 09/26/18 08:10; S tart 09/25/18 at 09:00; Stop 09/29/18 at 21:00 Sertraline HCl (Zoloft) 125 mg DAILY PO ; Start 09/30/18 at 09:00 Active Scripts Active Reported Seroquel (Quetiapine Fumarate) 300 Mg Tablet 300 Mg PO HS Seroquel (Quetiapine Fumarate) 300 Mg Tablet 300 Mg PO DAILY@1500 Seroquel (Quetiapine Fumarate) 200 Mg Tablet 200 Mg PO DAILY Vitamin D3 (Cholecalciferol (Vitamin D3)) 1,000 Unit Tablet 4,000 Unit PO DAILY Simvastatin 10 Mg Tablet 10 Mg PO HS Olanzapine 20 Mg Tablet 20 Mg PO DAILY Nuedexta 20-10 Mg Capsule (Dextromethorphan Hbr/Quinidine) 1 Each Capsule 1 Each PO BID Tylenol (Acetaminophen) 325 Mg Tablet 325 Mg PO TID Metoprolol Succinate ( Xl ) (Metoprolol Succinate) 25 Mg Tab.er.24h 25 Mg PO DAILY Metformin Hcl 500 Mg Tablet 500 Mg PO BIDWMEALS Lorazepam 0.5 Mg Tablet 0.5 Mg PO PRN TID PRN Levothyroxine Sodium 50 Mcg Tablet 50 Mcg PO DAILYAC Duoneb 0.5-3(2.5) Mg/3 Ml (Albuterol/Ipratropium) 3 Ml Ampul.neb 3 Ml NEB PRN Q6HRS PRN Famotidine 20 Mg Tablet 20 Mg PO HS Donepezil Hcl 10 Mg Tablet 10 Mg PO HS Docusate Sodium 100 Mg Capsule 100 Mg PO BID Depakote Sprinkle (Divalproex Sodium) 125 Mg Cap.sprink 750 Mg PO DAILY Depakote Sprinkle (Divalproex Sodium) 125 Mg Cap.sprink 1,000 Mg PO HS Biofreeze (Menthol) 118 Ml Gel..ml. 118 Ml TP PRN Q24HRS PRN Aspirin 81 Mg Tab.chew 81 Mg PO DAILY I have reviewed the current psychotropics carefully including drug interactions. Risk benefit ratio favors no change other than as noted in my dictated progress note. Diagnosis: Problems: (1) Anxiety disorder (2) Dementia in Alzheimer's disease with delusions (3) Dementia in Alzheimer's disease with depression (4) Dementia, vascular, with delusions (5) Dementia, vascular, with depression (6) Impulse control disorder KAMILA GOMEZ MD September 26, 2018 22:34
[2018-09-27] MEDS: LEVOTHYROXINE 50 MCG TABLET PO SCH (01:53)
[2018-09-27 05:53] VITALS: BP 119/73
[2018-09-27] MEDS: QUEtiapine 100 MG TABLET. PO SCH ×3 (08:15→19:18)
[2018-09-27] MEDS: DOCUSATE SODIUM 100 MG CAPSULE PO SCH ×2 (08:15→19:19)
[2018-09-27] MEDS: POLYETHYLENE GLYCOL 3350 17 GM PACKET. PO SCH (08:15)
[2018-09-27] MEDS: ASPIRIN 81 MG TAB.CHEW PO SCH (08:15)
[2018-09-27] MEDS: metFORMIN 500 MG TABLET PO SCH ×2 (08:16→16:05)
[2018-09-27] MEDS: DIVALPROEX 125 MG CAP.SPRINK PO SCH ×2 (08:16→19:18)
[2018-09-27] MEDS: OLANZapine 10 MG TABLET PO SCH (08:16)
[2018-09-27] MEDS: CHOLECALCIFEROL (VITAMIN D3) 1,000 UNIT TABLET PO SCH (08:16)
[2018-09-27] MEDS: ACETAMINOPHEN 325 MG TABLET PO SCH ×3 (08:16→19:18)
[2018-09-27] MEDS: METOPROLOL SUCC 24HR ER 25 MG TAB.ER.24H. PO SCH (08:17)
[2018-09-27] MEDS: SERTRALINE 100 MG TABLET. PO SCH (08:18)
[2018-09-27] MEDS: DEXTROMETHORPHAN/QUINIDINE 20/10MG CAPSULE. PO SCH ×2 (08:23→19:21)
[2018-09-27 15:15] VITALS: BP 104/72
--- NOTE | 2018-09-27 19:12 | PN ---
DATE: 09/24/2018 PSYCHIATRIC PROGRESS NOTE This late entry 09/24/2018 covers elements not covered in my initial note. SUBJECTIVE: I met with the patient in the evening. The patient slept 7-1/4 hours previous night. At night, he was calling out, anxious, restless, labile. He spent some time in the day room, extremely obsessive regarding his medications, but compliant with it. REVIEW OF SYSTEMS: Ambulation impaired, in wheelchair. No CV, , pulmonary, eye, ENT system symptoms on review. Reliability poor. Social skills are poor. MENTAL STATUS EXAM: Oriented to himself and situation. Speech is moderate latency, low in rate and rhythm, low in volume. Abstraction fair, computation impaired, language function intact, attention span short. Mood and affect, withdrawn. LABORATORY DATA: Reviewed. IMPRESSION: Unchanged from initial note. Schizoaffective disorder, bipolar type, mixed with psychotic features. Rest unchanged. PLAN: No change from initial note. MAN Samina GOMEZ MD DR: KSENIA/rocky JOB#: [id number] / [id number]
[2018-09-27] MEDS: SIMVASTATIN 10 MG TABLET PO SCH (19:18)
[2018-09-27] MEDS: DONEPEZIL HCL 10 MG TABLET PO SCH (19:19)
[2018-09-27] MEDS: FAMOTIDINE 20 MG TABLET PO SCH (19:19)
[2018-09-27] MEDS: traZODone 50 MG TABLET. PO SCH (19:19)
--- NOTE | 2018-09-27 19:57 | PN ---
DATE: 09/25/2018 PSYCHIATRIC PROGRESS NOTE This late entry 09/25/2018 covers elements not covered in my initial note. SUBJECTIVE: I met with the patient in the evening. The patient slept 7-1/4 hours previous night. Previous night, he had some labored breathing. Dr. Brock is addressing this. None of this evident on 09/25/2018. REVIEW OF SYSTEMS: Ambulation impaired, in wheelchair. No CV, , pulmonary, eye system symptoms on review. MENTAL STATUS EXAM: Oriented to himself and situation. Speech has some latency, coherent. Abstraction fair, computation impaired, language function intact. Attention span short. Social skills are poor, consistent with his diagnosis. LABORATORY DATA: Reviewed. IMPRESSION: Unchanged from initial note. PLAN: No change from initial note. MAN Samina GOMEZ MD DR: KSENIA/rocky JOB#: [id number] / [id number]
--- NOTE | 2018-09-27 19:59 | PN ---
DATE: 09/26/2018 PSYCHIATRIC PROGRESS NOTE This late entry 09/26/2018 covers elements not covered in my initial note. SUBJECTIVE: I met with the patient in the evening. The patient slept 7-1/2 hours previous night. He has been somewhat impatient, needy per nursing report, received Ativan earlier in the day. Valproic acid level therapeutic at 51. REVIEW OF SYSTEMS: Ambulation impaired. No CV, , pulmonary, eye, ENT system symptoms on review. MENTAL STATUS EXAM: Oriented to himself and situation. Speech has some latency, coherent. Abstraction fair, computation impaired, language function intact, attention span short. Mood and affect, somewhat anxious, at times labile, but improved. LABORATORY DATA: Reviewed. IMPRESSION: Unchanged from initial note. PLAN: Increase Zoloft to 125 mg a day after he has been on 100 for 5 days. Rest unchanged per initial note. MAN Samina GOMEZ MD DR: KSENIA/rocky JOB#: [id number] / [id number]
--- NOTE | 2018-09-27 21:43 | PDOC ---
Exam Note: Og Note: Please also refer to the separate dictated note~for this date of service dictated separately.~Patient seen individually. Discussed the patient with Nursing staff reviewed the chart.~Reviewed interim history and current functioning. Reviewed vital signs,~Labs/ Radiology~and current medications noted below. Continue current treatment with the changes noted in the dictated addendum note Assessment: Vital Signs: Vital Signs Date Time Temp Pulse Resp B/P (MAP) Pulse Ox O2 Delivery O2 Flow Rate FiO2 09/27/18 15:15 98.1 68 16 104/72 (83) 95 09/26/18 15:37 Room Air I&O Intake and Output 09/27/18 06:59 Intake Total 1560 ml Balance 1560 ml Intake Oral 1560 ml Labs: Laboratory Tests Test 09/27/18 07:35 Glucose (Fingerstick) 89 mg/dL (70-99) Current Medications: Meds: Current Medications Acetaminophen (Tylenol) 650 mg PRN Q6HRS PRN PO PAIN / TEMP Last administered on 09/25/18 04:12; Start 09/13/18 at 18:45 Multi-Ingredient Ointment (Analgesic [place]) 1 johnny PRN QID PRN TP MUSCLE PAIN; Start 09/13/18 at 18:45 Al Hydroxide/Mg Hydroxide (Mylanta Plus Xs) 15 ml PRN AFTMEALHC PRN PO DYSPEPSIA Last administered on 09/24/18 14:45; Start 09/13/18 at 18:45 Magnesium Hydroxide (Milk Of Magnesia) 2,400 mg PRN QHS PRN PO CONSTIPATION; Start 09/13/18 at 18:45 Acetaminophen (Tylenol) 325 mg TID PO Last administered on 09/27/18 19:18; Start 09/14/18 at 09:00 Vitamin D (Vitamin D3) 4,000 unit DAILY PO Last administered on 09/27/18 08:16; Start 09/14/18 at 09:00 Dextromethorphan/ Quinidine (Nuedexta 20-10 Mg Capsule) 1 cap BID PO Last administered on 09/27/18 19:21; Start 09/13/18 at 22:00 Albuterol/ Ipratropium (Duoneb) 3 ml PRN Q6HRS PRN NEB COUGH; Start 09/13/18 at 21:15 Metoprolol Succinate (Toprol Xl) 25 mg DAILY PO Last administered on 09/27/18 08:17; Start 09/14/18 at 09:00 Simvastatin (Zocor) 10 mg HS PO Last administered on 09/27/18 19:18; Start 09/13/18 at 22:00 Aspirin (Children'S Aspirin) 81 mg DAILY PO Last administered on 09/27/18 08:15; Start 09/14/18 at 08:00 Divalproex Sodium (Depakote Sprinkles) 1,000 mg HS PO Last administered on 09/27/18 19:18; Start 09/13/18 at 22:00 Divalproex Sodium (Depakote Sprinkles) 750 mg DAILY PO Last administered on 09/27/18 08:16; Start 09/14/18 at 09:00 Docusate Sodium (Colace) 100 mg BID PO Last administered on 09/27/18 19:19; Start 09/13/18 at 22:00 Donepezil HCl (Aricept) 10 mg HS PO Last administered on 09/27/18 19:19; Start 09/13/18 at 22:00 Famotidine (Pepcid) 20 mg HS PO Last administered on 09/27/18 19:19; Start 09/13/18 at 22:00 Levothyroxine Sodium (Synthroid) 50 mcg DAILY06 PO Last administered on 09/27/18 01:53; Start 09/14/18 at 06:00 Lorazepam (Ativan) 0.5 mg PRN TID PRN PO ANXIETY / AGITATION Last administered on 09/26/18 13:31; Start 09/13/18 at 21:30 Non-Formulary Medication (Menthol (Biofreeze)) 118 ml PRN Q24HRS PRN TP PAIN; Start 09/13/18 at 21:15; Status UNV Metformin HCl (Glucophage) 500 mg BIDWMEALS PO Last administered on 09/27/18 16:05; Start 09/14/18 at 08:00 Olanzapine (ZyPREXA) 20 mg DAILY PO Last administered on 09/27/18 08:16; Start 09/14/18 at 09:00 Quetiapine Fumarate (SEROquel) 200 mg DAILY PO Last administered on 09/16/18 09:27; Start 09/14/18 at 09:00; Stop 09/16/18 at 11:17; Status DC Quetiapine Fumarate (SEROquel) 300 mg DAILY@1500 PO Last administered on 09/15/18 15:06; Start 09/14/18 at 15:00; Stop 09/16/18 at 11:17; Status DC Quetiapine Fumarate (SEROquel) 300 mg HS PO Last administered on 09/27/18 19:18; Start 09/13/18 at 22:30 Quetiapine Fumarate (SEROquel) 100 mg DAILY PO Last administered on 09/27/18 08:15; Start 09/17/18 at 09:00 Quetiapine Fumarate (SEROquel) 200 mg DAILY@1500 PO Last administered on 09/27/18 14:25; Start 09/16/18 at 15:00 Sertraline HCl (Zoloft) 50 mg DAILY PO Last administered on 09/20/18 08:02; Start 09/17/18 at 09:00; Stop 09/20/18 at 19:36; Status DC Hydroxyzine HCl (Atarax) 25 mg PRN Q2HR PRN PO ANXIETY / AGITATION Last administered on 09/24/18 14:45; Start 09/18/18 at 22:30 Polyethylene Glycol (miraLAX) 17 gm DAILY PO Last administered on 09/27/18 08:15; Start 09/21/18 at 09:00 Sertraline HCl (Zoloft) 75 mg DAILY PO Last administered on 09/24/18 08:07; Start 09/21/18 at 09:00; Stop 09/24/18 at 18:22; Status DC Trazodone HCl (Desyrel) 50 mg QHS PO Last administered on 09/27/18 19:19; Start 09/23/18 at 21:00 Trazodone HCl (Desyrel) 50 mg PRN QHS PRN PO INSOMNIA; Start 09/23/18 at 11:30 Sertraline HCl (Zoloft) 100 mg DAILY PO Last administered on 09/27/18 08:18; Start 09/25/18 at 09:00; Stop 09/29/18 at 21:00 Sertraline HCl (Zoloft) 125 mg DAILY PO ; Start 09/30/18 at 09:00 Active Scripts Active Reported Seroquel (Quetiapine Fumarate) 300 Mg Tablet 300 Mg PO HS Seroquel (Quetiapine Fumarate) 300 Mg Tablet 300 Mg PO DAILY@1500 Seroquel (Quetiapine Fumarate) 200 Mg Tablet 200 Mg PO DAILY Vitamin D3 (Cholecalciferol (Vitamin D3)) 1,000 Unit Tablet 4,000 Unit PO DAILY Simvastatin 10 Mg Tablet 10 Mg PO HS Olanzapine 20 Mg Tablet 20 Mg PO DAILY Nuedexta 20-10 Mg Capsule (Dextromethorphan Hbr/Quinidine) 1 Each Capsule 1 Each PO BID Tylenol (Acetaminophen) 325 Mg Tablet 325 Mg PO TID Metoprolol Succinate ( Xl ) (Metoprolol Succinate) 25 Mg Tab.er.24h 25 Mg PO DAILY Metformin Hcl 500 Mg Tablet 500 Mg PO BIDWMEALS Lorazepam 0.5 Mg Tablet 0.5 Mg PO PRN TID PRN Levothyroxine Sodium 50 Mcg Tablet 50 Mcg PO DAILYAC Duoneb 0.5-3(2.5) Mg/3 Ml (Albuterol/Ipratropium) 3 Ml Ampul.neb 3 Ml NEB PRN Q6HRS PRN Famotidine 20 Mg Tablet 20 Mg PO HS Donepezil Hcl 10 Mg Tablet 10 Mg PO HS Docusate Sodium 100 Mg Capsule 100 Mg PO BID Depakote Sprinkle (Divalproex Sodium) 125 Mg Cap.sprink 750 Mg PO DAILY Depakote Sprinkle (Divalproex Sodium) 125 Mg Cap.sprink 1,000 Mg PO HS Biofreeze (Menthol) 118 Ml Gel..ml. 118 Ml TP PRN Q24HRS PRN Aspirin 81 Mg Tab.chew 81 Mg PO DAILY I have reviewed the current psychotropics carefully including drug interactions. Risk benefit ratio favors no change other than as noted in my dictated progress note. Diagnosis: Problems: (1) Anxiety disorder (2) Dementia in Alzheimer's disease with delusions (3) Dementia in Alzheimer's disease with depression (4) Dementia, vascular, with delusions (5) Dementia, vascular, with depression (6) Impulse control disorder KAMILA GOMEZ MD September 27, 2018 21:43
[2018-09-28] MEDS: LEVOTHYROXINE 50 MCG TABLET PO SCH (05:01)
[2018-09-28 06:03] VITALS: BP 118/78
[2018-09-28] MEDS: CHOLECALCIFEROL (VITAMIN D3) 1,000 UNIT TABLET PO SCH (07:59)
[2018-09-28] MEDS: DEXTROMETHORPHAN/QUINIDINE 20/10MG CAPSULE. PO SCH ×2 (07:59→19:41)
[2018-09-28] MEDS: DIVALPROEX 125 MG CAP.SPRINK PO SCH ×2 (07:59→19:40)
[2018-09-28] MEDS: ASPIRIN 81 MG TAB.CHEW PO SCH (08:00)
[2018-09-28] MEDS: DOCUSATE SODIUM 100 MG CAPSULE PO SCH ×2 (08:00→19:41)
[2018-09-28] MEDS: ACETAMINOPHEN 325 MG TABLET PO SCH ×3 (08:00→19:41)
[2018-09-28] MEDS: SERTRALINE 100 MG TABLET. PO SCH (08:00)
[2018-09-28] MEDS: OLANZapine 10 MG TABLET PO SCH (08:00)
[2018-09-28] MEDS: metFORMIN 500 MG TABLET PO SCH ×2 (08:00→17:32)
[2018-09-28] MEDS: POLYETHYLENE GLYCOL 3350 17 GM PACKET. PO SCH (08:00)
[2018-09-28] MEDS: QUEtiapine 100 MG TABLET. PO SCH ×3 (08:01→19:40)
[2018-09-28] MEDS: METOPROLOL SUCC 24HR ER 25 MG TAB.ER.24H. PO SCH (08:01)
[2018-09-28] MEDS: hydrOXYzine HCL 25 MG TABLET PO PRN (13:00)
[2018-09-28 16:08] VITALS: BP 92/58
[2018-09-28] MEDS: LORazepam 0.5 MG TABLET PO PRN (16:19)
--- NOTE | 2018-09-28 18:27 | PN ---
DATE: 09/27/2018 PSYCHIATRIC PROGRESS NOTE This late entry 09/27/2018 covers elements not covered in my initial note. SUBJECTIVE: I met with the patient in the evening. The patient slept 7 hours previous night. He has been less anxious, irritable. Social skills are poor. REVIEW OF SYSTEMS: Ambulation impaired, in wheelchair. No CV, , pulmonary, eye system symptoms on review. MENTAL STATUS EXAM: Oriented to himself and situation. Speech is low in rate and rhythm, low in volume, coherent, abstraction fair, computation impaired, language function intact, attention span short. Mood and affect somewhat withdrawn, but generally improved. LABORATORY DATA: Valproic acid level therapeutic at 51. IMPRESSION: Unchanged from initial note. PLAN: No change from initial note. MAN Samina GOMEZ MD DR: KSENIA/rocky JOB#: [id number] / [id number]
[2018-09-28] MEDS: traZODone 50 MG TABLET. PO SCH (19:40)
[2018-09-28] MEDS: DONEPEZIL HCL 10 MG TABLET PO SCH (19:40)
[2018-09-28] MEDS: SIMVASTATIN 10 MG TABLET PO SCH (19:41)
[2018-09-28] MEDS: FAMOTIDINE 20 MG TABLET PO SCH (19:41)
--- NOTE | 2018-09-28 22:27 | PDOC ---
Exam Note: Og Note: Please also refer to the separate dictated note~for this date of service dictated separately.~Patient seen individually. Discussed the patient with Nursing staff reviewed the chart.~Reviewed interim history and current functioning. Reviewed vital signs,~Labs/ Radiology~and current medications noted below. Continue current treatment with the changes noted in the dictated addendum note Assessment: Vital Signs: Vital Signs Date Time Temp Pulse Resp B/P (MAP) Pulse Ox O2 Delivery O2 Flow Rate FiO2 09/28/18 16:08 98.4 73 20 92/58 (69) 93 09/26/18 15:37 Room Air I&O Intake and Output 09/28/18 07:00 Intake Total 1440 ml Balance 1440 ml Intake Oral 1440 ml # Bowel Movements 1 Labs: Laboratory Tests Test 09/28/18 07:08 Glucose (Fingerstick) 113 mg/dL (70-99) H Current Medications: Meds: Current Medications Acetaminophen (Tylenol) 650 mg PRN Q6HRS PRN PO PAIN / TEMP Last administered on 09/25/18 04:12; Start 09/13/18 at 18:45 Multi-Ingredient Ointment (Analgesic [place]) 1 johnny PRN QID PRN TP MUSCLE PAIN; Start 09/13/18 at 18:45 Al Hydroxide/Mg Hydroxide (Mylanta Plus Xs) 15 ml PRN AFTMEALHC PRN PO DYSPEPSIA Last administered on 09/24/18 14:45; Start 09/13/18 at 18:45 Magnesium Hydroxide (Milk Of Magnesia) 2,400 mg PRN QHS PRN PO CONSTIPATION; Start 09/13/18 at 18:45 Acetaminophen (Tylenol) 325 mg TID PO Last administered on 09/28/18 19:41; Start 09/14/18 at 09:00 Vitamin D (Vitamin D3) 4,000 unit DAILY PO Last administered on 09/28/18 07:59; Start 09/14/18 at 09:00 Dextromethorphan/ Quinidine (Nuedexta 20-10 Mg Capsule) 1 cap BID PO Last administered on 09/28/18 19:41; Start 09/13/18 at 22:00 Albuterol/ Ipratropium (Duoneb) 3 ml PRN Q6HRS PRN NEB COUGH; Start 09/13/18 at 21:15 Metoprolol Succinate (Toprol Xl) 25 mg DAILY PO Last administered on 09/28/18 08:01; Start 09/14/18 at 09:00 Simvastatin (Zocor) 10 mg HS PO Last administered on 09/28/18 19:41; Start 09/13/18 at 22:00 Aspirin (Children'S Aspirin) 81 mg DAILY PO Last administered on 09/28/18 08:00; Start 09/14/18 at 08:00 Divalproex Sodium (Depakote Sprinkles) 1,000 mg HS PO Last administered on 09/28/18 19:40; Start 09/13/18 at 22:00 Divalproex Sodium (Depakote Sprinkles) 750 mg DAILY PO Last administered on 09/28/18 07:59; Start 09/14/18 at 09:00 Docusate Sodium (Colace) 100 mg BID PO Last administered on 09/28/18 19:41; Start 09/13/18 at 22:00 Donepezil HCl (Aricept) 10 mg HS PO Last administered on 09/28/18 19:40; Start 09/13/18 at 22:00 Famotidine (Pepcid) 20 mg HS PO Last administered on 09/28/18 19:41; Start 09/13/18 at 22:00 Levothyroxine Sodium (Synthroid) 50 mcg DAILY06 PO Last administered on 09/28/18 05:01; Start 09/14/18 at 06:00 Lorazepam (Ativan) 0.5 mg PRN TID PRN PO ANXIETY / AGITATION Last administered on 09/28/18 16:19; Start 09/13/18 at 21:30 Non-Formulary Medication (Menthol (Biofreeze)) 118 ml PRN Q24HRS PRN TP PAIN; Start 09/13/18 at 21:15; Status UNV Metformin HCl (Glucophage) 500 mg BIDWMEALS PO Last administered on 09/28/18 17:32; Start 09/14/18 at 08:00 Olanzapine (ZyPREXA) 20 mg DAILY PO Last administered on 09/28/18 08:00; Start 09/14/18 at 09:00 Quetiapine Fumarate (SEROquel) 200 mg DAILY PO Last administered on 09/16/18 09:27; Start 09/14/18 at 09:00; Stop 09/16/18 at 11:17; Status DC Quetiapine Fumarate (SEROquel) 300 mg DAILY@1500 PO Last administered on 09/15/18 15:06; Start 09/14/18 at 15:00; Stop 09/16/18 at 11:17; Status DC Quetiapine Fumarate (SEROquel) 300 mg HS PO Last administered on 09/28/18 19:40; Start 09/13/18 at 22:30 Quetiapine Fumarate (SEROquel) 100 mg DAILY PO Last administered on 09/28/18 08:01; Start 09/17/18 at 09:00 Quetiapine Fumarate (SEROquel) 200 mg DAILY@1500 PO Last administered on 09/28/18 14:43; Start 09/16/18 at 15:00 Sertraline HCl (Zoloft) 50 mg DAILY PO Last administered on 09/20/18at 08:02; Start 09/17/18 at 09:00; Stop 09/20/18 at 19:36; Status DC Hydroxyzine HCl (Atarax) 25 mg PRN Q2HR PRN PO ANXIETY / AGITATION Last administered on 09/28/18 13:00; Start 09/18/18 at 22:30 Polyethylene Glycol (miraLAX) 17 gm DAILY PO Last administered on 09/28/18 08:00; Start 09/21/18 at 09:00 Sertraline HCl (Zoloft) 75 mg DAILY PO Last administered on 09/24/18 08:07; Start 09/21/18 at 09:00; Stop 09/24/18 at 18:22; Status DC Trazodone HCl (Desyrel) 50 mg QHS PO Last administered on 09/28/18 19:40; Start 09/23/18 at 21:00 Trazodone HCl (Desyrel) 50 mg PRN QHS PRN PO INSOMNIA; Start 09/23/18 at 11:30 Sertraline HCl (Zoloft) 100 mg DAILY PO Last administered on 09/28/18 08:00; Start 09/25/18 at 09:00; Stop 09/29/18 at 21:00 Sertraline HCl (Zoloft) 125 mg DAILY PO ; Start 09/30/18 at 09:00 Active Scripts Active Reported Seroquel (Quetiapine Fumarate) 300 Mg Tablet 300 Mg PO HS Seroquel (Quetiapine Fumarate) 300 Mg Tablet 300 Mg PO DAILY@1500 Seroquel (Quetiapine Fumarate) 200 Mg Tablet 200 Mg PO DAILY Vitamin D3 (Cholecalciferol (Vitamin D3)) 1,000 Unit Tablet 4,000 Unit PO DAILY Simvastatin 10 Mg Tablet 10 Mg PO HS Olanzapine 20 Mg Tablet 20 Mg PO DAILY Nuedexta 20-10 Mg Capsule (Dextromethorphan Hbr/Quinidine) 1 Each Capsule 1 Each PO BID Tylenol (Acetaminophen) 325 Mg Tablet 325 Mg PO TID Metoprolol Succinate ( Xl ) (Metoprolol Succinate) 25 Mg Tab.er.24h 25 Mg PO DAILY Metformin Hcl 500 Mg Tablet 500 Mg PO BIDWMEALS Lorazepam 0.5 Mg Tablet 0.5 Mg PO PRN TID PRN Levothyroxine Sodium 50 Mcg Tablet 50 Mcg PO DAILYAC Duoneb 0.5-3(2.5) Mg/3 Ml (Albuterol/Ipratropium) 3 Ml Ampul.neb 3 Ml NEB PRN Q6HRS PRN Famotidine 20 Mg Tablet 20 Mg PO HS Donepezil Hcl 10 Mg Tablet 10 Mg PO HS Docusate Sodium 100 Mg Capsule 100 Mg PO BID Depakote Sprinkle (Divalproex Sodium) 125 Mg Cap.sprink 750 Mg PO DAILY Depakote Sprinkle (Divalproex Sodium) 125 Mg Cap.sprink 1,000 Mg PO HS Biofreeze (Menthol) 118 Ml Gel..ml. 118 Ml TP PRN Q24HRS PRN Aspirin 81 Mg Tab.chew 81 Mg PO DAILY I have reviewed the current psychotropics carefully including drug interactions. Risk benefit ratio favors no change other than as noted in my dictated progress note. Diagnosis: Problems: (1) Anxiety disorder (2) Dementia in Alzheimer's disease with delusions (3) Dementia in Alzheimer's disease with depression (4) Dementia, vascular, with delusions (5) Dementia, vascular, with depression (6) Impulse control disorder KAMILA GOMEZ MD September 28, 2018 22:27
[2018-09-29 05:39] VITALS: BP 107/70
[2018-09-29] MEDS: LEVOTHYROXINE 50 MCG TABLET PO SCH (05:58)
[2018-09-29] MEDS: DIVALPROEX 125 MG CAP.SPRINK PO SCH ×2 (07:42→19:44)
[2018-09-29] MEDS: QUEtiapine 100 MG TABLET. PO SCH ×3 (07:43→19:44)
[2018-09-29] MEDS: metFORMIN 500 MG TABLET PO SCH ×2 (07:43→16:03)
[2018-09-29] MEDS: DOCUSATE SODIUM 100 MG CAPSULE PO SCH ×2 (07:43→19:44)
[2018-09-29] MEDS: CHOLECALCIFEROL (VITAMIN D3) 1,000 UNIT TABLET PO SCH (07:43)
[2018-09-29] MEDS: SERTRALINE 100 MG TABLET. PO SCH (07:43)
[2018-09-29] MEDS: ASPIRIN 81 MG TAB.CHEW PO SCH (07:43)
[2018-09-29] MEDS: OLANZapine 10 MG TABLET PO SCH (07:43)
[2018-09-29] MEDS: ACETAMINOPHEN 325 MG TABLET PO SCH ×3 (07:43→19:44)
[2018-09-29] MEDS: DEXTROMETHORPHAN/QUINIDINE 20/10MG CAPSULE. PO SCH ×2 (07:44→19:46)
[2018-09-29] MEDS: METOPROLOL SUCC 24HR ER 25 MG TAB.ER.24H. PO SCH (07:44)
[2018-09-29] MEDS: POLYETHYLENE GLYCOL 3350 17 GM PACKET. PO SCH (07:44)
[2018-09-29] MEDS: LORazepam 0.5 MG TABLET PO PRN (13:11)
[2018-09-29 16:20] VITALS: BP 116/75
--- NOTE | 2018-09-29 19:04 | PN ---
DATE: 09/28/2018 PSYCHIATRIC PROGRESS NOTE This late entry 09/28/2018 covers elements not covered in my initial note. SUBJECTIVE: I met with the patient in the evening of 09/28/2018. Per nursing report, the patient slept 6-1/2 hours previous night. He has been somewhat demanding, attention seeking on 09/28/2018, more so than previous days. He wheeled himself down the hallway with a loud cough, was quite dramatic per nursing report. Nursing staff gave him a drink and then an Ativan and he was much less anxious after that. He has been more demanding per nursing report. REVIEW OF SYSTEMS: Ambulation impaired, in wheelchair. No CV, , pulmonary, eye system symptoms on review. MENTAL STATUS EXAM: Oriented to himself and situation. Speech has some latency, coherent. Abstraction fair, computation impaired, language function intact, attention span short. Mood and affect remain somewhat anxious, labile at times, but improved. LABORATORY DATA: Reviewed. IMPRESSION: Schizoaffective disorder, bipolar type, mixed; anxiety disorder, unspecified; impulse control disorder, unspecified; mild cognitive impairment versus major neurocognitive disorder, Alzheimer, vascular with delusion, depression. Rest unchanged. PLAN: No change from initial note. Maintain Ativan p.r.n. Depakote is therapeutic. KAMILA GOMEZ MD DR: KSENIA/rocky JOB#: [id number] / [id number]
[2018-09-29] MEDS: SIMVASTATIN 10 MG TABLET PO SCH (19:44)
[2018-09-29] MEDS: FAMOTIDINE 20 MG TABLET PO SCH (19:44)
[2018-09-29] MEDS: DONEPEZIL HCL 10 MG TABLET PO SCH (19:44)
[2018-09-29] MEDS: traZODone 50 MG TABLET. PO SCH (19:45)
--- NOTE | 2018-09-29 22:31 | PDOC ---
Exam Note: Go Note: Please also refer to the separate dictated note~for this date of service dictated separately.~Patient seen individually. Discussed the patient with Nursing staff reviewed the chart.~Reviewed interim history and current functioning. Reviewed vital signs,~Labs/ Radiology~and current medications noted below. Continue current treatment with the changes noted in the dictated addendum note Assessment: Vital Signs: Vital Signs Date Time Temp Pulse Resp B/P (MAP) Pulse Ox O2 Delivery O2 Flow Rate FiO2 09/29/18 16:20 97.6 62 18 116/75 (89) 92 09/26/18 15:37 Room Air I&O Intake and Output 09/29/18 06:59 Intake Total 1840 ml Balance 1840 ml Intake Oral 1840 ml # Bowel Movements 1 Labs: Laboratory Tests Test 09/29/18 07:10 Glucose (Fingerstick) 103 mg/dL (70-99) H Current Medications: Meds: Current Medications Acetaminophen (Tylenol) 650 mg PRN Q6HRS PRN PO PAIN / TEMP Last administered on 09/25/18 04:12; Start 09/13/18 at 18:45 Multi-Ingredient Ointment (Analgesic [place]) 1 johnny PRN QID PRN TP MUSCLE PAIN; Start 09/13/18 at 18:45 Al Hydroxide/Mg Hydroxide (Mylanta Plus Xs) 15 ml PRN AFTMEALHC PRN PO DYSPEPSIA Last administered on 09/24/18 14:45; Start 09/13/18 at 18:45 Magnesium Hydroxide (Milk Of Magnesia) 2,400 mg PRN QHS PRN PO CONSTIPATION; Start 09/13/18 at 18:45 Acetaminophen (Tylenol) 325 mg TID PO Last administered on 09/29/18 19:44; Start 09/14/18 at 09:00 Vitamin D (Vitamin D3) 4,000 unit DAILY PO Last administered on 09/29/18 07:43; Start 09/14/18 at 09:00 Dextromethorphan/ Quinidine (Nuedexta 20-10 Mg Capsule) 1 cap BID PO Last administered on 09/29/18 19:46; Start 09/13/18 at 22:00 Albuterol/ Ipratropium (Duoneb) 3 ml PRN Q6HRS PRN NEB COUGH; Start 09/13/18 at 21:15 Metoprolol Succinate (Toprol Xl) 25 mg DAILY PO Last administered on 09/29/18 07:44; Start 09/14/18 at 09:00 Simvastatin (Zocor) 10 mg HS PO Last administered on 09/29/18 19:44; Start 09/13/18 at 22:00 Aspirin (Children'S Aspirin) 81 mg DAILY PO Last administered on 09/29/18 07:43; Start 09/14/18 at 08:00 Divalproex Sodium (Depakote Sprinkles) 1,000 mg HS PO Last administered on 09/29/18 19:44; Start 09/13/18 at 22:00 Divalproex Sodium (Depakote Sprinkles) 750 mg DAILY PO Last administered on 09/29/18 07:42; Start 09/14/18 at 09:00 Docusate Sodium (Colace) 100 mg BID PO Last administered on 09/29/18 19:44; Start 09/13/18 at 22:00 Donepezil HCl (Aricept) 10 mg HS PO Last administered on 09/29/18 19:44; Start 09/13/18 at 22:00 Famotidine (Pepcid) 20 mg HS PO Last administered on 09/29/18 19:44; Start 09/13/18 at 22:00 Levothyroxine Sodium (Synthroid) 50 mcg DAILY06 PO Last administered on 09/29/18 05:58; Start 09/14/18 at 06:00 Lorazepam (Ativan) 0.5 mg PRN TID PRN PO ANXIETY / AGITATION Last administered on 09/29/18 13:11; Start 09/13/18 at 21:30 Non-Formulary Medication (Menthol (Biofreeze)) 118 ml PRN Q24HRS PRN TP PAIN; Start 09/13/18 at 21:15; Status UNV Metformin HCl (Glucophage) 500 mg BIDWMEALS PO Last administered on 09/29/18 16:03; Start 09/14/18 at 08:00 Olanzapine (ZyPREXA) 20 mg DAILY PO Last administered on 09/29/18 07:43; Start 09/14/18 at 09:00 Quetiapine Fumarate (SEROquel) 200 mg DAILY PO Last administered on 09/16/18 09:27; Start 09/14/18 at 09:00; Stop 09/16/18 at 11:17; Status DC Quetiapine Fumarate (SEROquel) 300 mg DAILY@1500 PO Last administered on 09/15/18 15:06; Start 09/14/18 at 15:00; Stop 09/16/18 at 11:17; Status DC Quetiapine Fumarate (SEROquel) 300 mg HS PO Last administered on 09/29/18 19:44; Start 09/13/18 at 22:30 Quetiapine Fumarate (SEROquel) 100 mg DAILY PO Last administered on 09/29/18 07:43; Start 09/17/18 at 09:00 Quetiapine Fumarate (SEROquel) 200 mg DAILY@1500 PO Last administered on 09/29/18 16:00; Start 09/16/18 at 15:00 Sertraline HCl (Zoloft) 50 mg DAILY PO Last administered on 09/20/18at 08:02; Start 09/17/18 at 09:00; Stop 09/20/18 at 19:36; Status DC Hydroxyzine HCl (Atarax) 25 mg PRN Q2HR PRN PO ANXIETY / AGITATION Last administered on 09/28/18 13:00; Start 09/18/18 at 22:30 Polyethylene Glycol (miraLAX) 17 gm DAILY PO Last administered on 09/29/18 07:44; Start 09/21/18 at 09:00 Sertraline HCl (Zoloft) 75 mg DAILY PO Last administered on 09/24/18 08:07; Start 09/21/18 at 09:00; Stop 09/24/18 at 18:22; Status DC Trazodone HCl (Desyrel) 50 mg QHS PO Last administered on 09/29/18 19:45; Start 09/23/18 at 21:00 Trazodone HCl (Desyrel) 50 mg PRN QHS PRN PO INSOMNIA; Start 09/23/18 at 11:30 Sertraline HCl (Zoloft) 100 mg DAILY PO Last administered on 09/29/18 07:43; Start 09/25/18 at 09:00; Stop 09/29/18 at 21:00; Status DC Sertraline HCl (Zoloft) 125 mg DAILY PO ; Start 09/30/18 at 09:00 Active Scripts Active Reported Seroquel (Quetiapine Fumarate) 300 Mg Tablet 300 Mg PO HS Seroquel (Quetiapine Fumarate) 300 Mg Tablet 300 Mg PO DAILY@1500 Seroquel (Quetiapine Fumarate) 200 Mg Tablet 200 Mg PO DAILY Vitamin D3 (Cholecalciferol (Vitamin D3)) 1,000 Unit Tablet 4,000 Unit PO DAILY Simvastatin 10 Mg Tablet 10 Mg PO HS Olanzapine 20 Mg Tablet 20 Mg PO DAILY Nuedexta 20-10 Mg Capsule (Dextromethorphan Hbr/Quinidine) 1 Each Capsule 1 Each PO BID Tylenol (Acetaminophen) 325 Mg Tablet 325 Mg PO TID Metoprolol Succinate ( Xl ) (Metoprolol Succinate) 25 Mg Tab.er.24h 25 Mg PO DAILY Metformin Hcl 500 Mg Tablet 500 Mg PO BIDWMEALS Lorazepam 0.5 Mg Tablet 0.5 Mg PO PRN TID PRN Levothyroxine Sodium 50 Mcg Tablet 50 Mcg PO DAILYAC Duoneb 0.5-3(2.5) Mg/3 Ml (Albuterol/Ipratropium) 3 Ml Ampul.neb 3 Ml NEB PRN Q6HRS PRN Famotidine 20 Mg Tablet 20 Mg PO HS Donepezil Hcl 10 Mg Tablet 10 Mg PO HS Docusate Sodium 100 Mg Capsule 100 Mg PO BID Depakote Sprinkle (Divalproex Sodium) 125 Mg Cap.sprink 750 Mg PO DAILY Depakote Sprinkle (Divalproex Sodium) 125 Mg Cap.sprink 1,000 Mg PO HS Biofreeze (Menthol) 118 Ml Gel..ml. 118 Ml TP PRN Q24HRS PRN Aspirin 81 Mg Tab.chew 81 Mg PO DAILY I have reviewed the current psychotropics carefully including drug interactions. Risk benefit ratio favors no change other than as noted in my dictated progress note. Diagnosis: Problems: (1) Anxiety disorder (2) Dementia in Alzheimer's disease with delusions (3) Dementia in Alzheimer's disease with depression (4) Dementia, vascular, with delusions (5) Dementia, vascular, with depression (6) Impulse control disorder KAMILA GOMEZ MD September 29, 2018 22:31
[2018-09-30] MEDS: LEVOTHYROXINE 50 MCG TABLET PO SCH (05:28)
[2018-09-30 05:44] VITALS: BP 148/87
[2018-09-30] MEDS: LORazepam 0.5 MG TABLET PO PRN ×2 (07:09→13:16)
[2018-09-30] MEDS: DIVALPROEX 125 MG CAP.SPRINK PO SCH ×2 (07:58→19:20)
[2018-09-30] MEDS: CHOLECALCIFEROL (VITAMIN D3) 1,000 UNIT TABLET PO SCH (07:58)
[2018-09-30] MEDS: METOPROLOL SUCC 24HR ER 25 MG TAB.ER.24H. PO SCH (07:58)
[2018-09-30] MEDS: POLYETHYLENE GLYCOL 3350 17 GM PACKET. PO SCH (07:58)
[2018-09-30] MEDS: QUEtiapine 100 MG TABLET. PO SCH ×3 (07:59→19:19)
[2018-09-30] MEDS: DOCUSATE SODIUM 100 MG CAPSULE PO SCH ×2 (07:59→19:19)
[2018-09-30] MEDS: metFORMIN 500 MG TABLET PO SCH ×2 (07:59→17:00)
[2018-09-30] MEDS: ASPIRIN 81 MG TAB.CHEW PO SCH (07:59)
[2018-09-30] MEDS: OLANZapine 10 MG TABLET PO SCH (07:59)
[2018-09-30] MEDS: ACETAMINOPHEN 325 MG TABLET PO SCH ×3 (07:59→19:19)
[2018-09-30] MEDS: DEXTROMETHORPHAN/QUINIDINE 20/10MG CAPSULE. PO SCH ×2 (08:01→19:21)
[2018-09-30] MEDS: SERTRALINE 25 MG TABLET. PO SCH (09:20)
[2018-09-30 15:43] VITALS: BP 117/78
[2018-09-30] MEDS: FAMOTIDINE 20 MG TABLET PO SCH (19:19)
[2018-09-30] MEDS: traZODone 50 MG TABLET. PO SCH (19:19)
[2018-09-30] MEDS: SIMVASTATIN 10 MG TABLET PO SCH (19:19)
[2018-09-30] MEDS: DONEPEZIL HCL 10 MG TABLET PO SCH (19:20)
[2018-09-30 20:22] LABS: BASO # 0.1 x10^3/uL (0.0-0.2); BASO % 1 % (0-3); EOS # 0.3 x10^3/uL (0.0-0.7); EOS % 2 % (0-3); HEMATOCRIT 34.7 % (39.0-53.0); HEMOGLOBIN 11.1 g/dL (13.0-17.5); LYMPH # 3.3 x10^3/uL (1.0-4.8); LYMPH % 26 % (24-48); MEAN CORPUSCULAR HEMOGLOBIN 25 pg (25-35); MEAN CORPUSCULAR HGB CONC 32 g/dL (31-37); MEAN CORPUSCULAR VOLUME 78 fL (79-100); MONO # 1.4 x10^3/uL (0.0-1.1); MONO % 11 % (0-9); NEUT # 7.7 x10^3uL (1.8-7.7); NEUT % 60 % (31-73); PLATELET COUNT 251 x10^3/uL (140-400); RED BLOOD COUNT 4.43 x10^6/uL (4.30-5.70); RED CELL DISTRIBUTION WIDTH 17.6 % (11.5-14.5); WHITE BLOOD COUNT 12.8 x10^3/uL (4.0-11.0)
[2018-09-30 20:35] LABS: ALBUMIN 2.7 g/dL (3.4-5.0); ALBUMIN/GLOBULIN RATIO 0.7 (1.0-1.7); CALCIUM 8.8 mg/dL (8.5-10.1); CREATININE 1.3 mg/dL (0.7-1.3); GFR 54.1; POTASSIUM 4.4 mmol/L (3.5-5.1); TOTAL BILIRUBIN 0.1 mg/dL (0.2-1.0); TOTAL PROTEIN 6.7 g/dL (6.4-8.2)
--- NOTE | 2018-09-30 22:26 | PDOC ---
Exam Note: Og Note: Please also refer to the separate dictated note~for this date of service dictated separately.~Patient seen individually. Discussed the patient with Nursing staff reviewed the chart.~Reviewed interim history and current functioning. Reviewed vital signs,~Labs/ Radiology~and current medications noted below. Continue current treatment with the changes noted in the dictated addendum note Assessment: Vital Signs: Vital Signs Date Time Temp Pulse Resp B/P (MAP) Pulse Ox O2 Delivery O2 Flow Rate FiO2 09/30/18 15:43 97.5 75 18 117/78 (91) 95 Room Air I&O Intake and Output 09/30/18 07:00 Intake Total 1920 ml Balance 1920 ml Intake Oral 1920 ml # Voids 1 # Bowel Movements 1 Labs: Laboratory Tests Test 09/30/18 05:57 09/30/18 07:08 09/30/18 18:02 09/30/18 20:10 Glucose (Fingerstick) 93 mg/dL (70-99) 133 mg/dL (70-99) H 136 mg/dL (70-99) H White Blood Count 12.8 x10^3/uL (4.0-11.0) H Red Blood Count 4.43 x10^6/uL (4.30-5.70) Hemoglobin 11.1 g/dL (13.0-17.5) L Hematocrit 34.7 % (39.0-53.0) L Mean Corpuscular Volume 78 fL (79-100) L Mean Corpuscular Hemoglobin 25 pg (25-35) Mean Corpuscular Hemoglobin Concent 32 g/dL (31-37) Red Cell Distribution Width 17.6 % (11.5-14.5) H Platelet Count 251 x10^3/uL (140-400) Neutrophils (%) (Auto) 60 % (31-73) Lymphocytes (%) (Auto) 26 % (24-48) Monocytes (%) (Auto) 11 % (0-9) H Eosinophils (%) (Auto) 2 % (0-3) Basophils (%) (Auto) 1 % (0-3) Neutrophils # (Auto) 7.7 x10^3uL (1.8-7.7) Lymphocytes # (Auto) 3.3 x10^3/uL (1.0-4.8) Monocytes # (Auto) 1.4 x10^3/uL (0.0-1.1) H Eosinophils # (Auto) 0.3 x10^3/uL (0.0-0.7) Basophils # (Auto) 0.1 x10^3/uL (0.0-0.2) Sodium Level 136 mmol/L (136-145) Potassium Level 4.4 mmol/L (3.5-5.1) Chloride Level 99 mmol/L (98-107) Carbon Dioxide Level 27 mmol/L (21-32) Anion Gap 10 (6-14) Blood Urea Nitrogen 21 mg/dL (8-26) Creatinine 1.3 mg/dL (0.7-1.3) Estimated GFR (Cockcroft-Gault) 54.1 BUN/Creatinine Ratio 16 (6-20) Glucose Level 107 mg/dL (70-99) H Calcium Level 8.8 mg/dL (8.5-10.1) Total Bilirubin 0.1 mg/dL (0.2-1.0) L Aspartate Amino Transferase (AST) 12 U/L (15-37) L Alanine Aminotransferase (ALT) 12 U/L (16-63) L Alkaline Phosphatase 86 U/L (46-116) Total Protein 6.7 g/dL (6.4-8.2) Albumin 2.7 g/dL (3.4-5.0) L Albumin/Globulin Ratio 0.7 (1.0-1.7) L Current Medications: Meds: Current Medications Acetaminophen (Tylenol) 650 mg PRN Q6HRS PRN PO PAIN / TEMP Last administered on 09/25/18at 04:12; Start 09/13/18 at 18:45 Multi-Ingredient Ointment (Analgesic [place]) 1 johnny PRN QID PRN TP MUSCLE PAIN; Start 09/13/18 at 18:45 Al Hydroxide/Mg Hydroxide (Mylanta Plus Xs) 15 ml PRN AFTMEALHC PRN PO DYSPEPSIA Last administered on 09/24/18at 14:45; Start 09/13/18 at 18:45 Magnesium Hydroxide (Milk Of Magnesia) 2,400 mg PRN QHS PRN PO CONSTIPATION; Start 09/13/18 at 18:45 Acetaminophen (Tylenol) 325 mg TID PO Last administered on 09/30/18 19:19; Start 09/14/18 at 09:00 Vitamin D (Vitamin D3) 4,000 unit DAILY PO Last administered on 09/30/18 07:58; Start 09/14/18 at 09:00 Dextromethorphan/ Quinidine (Nuedexta 20-10 Mg Capsule) 1 cap BID PO Last administered on 09/30/18 19:21; Start 09/13/18 at 22:00 Albuterol/ Ipratropium (Duoneb) 3 ml PRN Q6HRS PRN NEB COUGH; Start 09/13/18 at 21:15 Metoprolol Succinate (Toprol Xl) 25 mg DAILY PO Last administered on 09/30/18 07:58; Start 09/14/18 at 09:00 Simvastatin (Zocor) 10 mg HS PO Last administered on 09/30/18 19:19; Start 09/13/18 at 22:00 Aspirin (Children'S Aspirin) 81 mg DAILY PO Last administered on 09/30/18 07:59; Start 09/14/18 at 08:00 Divalproex Sodium (Depakote Sprinkles) 1,000 mg HS PO Last administered on 09/30/18 19:20; Start 09/13/18 at 22:00 Divalproex Sodium (Depakote Sprinkles) 750 mg DAILY PO Last administered on 09/30/18 07:58; Start 09/14/18 at 09:00 Docusate Sodium (Colace) 100 mg BID PO Last administered on 09/30/18 19:19; Start 09/13/18 at 22:00 Donepezil HCl (Aricept) 10 mg HS PO Last administered on 09/30/18 19:20; Start 09/13/18 at 22:00 Famotidine (Pepcid) 20 mg HS PO Last administered on 09/30/18 19:19; Start 09/13/18 at 22:00 Levothyroxine Sodium (Synthroid) 50 mcg DAILY06 PO Last administered on 09/30/18 05:28; Start 09/14/18 at 06:00 Lorazepam (Ativan) 0.5 mg PRN TID PRN PO ANXIETY / AGITATION Last administered on 09/30/18 13:16; Start 09/13/18 at 21:30 Non-Formulary Medication (Menthol (Biofreeze)) 118 ml PRN Q24HRS PRN TP PAIN; Start 09/13/18 at 21:15; Status UNV Metformin HCl (Glucophage) 500 mg BIDWMEALS PO Last administered on 09/30/18 17:00; Start 09/14/18 at 08:00 Olanzapine (ZyPREXA) 20 mg DAILY PO Last administered on 09/30/18 07:59; Start 09/14/18 at 09:00 Quetiapine Fumarate (SEROquel) 200 mg DAILY PO Last administered on 09/16/18 09:27; Start 09/14/18 at 09:00; Stop 09/16/18 at 11:17; Status DC Quetiapine Fumarate (SEROquel) 300 mg DAILY@1500 PO Last administered on 09/15/18at 15:06; Start 09/14/18 at 15:00; Stop 09/16/18 at 11:17; Status DC Quetiapine Fumarate (SEROquel) 300 mg HS PO Last administered on 09/30/18 19:19; Start 09/13/18 at 22:30 Quetiapine Fumarate (SEROquel) 100 mg DAILY PO Last administered on 09/30/18 07:59; Start 09/17/18 at 09:00 Quetiapine Fumarate (SEROquel) 200 mg DAILY@1500 PO Last administered on 9at 14:29; Start 09/16/18 at 15:00 Sertraline HCl (Zoloft) 50 mg DAILY PO Last administered on 09/20/18 08:02; Start 09/17/18 at 09:00; Stop 09/20/18 at 19:36; Status DC Hydroxyzine HCl (Atarax) 25 mg PRN Q2HR PRN PO ANXIETY / AGITATION Last administered on 09/28/18 13:00; Start 09/18/18 at 22:30 Polyethylene Glycol (miraLAX) 17 gm DAILY PO Last administered on 09/30/18 07:58; Start 09/21/18 at 09:00 Sertraline HCl (Zoloft) 75 mg DAILY PO Last administered on 09/24/18 08:07; Start 09/21/18 at 09:00; Stop 09/24/18 at 18:22; Status DC Trazodone HCl (Desyrel) 50 mg QHS PO Last administered on 09/30/18at 19:19; Start 09/23/18 at 21:00 Trazodone HCl (Desyrel) 50 mg PRN QHS PRN PO INSOMNIA; Start 09/23/18 at 11:30 Sertraline HCl (Zoloft) 100 mg DAILY PO Last administered on 09/29/18at 07:43; Start 09/25/18 at 09:00; Stop 09/29/18 at 21:00; Status DC Sertraline HCl (Zoloft) 125 mg DAILY PO Last administered on 09/30/18at 09:20; Start 09/30/18 at 09:00 Active Scripts Active Reported Seroquel (Quetiapine Fumarate) 300 Mg Tablet 300 Mg PO HS Seroquel (Quetiapine Fumarate) 300 Mg Tablet 300 Mg PO DAILY@1500 Seroquel (Quetiapine Fumarate) 200 Mg Tablet 200 Mg PO DAILY Vitamin D3 (Cholecalciferol (Vitamin D3)) 1,000 Unit Tablet 4,000 Unit PO DAILY Simvastatin 10 Mg Tablet 10 Mg PO HS Olanzapine 20 Mg Tablet 20 Mg PO DAILY Nuedexta 20-10 Mg Capsule (Dextromethorphan Hbr/Quinidine) 1 Each Capsule 1 Each PO BID Tylenol (Acetaminophen) 325 Mg Tablet 325 Mg PO TID Metoprolol Succinate ( Xl ) (Metoprolol Succinate) 25 Mg Tab.er.24h 25 Mg PO DAILY Metformin Hcl 500 Mg Tablet 500 Mg PO BIDWMEALS Lorazepam 0.5 Mg Tablet 0.5 Mg PO PRN TID PRN Levothyroxine Sodium 50 Mcg Tablet 50 Mcg PO DAILYAC Duoneb 0.5-3(2.5) Mg/3 Ml (Albuterol/Ipratropium) 3 Ml Ampul.neb 3 Ml NEB PRN Q6HRS PRN Famotidine 20 Mg Tablet 20 Mg PO HS Donepezil Hcl 10 Mg Tablet 10 Mg PO HS Docusate Sodium 100 Mg Capsule 100 Mg PO BID Depakote Sprinkle (Divalproex Sodium) 125 Mg Cap.sprink 750 Mg PO DAILY Depakote Sprinkle (Divalproex Sodium) 125 Mg Cap.sprink 1,000 Mg PO HS Biofreeze (Menthol) 118 Ml Gel..ml. 118 Ml TP PRN Q24HRS PRN Aspirin 81 Mg Tab.chew 81 Mg PO DAILY I have reviewed the current psychotropics carefully including drug interactions. Risk benefit ratio favors no change other than as noted in my dictated progress note. Diagnosis: Problems: (1) Anxiety disorder (2) Dementia in Alzheimer's disease with delusions (3) Dementia in Alzheimer's disease with depression (4) Dementia, vascular, with delusions (5) Dementia, vascular, with depression (6) Impulse control disorder KAMILA GOMEZ MD September 30, 2018 22:26
[2018-10-01] MEDS: LEVOTHYROXINE 50 MCG TABLET PO SCH (05:46)
[2018-10-01 06:11] VITALS: BP 144/81
[2018-10-01] MEDS: DIVALPROEX 125 MG CAP.SPRINK PO SCH ×2 (07:56→20:00)
[2018-10-01] MEDS: CHOLECALCIFEROL (VITAMIN D3) 1,000 UNIT TABLET PO SCH (07:57)
[2018-10-01] MEDS: METOPROLOL SUCC 24HR ER 25 MG TAB.ER.24H. PO SCH (07:57)
[2018-10-01] MEDS: SERTRALINE 25 MG TABLET. PO SCH (07:57)
[2018-10-01] MEDS: QUEtiapine 100 MG TABLET. PO SCH ×3 (07:58→20:00)
[2018-10-01] MEDS: metFORMIN 500 MG TABLET PO SCH ×2 (07:58→17:29)
[2018-10-01] MEDS: POLYETHYLENE GLYCOL 3350 17 GM PACKET. PO SCH (07:58)
[2018-10-01] MEDS: OLANZapine 10 MG TABLET PO SCH (07:58)
[2018-10-01] MEDS: ACETAMINOPHEN 325 MG TABLET PO SCH ×3 (07:58→19:59)
[2018-10-01] MEDS: DOCUSATE SODIUM 100 MG CAPSULE PO SCH ×2 (07:58→19:59)
[2018-10-01] MEDS: ASPIRIN 81 MG TAB.CHEW PO SCH (07:58)
[2018-10-01] MEDS: DEXTROMETHORPHAN/QUINIDINE 20/10MG CAPSULE. PO SCH ×2 (07:59→20:01)
[2018-10-01] MEDS: LORazepam 0.5 MG TABLET PO PRN (11:26)
--- NOTE | 2018-10-01 14:55 | PN ---
DATE: 09/29/2018 PSYCHIATRIC PROGRESS NOTE This is a late entry 09/29/2018, covers elements not covered in my initial note. SUBJECTIVE: I met with the patient in the evening. The patient slept 7-1/4 hours previous night. He has not been yelling, did receive Ativan p.r.n. x 1 after lunch for anxiety, then did better after that. REVIEW OF SYSTEMS: Ambulation impaired, in wheelchair. No CV, , pulmonary, eye, ENT system symptoms on review. Reliability varies. MENTAL STATUS EXAM: Oriented to himself and situation. Speech has some latency, often responses monosyllabic, coherent. Abstraction fair, computation impaired, language function intact, attention span short. Mood and affect somewhat withdrawn. LABORATORY DATA: Reviewed. IMPRESSION: Unchanged from initial note. PLAN: No change from initial note. MAN Samina GOMEZ MD DR: KSENIA/rocky JOB#: [id number] / [id number]
--- NOTE | 2018-10-01 15:17 | RAD ---
Portable chest, 10/01/2018: HISTORY: Increased white blood cell count The heart size and pulmonary vascularity are normal. There is minimal streaky atelectasis/infiltrate in the left base. Mild eventration of the right hemidiaphragm appears to be producing a minimal right basilar opacity. The upper lung gupta are clear. No pleural fluid is evident. IMPRESSION: Minimal left basilar atelectasis/infiltrate. Electronically signed by: Behzad Ramírez MD (10/01/2018 3:14 PM) [facility]
[2018-10-01 16:35] LABS: BILIRUBIN,URINE NEG (NEG); CLARITY,URINE CLOUDY; COLOR,URINE YELLOW; GLUCOSE,URINE NEG (NEG)
[2018-10-01 16:36] LABS: BACTERIA,URINE 0 /HPF (0-FEW); NITRITE,URINE NEG (NEG); SQUAMOUS EPITHELIAL CELL,UR OCC /LPF; UROBILINOGEN,URINE 0.2 mg/dL (0.2 mg/dL); WBC,URINE OCC /HPF (0-4)
[2018-10-01 16:41] VITALS: BP 100/72
[2018-10-01] MEDS: levoFLOXacin 500 MG TABLET PO SCH (17:29)
[2018-10-01] MEDS: SIMVASTATIN 10 MG TABLET PO SCH (19:59)
[2018-10-01] MEDS: FAMOTIDINE 20 MG TABLET PO SCH (19:59)
[2018-10-01] MEDS: DONEPEZIL HCL 10 MG TABLET PO SCH (20:00)
[2018-10-01] MEDS: traZODone 50 MG TABLET. PO SCH (20:02)
--- NOTE | 2018-10-01 21:28 | PN ---
DATE: 09/30/2018 PSYCHIATRIC PROGRESS NOTE This late entry 09/30/2018 covers elements not covered in my initial note. SUBJECTIVE: I met with the patient in the evening of 09/30/2018 and staffed at a treatment team meeting with the entire team in the morning and the public legal administrator hr representative, Reyna, attended the treatment team meeting. Reviewed the patient's history, diagnosis, current treatment at length. Appetite 100%, sleeping 7-1/4 hours average at night. He has been calm redirected, somewhat withdrawn. REVIEW OF SYSTEMS: Ambulation impaired, in wheelchair. No CV, , pulmonary, eye system symptoms on review. Reliability varies. MENTAL STATUS EXAM: Oriented to himself and situation. Speech moderate latency, often responses monosyllabic. Abstraction fair, computation impaired, language function intact, attention span short. Mood and affect somewhat withdrawn, but less labile, less anxious. LABORATORY DATA: Reviewed. IMPRESSION: Unchanged from initial note. PLAN: No change from initial note. MAN Samina GOMEZ MD DR: KSENIA/rocky JOB#: [id number] / [id number]
--- NOTE | 2018-10-01 22:26 | PDOC ---
Exam Note: Og Note: Please also refer to the separate dictated note~for this date of service dictated separately.~Patient seen individually. Discussed the patient with Nursing staff reviewed the chart.~Reviewed interim history and current functioning. Reviewed vital signs,~Labs/ Radiology~and current medications noted below. Continue current treatment with the changes noted in the dictated addendum note Assessment: Vital Signs: Vital Signs Date Time Temp Pulse Resp B/P (MAP) Pulse Ox O2 Delivery O2 Flow Rate FiO2 10/01/18 16:41 98.2 62 16 100/72 (81) 92 09/30/18 15:43 Room Air I&O Intake and Output 10/01/18 07:00 Intake Total 960 ml Balance 960 ml Intake Oral 960 ml # Bowel Movements 1 Labs: Laboratory Tests Test 10/01/18 07:04 10/01/18 16:15 Glucose (Fingerstick) 101 mg/dL (70-99) H Urine Collection Type U cath Urine Color Yellow Urine Clarity Cloudy Urine pH 5.5 Urine Specific [place] >=1.030 Urine Protein 30 mg/dl (NEG-TRACE) Urine Glucose (UA) Neg mg/dL (NEG) Urine Ketones (Stick) 15 mg/dL (NEG) Urine Blood Neg (NEG) Urine Nitrite Neg (NEG) Urine Bilirubin Neg (NEG) Urine Urobilinogen Dipstick 0.2 mg/dL (0.2 mg/dL) Urine Leukocyte Esterase Neg (NEG) Urine RBC 1-2 /HPF (0-2) Urine WBC Occ /HPF (0-4) Urine Squamous Epithelial Cells Occ /LPF Urine Bacteria 0 /HPF (0-FEW) Urine Mucus Mod /LPF Current Medications: Meds: Current Medications Acetaminophen (Tylenol) 650 mg PRN Q6HRS PRN PO PAIN / TEMP Last administered on 09/25/18at 04:12; Start 09/13/18 at 18:45 Multi-Ingredient Ointment (Analgesic [place]) 1 johnny PRN QID PRN TP MUSCLE PAIN; Start 09/13/18 at 18:45 Al Hydroxide/Mg Hydroxide (Mylanta Plus Xs) 15 ml PRN AFTMEALHC PRN PO DYSPEPSIA Last administered on 09/24/18at 14:45; Start 09/13/18 at 18:45 Magnesium Hydroxide (Milk Of Magnesia) 2,400 mg PRN QHS PRN PO CONSTIPATION; Start 09/13/18 at 18:45 Acetaminophen (Tylenol) 325 mg TID PO Last administered on 10/01/18 19:59; Start 09/14/18 at 09:00 Vitamin D (Vitamin D3) 4,000 unit DAILY PO Last administered on 10/01/18 07:57; Start 09/14/18 at 09:00 Dextromethorphan/ Quinidine (Nuedexta 20-10 Mg Capsule) 1 cap BID PO Last administered on 10/01/18 20:01; Start 09/13/18 at 22:00 Albuterol/ Ipratropium (Duoneb) 3 ml PRN Q6HRS PRN NEB COUGH; Start 09/13/18 at 21:15 Metoprolol Succinate (Toprol Xl) 25 mg DAILY PO Last administered on 10/01/18 07:57; Start 09/14/18 at 09:00 Simvastatin (Zocor) 10 mg HS PO Last administered on 10/01/18 19:59; Start 09/13/18 at 22:00 Aspirin (Children'S Aspirin) 81 mg DAILY PO Last administered on 10/01/18 07:58; Start 09/14/18 at 08:00 Divalproex Sodium (Depakote Sprinkles) 1,000 mg HS PO Last administered on 10/01/18 20:00; Start 09/13/18 at 22:00 Divalproex Sodium (Depakote Sprinkles) 750 mg DAILY PO Last administered on 10/01/18 07:56; Start 09/14/18 at 09:00 Docusate Sodium (Colace) 100 mg BID PO Last administered on 10/01/18 19:59; Start 09/13/18 at 22:00 Donepezil HCl (Aricept) 10 mg HS PO Last administered on 10/01/18 20:00; Start 09/13/18 at 22:00 Famotidine (Pepcid) 20 mg HS PO Last administered on 10/01/18 19:59; Start 09/13/18 at 22:00 Levothyroxine Sodium (Synthroid) 50 mcg DAILY06 PO Last administered on 10/01/18 05:46; Start 09/14/18 at 06:00 Lorazepam (Ativan) 0.5 mg PRN TID PRN PO ANXIETY / AGITATION Last administered on 10/01/18 11:26; Start 09/13/18 at 21:30 Non-Formulary Medication (Menthol (Biofreeze)) 118 ml PRN Q24HRS PRN TP PAIN; Start 09/13/18 at 21:15; Status UNV Metformin HCl (Glucophage) 500 mg BIDWMEALS PO Last administered on 10/01/18 17:29; Start 09/14/18 at 08:00 Olanzapine (ZyPREXA) 20 mg DAILY PO Last administered on 10/01/18 07:58; Start 09/14/18 at 09:00; Stop 10/01/18 at 18:14; Status DC Quetiapine Fumarate (SEROquel) 200 mg DAILY PO Last administered on 09/16/18 09:27; Start 09/14/18 at 09:00; Stop 09/16/18 at 11:17; Status DC Quetiapine Fumarate (SEROquel) 300 mg DAILY@1500 PO Last administered on 09/15/18 15:06; Start 09/14/18 at 15:00; Stop 09/16/18 at 11:17; Status DC Quetiapine Fumarate (SEROquel) 300 mg HS PO Last administered on 10/01/18 20:00; Start 09/13/18 at 22:30 Quetiapine Fumarate (SEROquel) 100 mg DAILY PO Last administered on 10/01/18 07:58; Start 09/17/18 at 09:00 Quetiapine Fumarate (SEROquel) 200 mg DAILY@1500 PO Last administered on 10/01/18 13:54; Start 09/16/18 at 15:00 Sertraline HCl (Zoloft) 50 mg DAILY PO Last administered on 09/20/18 08:02; Start 09/17/18 at 09:00; Stop 09/20/18 at 19:36; Status DC Hydroxyzine HCl (Atarax) 25 mg PRN Q2HR PRN PO ANXIETY / AGITATION Last administered on 09/28/18 13:00; Start 09/18/18 at 22:30 Polyethylene Glycol (miraLAX) 17 gm DAILY PO Last administered on 10/01/18 07:58; Start 09/21/18 at 09:00 Sertraline HCl (Zoloft) 75 mg DAILY PO Last administered on 09/24/18at 08:07; Start 09/21/18 at 09:00; Stop 09/24/18 at 18:22; Status DC Trazodone HCl (Desyrel) 50 mg QHS PO Last administered on 10/01/18at 20:02; Start 09/23/18 at 21:00 Trazodone HCl (Desyrel) 50 mg PRN QHS PRN PO INSOMNIA; Start 09/23/18 at 11:30 Sertraline HCl (Zoloft) 100 mg DAILY PO Last administered on 09/29/18at 07:43; Start 09/25/18 at 09:00; Stop 09/29/18 at 21:00; Status DC Sertraline HCl (Zoloft) 125 mg DAILY PO Last administered on 10/01/18at 07:57; Start 09/30/18 at 09:00 Levofloxacin (Levaquin) 500 mg DAILY PO Last administered on 10/01/18at 17:29; Start 10/01/18 at 17:00; Stop 10/10/18 at 23:50 Olanzapine (ZyPREXA) 17.5 mg DAILY PO ; Start 10/02/18 at 09:00; Stop 10/02/18 at 09:00; Status DC Olanzapine (ZyPREXA) 15 mg DAILY PO ; Start 10/05/18 at 09:00; Stop 10/05/18 at 09:00; Status DC Olanzapine (ZyPREXA) 12.5 mg DAILY PO ; Start 10/19/18 at 09:00; Stop 10/19/18 at 09:00; Status DC Olanzapine (ZyPREXA) 10 mg DAILY PO ; Start 11/02/18 at 09:00; Stop 11/02/18 at 09:00; Status DC Olanzapine (ZyPREXA) 7.5 mg DAILY PO ; Start 11/16/18 at 09:00; Stop 11/16/18 at 09:00; Status DC Olanzapine (ZyPREXA) 5 mg DAILY PO ; Start 11/30/18 at 09:00; Stop 11/30/18 at 09:00; Status DC Olanzapine (ZyPREXA) 2.5 mg DAILY PO ; Start 12/14/18 at 09:00; Stop 12/14/18 at 09:00; Status DC Olanzapine (ZyPREXA) 17.5 mg QHS PO ; Start 10/02/18 at 21:00; Stop 10/04/18 at 23:00 Olanzapine (ZyPREXA) 2.5 mg HS PO ; Start 12/14/18 at 21:00; Stop 12/27/18 at 23:50 Olanzapine (ZyPREXA) 15 mg QHS PO ; Start 10/05/18 at 21:00; Stop 10/18/18 at 23:50 Olanzapine (ZyPREXA) 12.5 mg QHS PO ; Start 10/19/18 at 21:00; Stop 11/01/18 at 23:50 Olanzapine (ZyPREXA) 10 mg QHS PO ; Start 11/02/18 at 21:00; Stop 11/15/18 at 23:50 Olanzapine (ZyPREXA) 7.5 mg QHS PO ; Start 11/16/18 at 21:00; Stop 11/29/18 at 23:50 Olanzapine (ZyPREXA) 5 mg QHS PO ; Start 11/30/18 at 21:00; Stop 12/13/18 at 23:50 Active Scripts Active Reported Seroquel (Quetiapine Fumarate) 300 Mg Tablet 300 Mg PO HS Seroquel (Quetiapine Fumarate) 300 Mg Tablet 300 Mg PO DAILY@1500 Seroquel (Quetiapine Fumarate) 200 Mg Tablet 200 Mg PO DAILY Vitamin D3 (Cholecalciferol (Vitamin D3)) 1,000 Unit Tablet 4,000 Unit PO DAILY Simvastatin 10 Mg Tablet 10 Mg PO HS Olanzapine 20 Mg Tablet 20 Mg PO DAILY Nuedexta 20-10 Mg Capsule (Dextromethorphan Hbr/Quinidine) 1 Each Capsule 1 Each PO BID Tylenol (Acetaminophen) 325 Mg Tablet 325 Mg PO TID Metoprolol Succinate ( Xl ) (Metoprolol Succinate) 25 Mg Tab.er.24h 25 Mg PO DAILY Metformin Hcl 500 Mg Tablet 500 Mg PO BIDWMEALS Lorazepam 0.5 Mg Tablet 0.5 Mg PO PRN TID PRN Levothyroxine Sodium 50 Mcg Tablet 50 Mcg PO DAILYAC Duoneb 0.5-3(2.5) Mg/3 Ml (Albuterol/Ipratropium) 3 Ml Ampul.neb 3 Ml NEB PRN Q6HRS PRN Famotidine 20 Mg Tablet 20 Mg PO HS Donepezil Hcl 10 Mg Tablet 10 Mg PO HS Docusate Sodium 100 Mg Capsule 100 Mg PO BID Depakote Sprinkle (Divalproex Sodium) 125 Mg Cap.sprink 750 Mg PO DAILY Depakote Sprinkle (Divalproex Sodium) 125 Mg Cap.sprink 1,000 Mg PO HS Biofreeze (Menthol) 118 Ml Gel..ml. 118 Ml TP PRN Q24HRS PRN Aspirin 81 Mg Tab.chew 81 Mg PO DAILY I have reviewed the current psychotropics carefully including drug interactions. Risk benefit ratio favors no change other than as noted in my dictated progress note. Diagnosis: Problems: (1) Anxiety disorder (2) Dementia in Alzheimer's disease with delusions (3) Dementia in Alzheimer's disease with depression (4) Dementia, vascular, with delusions (5) Dementia, vascular, with depression (6) Impulse control disorder KAMILA GOMEZ MD October 01, 2018 22:26
--- NOTE | 2018-10-02 00:19 | PN ---
DATE: 09/30/2018 ADDENDUM Late in the evening nursing staff informed me the patient had been little more anxious in the day, received Ativan x 2, was incontinent, defecated all over the bathroom, was quite a mess. I processed this with the patient and he was aware of it. We will continue to monitor. MAN Samina GOMEZ MD DR: KSENIA/rocky JOB#: [id number] / [id number]
[2018-10-02] MEDS: LEVOTHYROXINE 50 MCG TABLET PO SCH (04:39)
[2018-10-02 05:52] VITALS: BP 123/72
[2018-10-02] MEDS: METOPROLOL SUCC 24HR ER 25 MG TAB.ER.24H. PO SCH (08:05)
[2018-10-02] MEDS: metFORMIN 500 MG TABLET PO SCH ×2 (08:05→17:24)
[2018-10-02] MEDS: DIVALPROEX 125 MG CAP.SPRINK PO SCH ×2 (08:05→20:04)
[2018-10-02] MEDS: ASPIRIN 81 MG TAB.CHEW PO SCH (08:06)
[2018-10-02] MEDS: ACETAMINOPHEN 325 MG TABLET PO SCH ×3 (08:06→20:03)
[2018-10-02] MEDS: levoFLOXacin 500 MG TABLET PO SCH (08:06)
[2018-10-02] MEDS: CHOLECALCIFEROL (VITAMIN D3) 1,000 UNIT TABLET PO SCH (08:06)
[2018-10-02] MEDS: SERTRALINE 25 MG TABLET. PO SCH (08:07)
[2018-10-02] MEDS: QUEtiapine 100 MG TABLET. PO SCH ×3 (08:07→20:04)
[2018-10-02] MEDS: DOCUSATE SODIUM 100 MG CAPSULE PO SCH ×2 (08:07→20:03)
[2018-10-02] MEDS: POLYETHYLENE GLYCOL 3350 17 GM PACKET. PO SCH (08:07)
[2018-10-02] MEDS: DEXTROMETHORPHAN/QUINIDINE 20/10MG CAPSULE. PO SCH ×2 (08:10→20:05)
[2018-10-02] MEDS ORDERED: OLANZapine 5 MG TABLET PO SCH (09:00)
[2018-10-02] MEDS: LORazepam 0.5 MG TABLET PO PRN (13:41)
[2018-10-02 16:30] VITALS: BP 102/69
--- NOTE | 2018-10-02 19:21 | PN ---
DATE: 10/02/2018 PSYCHIATRIC PROGRESS NOTE This note covers elements not covered in my template note. SUBJECTIVE: The patient slept 8-1/2 hours previous night. I met with him in the morning, but he has been less agitated, pain is better, more cooperative. REVIEW OF SYSTEMS: Ambulation impaired, in wheelchair. No CV, , pulmonary, eye, ENT system symptoms on review. Reliability varies. MENTAL STATUS EXAM: Oriented to himself and situation. Speech is coherent, has some latency, low in volume. Abstraction fair, computation impaired, language function intact, attention span short. Mood and affect somewhat withdrawn. LABORATORY DATA: Reviewed. IMPRESSION: Unchanged from initial note. Schizoaffective disorder, bipolar type, mild cognitive impairment versus major neurocognitive disorder, Alzheimer, vascular with delusion, depression. PLAN: No change from initial note. Valproic acid level is therapeutic at 51. MAN Samina GOMEZ MD DR: KSENIA/rocky JOB#: [id number] / [id number]
[2018-10-02] MEDS: FAMOTIDINE 20 MG TABLET PO SCH (20:03)
[2018-10-02] MEDS: traZODone 50 MG TABLET. PO SCH (20:03)
[2018-10-02] MEDS: DONEPEZIL HCL 10 MG TABLET PO SCH (20:03)
[2018-10-02] MEDS: SIMVASTATIN 10 MG TABLET PO SCH (20:03)
[2018-10-02] MEDS: OLANZapine 5 MG TABLET PO SCH (20:05)
[2018-10-03] MEDS: LEVOTHYROXINE 50 MCG TABLET PO SCH (04:46)
[2018-10-03 07:00] VITALS: BP 105/55
[2018-10-03] MEDS: METOPROLOL SUCC 24HR ER 25 MG TAB.ER.24H. PO SCH (09:00)
[2018-10-03] MEDS: metFORMIN 500 MG TABLET PO SCH ×2 (09:38→17:42)
[2018-10-03] MEDS: ASPIRIN 81 MG TAB.CHEW PO SCH (09:39)
[2018-10-03] MEDS: DIVALPROEX 125 MG CAP.SPRINK PO SCH ×2 (09:39→19:44)
[2018-10-03] MEDS: DOCUSATE SODIUM 100 MG CAPSULE PO SCH ×2 (09:39→19:42)
[2018-10-03] MEDS: POLYETHYLENE GLYCOL 3350 17 GM PACKET. PO SCH (09:40)
[2018-10-03] MEDS: levoFLOXacin 500 MG TABLET PO SCH (09:40)
[2018-10-03] MEDS: QUEtiapine 100 MG TABLET. PO SCH ×3 (09:41→19:43)
[2018-10-03] MEDS: CHOLECALCIFEROL (VITAMIN D3) 1,000 UNIT TABLET PO SCH (09:42)
[2018-10-03] MEDS: ACETAMINOPHEN 325 MG TABLET PO SCH ×3 (09:42→19:42)
[2018-10-03] MEDS: SERTRALINE 25 MG TABLET. PO SCH (09:43)
[2018-10-03] MEDS: DEXTROMETHORPHAN/QUINIDINE 20/10MG CAPSULE. PO SCH ×2 (09:49→19:48)
[2018-10-03 15:59] VITALS: BP 139/72
--- NOTE | 2018-10-03 18:33 | PN ---
DATE: 10/01/2018 This late entry of 10/01/2018 covers elements not covered in my initial note. SUBJECTIVE: I met with the patient in the evening of 10/01/2018. Per nursing report, the patient slept 8-1/2 hours previous night. He has been quite disorganized, somewhat more confused than previously, showing me his inability to transfer by himself. UA is unremarkable. Chest x-ray shows some atelectasis. He was started on Levaquin for this per Dr. Brock. REVIEW OF SYSTEMS: Impaired ambulation, in wheelchair, some tiredness. No CV, , pulmonary, eye, ENT system symptoms on review. MENTAL STATUS EXAM: Oriented to himself and situation. Speech has some latency, often responses monosyllabic, coherent. Abstraction fair, computation is impaired, language function intact, attention span short. Mood and affect is somewhat withdrawn. LABORATORY DATA: Reviewed. IMPRESSION: Schizoaffective disorder, bipolar type, mixed with psychotic features; anxiety disorder, unspecified; mild cognitive impairment versus major neurocognitive disorder; Alzheimer; vascular ____; depression; atelectasis on chest x-ray. PLAN: Continue his current psychotropics. The patient is on 2 atypical antipsychotics, Zyprexa 20 mg daily, Seroquel 100 mg daily, 200 mg at 15:00 hours, 300 mg at bedtime. We will try and simplify to change him to one atypical Seroquel at the end of it. We will reduce the Zyprexa from 20 mg daily down to 17.5 mg at bedtime for 3 days, then 15 mg at bedtime, thereafter with further reduction of 2.5 mg a day every 14 days post-discharge, if he clinically seems to tolerate it. He is somewhat obese and this would be an added benefit to eliminate the Zyprexa so long as the Seroquel and the rest of his psychotropics including Depakote to keep his mood stable. MAN Samina GOMEZ MD DR: KSENIA/rocky JOB#: [id number] / [id number]
[2018-10-03] MEDS: FAMOTIDINE 20 MG TABLET PO SCH (19:42)
[2018-10-03] MEDS: traZODone 50 MG TABLET. PO SCH (19:42)
[2018-10-03] MEDS: SIMVASTATIN 10 MG TABLET PO SCH (19:43)
[2018-10-03] MEDS: DONEPEZIL HCL 10 MG TABLET PO SCH (19:43)
[2018-10-03] MEDS: OLANZapine 5 MG TABLET PO SCH (19:44)
--- NOTE | 2018-10-03 21:44 | PN ---
DATE: 10/03/2018 FINAL DIAGNOSES: AXIS I: 1. Schizoaffective disorder, bipolar type, mixed with psychotic features. 2. Major neurocognitive disorder, possibly Alzheimer's, vascular with delusions, depression and behavioral disturbances. 3. Anxiety disorder, unspecified. 4. Impulse control disorder, unspecified. AXIS II: None. AXIS III: Traumatic subdural hematoma, diabetes mellitus type 2, hypothyroidism, hyperlipidemia, hypertension, chronic obstructive pulmonary disease, gastroesophageal reflux disease, and peptic ulcer disease. REASON FOR ADMISSION: This is 73-year-old male, a resident at [place], [place], was [facility] because of constant yelling, very disruptive to the unit, belligerent, verbally abusive towards staff and also throwing staff including pillows. The patient also very delusional, paranoid and significant agitation. HISTORY OF PRESENT ILLNESS: The patient has prior diagnosis of schizoaffective disorder, bipolar type with worsening cognition and major neurocognitive disorder. The patient's behavior has gotten worse in the past few weeks prior to admission, very disruptive, unmanageable at the facility. The patient also had a prior psychiatric hospitalization at [facility] in [facility] in June 2018. The patient also not eating well, not sleeping and significant mood swings. The patient apparently showed poor response to medications. HOSPITAL COURSE: The patient had a physical exam, routine lab work including CBC, chem profile, urinalysis. The patient's glucose level fluctuated. The patient's total 3 was slightly decreased 69, hemoglobin A1c was 6.3. Also, abnormal lipid profile. MEDICATIONS: The patient's medication during his stay here was olanzapine 2.5 mg at night and was titrated from higer dose and discontinued at the time of discharge.. The patient was also on Zoloft 125 mg daily, trazodone 50 mg at night, trazodone 50 mg at bedtime p.r.n. The patient was also Seroquel 200 mg at night, Depakote 750 mg daily, and also Seroquel 300 mg at night, and Aricept 10 mg at night. The patient is not sleeping, not eating since admission, hyperactive, restless. The patient's medication changed accordingly. The patient's behavior improved. The patient did not have any other major side effects. The patient's olanzapine titrated to the level that is no longer having any major side effects his current dose. The patient was on tapering dose of Zyprexa and the patient's Zyprexa but to be discontinued completely. The patient will continue on his Seroquel 100 mg daily and 200 mg daily. The patient is also on Zoloft 125 mg daily, trazodone 50 mg at night. AFTERCARE PLAN: The patient at the time of discharge was medically stable and the patient currently on Seroquel and is olanzapine will be discontinued. The patient will continue on other medications including Aricept, Depakote and Zoloft. The patient was medically stable. The patient currently not presenting with any suicidal, homicidal thoughts. At the recommendation for the [facility], he is to only continue on his Seroquel and discontinue the olanzapine completely. SHELLEY GUIDRY MD DR: Sonam JOB#: [id number] / [id number] ROBBIN
--- NOTE | 2018-10-03 23:39 | PDOC ---
Exam Note: gO Note: Late entry for DOS 10/02/2018. Please also refer to the separate dictated note~for this date of service dictated separately.~Patient seen individually. Discussed the patient with Nursing staff reviewed the chart.~Reviewed interim history and current functioning. Reviewed vital signs,~Labs/ Radiology~and current medications noted below. Continue current treatment with the changes noted in the dictated addendum note Assessment: Vital Signs: VS - Last 72 Hours, by Label Date Time Temp Pulse Resp B/P (MAP) Pulse Ox O2 Delivery O2 Flow Rate FiO2 10/03/18 15:59 98.4 78 19 139/72 (94) 93 10/03/18 09:00 90 105/55 10/03/18 07:00 97.9 90 20 105/55 (72) 96 10/02/18 16:30 97.5 82 20 102/69 (80) 94 10/02/18 08:05 65 123/72 10/02/18 05:52 98.2 65 17 123/72 (89) 95 10/01/18 16:41 98.2 62 16 100/72 (81) 92 10/01/18 07:57 89 144/81 10/01/18 06:11 98.2 89 20 144/81 (102) 94 Vital Signs Date Time Temp Pulse Resp B/P (MAP) Pulse Ox O2 Delivery O2 Flow Rate FiO2 10/03/18 15:59 98.4 78 19 139/72 (94) 93 09/30/18 15:43 Room Air I&O Intake and Output 10/03/18 06:59 Intake Total 1080 ml Balance 1080 ml Intake Oral 1080 ml Labs: Laboratory Tests Test 10/03/18 07:08 Glucose (Fingerstick) 91 mg/dL (70-99) Current Medications: Meds: Current Medications Acetaminophen (Tylenol) 650 mg PRN Q6HRS PRN PO PAIN / TEMP Last administered on 09/25/18at 04:12; Start 09/13/18 at 18:45 Multi-Ingredient Ointment (Analgesic [place]) 1 johnny PRN QID PRN TP MUSCLE PAIN; Start 09/13/18 at 18:45 Al Hydroxide/Mg Hydroxide (Mylanta Plus Xs) 15 ml PRN AFTMEALHC PRN PO DYSPEPSIA Last administered on 09/24/18at 14:45; Start 09/13/18 at 18:45 Magnesium Hydroxide (Milk Of Magnesia) 2,400 mg PRN QHS PRN PO CONSTIPATION; Start 09/13/18 at 18:45 Acetaminophen (Tylenol) 325 mg TID PO Last administered on 10/03/18 19:42; Start 09/14/18 at 09:00 Vitamin D (Vitamin D3) 4,000 unit DAILY PO Last administered on 10/03/18 09:42; Start 09/14/18 at 09:00 Dextromethorphan/ Quinidine (Nuedexta 20-10 Mg Capsule) 1 cap BID PO Last administered on 10/03/18 19:48; Start 09/13/18 at 22:00 Albuterol/ Ipratropium (Duoneb) 3 ml PRN Q6HRS PRN NEB COUGH; Start 09/13/18 at 21:15 Metoprolol Succinate (Toprol Xl) 25 mg DAILY PO Last administered on 10/03/18 09:00; Start 09/14/18 at 09:00 Simvastatin (Zocor) 10 mg HS PO Last administered on 10/03/18 19:43; Start 09/13/18 at 22:00 Aspirin (Children'S Aspirin) 81 mg DAILY PO Last administered on 10/03/18 09:39; Start 09/14/18 at 08:00 Divalproex Sodium (Depakote Sprinkles) 1,000 mg HS PO Last administered on 10/03/18 19:44; Start 09/13/18 at 22:00 Divalproex Sodium (Depakote Sprinkles) 750 mg DAILY PO Last administered on 10/03/18 09:39; Start 09/14/18 at 09:00 Docusate Sodium (Colace) 100 mg BID PO Last administered on 10/03/18 19:42; Start 09/13/18 at 22:00 Donepezil HCl (Aricept) 10 mg HS PO Last administered on 10/03/18 19:43; Start 09/13/18 at 22:00 Famotidine (Pepcid) 20 mg HS PO Last administered on 10/03/18 19:42; Start 09/13/18 at 22:00 Levothyroxine Sodium (Synthroid) 50 mcg DAILY06 PO Last administered on 10/03/18 04:46; Start 09/14/18 at 06:00 Lorazepam (Ativan) 0.5 mg PRN TID PRN PO ANXIETY / AGITATION Last administered on 10/02/18 13:41; Start 09/13/18 at 21:30 Non-Formulary Medication (Menthol (Biofreeze)) 118 ml PRN Q24HRS PRN TP PAIN; Start 09/13/18 at 21:15; Status UNV Metformin HCl (Glucophage) 500 mg BIDWMEALS PO Last administered on 10/03/18 17:42; Start 09/14/18 at 08:00 Olanzapine (ZyPREXA) 20 mg DAILY PO Last administered on 10/01/18 07:58; Start 09/14/18 at 09:00; Stop 10/01/18 at 18:14; Status DC Quetiapine Fumarate (SEROquel) 200 mg DAILY PO Last administered on 09/16/18 09:27; Start 09/14/18 at 09:00; Stop 09/16/18 at 11:17; Status DC Quetiapine Fumarate (SEROquel) 300 mg DAILY@1500 PO Last administered on 09/15/18 15:06; Start 09/14/18 at 15:00; Stop 09/16/18 at 11:17; Status DC Quetiapine Fumarate (SEROquel) 300 mg HS PO Last administered on 10/03/18 19:43; Start 09/13/18 at 22:30 Quetiapine Fumarate (SEROquel) 100 mg DAILY PO Last administered on 10/03/18 09:41; Start 09/17/18 at 09:00 Quetiapine Fumarate (SEROquel) 200 mg DAILY@1500 PO Last administered on 10/03/18 14:45; Start 09/16/18 at 15:00 Sertraline HCl (Zoloft) 50 mg DAILY PO Last administered on 09/20/18 08:02; Start 09/17/18 at 09:00; Stop 09/20/18 at 19:36; Status DC Hydroxyzine HCl (Atarax) 25 mg PRN Q2HR PRN PO ANXIETY / AGITATION Last administered on 09/28/18 13:00; Start 09/18/18 at 22:30 Polyethylene Glycol (miraLAX) 17 gm DAILY PO Last administered on 10/03/18at 09:40; Start 09/21/18 at 09:00 Sertraline HCl (Zoloft) 75 mg DAILY PO Last administered on 09/24/18at 08:07; Start 09/21/18 at 09:00; Stop 09/24/18 at 18:22; Status DC Trazodone HCl (Desyrel) 50 mg QHS PO Last administered on 10/03/18at 19:42; Start 09/23/18 at 21:00 Trazodone HCl (Desyrel) 50 mg PRN QHS PRN PO INSOMNIA; Start 09/23/18 at 11:30 Sertraline HCl (Zoloft) 100 mg DAILY PO Last administered on 09/29/18at 07:43; Start 09/25/18 at 09:00; Stop 09/29/18 at 21:00; Status DC Sertraline HCl (Zoloft) 125 mg DAILY PO Last administered on 10/03/18at 09:43; Start 09/30/18 at 09:00 Levofloxacin (Levaquin) 500 mg DAILY PO Last administered on 10/03/18at 09:40; Start 10/01/18 at 17:00; Stop 10/10/18 at 23:50 Olanzapine (ZyPREXA) 17.5 mg DAILY PO ; Start 10/02/18 at 09:00; Stop 10/02/18 at 09:00; Status DC Olanzapine (ZyPREXA) 15 mg DAILY PO ; Start 10/05/18 at 09:00; Stop 10/05/18 at 09:00; Status DC Olanzapine (ZyPREXA) 12.5 mg DAILY PO ; Start 10/19/18 at 09:00; Stop 10/19/18 at 09:00; Status DC Olanzapine (ZyPREXA) 10 mg DAILY PO ; Start 11/02/18 at 09:00; Stop 11/02/18 at 09:00; Status DC Olanzapine (ZyPREXA) 7.5 mg DAILY PO ; Start 11/16/18 at 09:00; Stop 11/16/18 at 09:00; Status DC Olanzapine (ZyPREXA) 5 mg DAILY PO ; Start 11/30/18 at 09:00; Stop 11/30/18 at 09:00; Status DC Olanzapine (ZyPREXA) 2.5 mg DAILY PO ; Start 12/14/18 at 09:00; Stop 12/14/18 at 09:00; Status DC Olanzapine (ZyPREXA) 17.5 mg QHS PO Last administered on 10/03/18at 19:44; Start 10/02/18 at 21:00; Stop 10/04/18 at 23:00 Olanzapine (ZyPREXA) 2.5 mg HS PO ; Start 12/14/18 at 21:00; Stop 12/27/18 at 23:50 Olanzapine (ZyPREXA) 15 mg QHS PO ; Start 10/05/18 at 21:00; Stop 10/18/18 at 23:50 Olanzapine (ZyPREXA) 12.5 mg QHS PO ; Start 10/19/18 at 21:00; Stop 11/01/18 at 23:50 Olanzapine (ZyPREXA) 10 mg QHS PO ; Start 11/02/18 at 21:00; Stop 11/15/18 at 23:50 Olanzapine (ZyPREXA) 7.5 mg QHS PO ; Start 11/16/18 at 21:00; Stop 11/29/18 at 23:50 Olanzapine (ZyPREXA) 5 mg QHS PO ; Start 11/30/18 at 21:00; Stop 12/13/18 at 23:50 Active Scripts Active Reported Seroquel (Quetiapine Fumarate) 300 Mg Tablet 300 Mg PO HS Seroquel (Quetiapine Fumarate) 300 Mg Tablet 300 Mg PO DAILY@1500 Seroquel (Quetiapine Fumarate) 200 Mg Tablet 200 Mg PO DAILY Vitamin D3 (Cholecalciferol (Vitamin D3)) 1,000 Unit Tablet 4,000 Unit PO DAILY Simvastatin 10 Mg Tablet 10 Mg PO HS Olanzapine 20 Mg Tablet 20 Mg PO DAILY Nuedexta 20-10 Mg Capsule (Dextromethorphan Hbr/Quinidine) 1 Each Capsule 1 Each PO BID Tylenol (Acetaminophen) 325 Mg Tablet 325 Mg PO TID Metoprolol Succinate ( Xl ) (Metoprolol Succinate) 25 Mg Tab.er.24h 25 Mg PO D AILY Metformin Hcl 500 Mg Tablet 500 Mg PO BIDWMEALS Lorazepam 0.5 Mg Tablet 0.5 Mg PO PRN TID PRN Levothyroxine Sodium 50 Mcg Tablet 50 Mcg PO DAILYAC Duoneb 0.5-3(2.5) Mg/3 Ml (Albuterol/Ipratropium) 3 Ml Ampul.neb 3 Ml NEB PRN Q6HRS PRN Famotidine 20 Mg Tablet 20 Mg PO HS Donepezil Hcl 10 Mg Tablet 10 Mg PO HS Docusate Sodium 100 Mg Capsule 100 Mg PO BID Depakote Sprinkle (Divalproex Sodium) 125 Mg Cap.sprink 750 Mg PO DAILY Depakote Sprinkle (Divalproex Sodium) 125 Mg Cap.sprink 1,000 Mg PO HS Biofreeze (Menthol) 118 Ml Gel..ml. 118 Ml TP PRN Q24HRS PRN Aspirin 81 Mg Tab.chew 81 Mg PO DAILY I have reviewed the current psychotropics carefully including drug interactions. Risk benefit ratio favors no change other than as noted in my dictated progress note. Diagnosis: Problems: (1) Anxiety disorder (2) Dementia in Alzheimer's disease with delusions (3) Dementia in Alzheimer's disease with depression (4) Dementia, vascular, with delusions (5) Dementia, vascular, with depression (6) Impulse control disorder KAMILA GOMEZ MD October 03, 2018 23:39
[2018-10-04] MEDS ORDERED: ACET325T9 PO (00:44)
[2018-10-04] MEDS ORDERED: MAG355OR17 PO (00:44)
[2018-10-04] MEDS ORDERED: METH29OI TP (00:45)
[2018-10-04] MEDS ORDERED: MAGN2400 PO (00:45)
[2018-10-04] MEDS ORDERED: SERT100T PO (00:46)
[2018-10-04] MEDS ORDERED: POLY2500 PO (00:46)
[2018-10-04] MEDS ORDERED: HYDR25TA PO (00:47)
[2018-10-04] MEDS ORDERED: LEVO500T59 PO (00:47)
[2018-10-04] MEDS ORDERED: TRAZ-120 PO ×2 (00:49)
[2018-10-04] MEDS: LEVOTHYROXINE 50 MCG TABLET PO SCH (05:00)
[2018-10-04 05:48] VITALS: BP 139/75
[2018-10-04] MEDS: metFORMIN 500 MG TABLET PO SCH (07:33)
[2018-10-04] MEDS: CHOLECALCIFEROL (VITAMIN D3) 1,000 UNIT TABLET PO SCH (07:33)
[2018-10-04] MEDS: DOCUSATE SODIUM 100 MG CAPSULE PO SCH (07:33)
[2018-10-04] MEDS: POLYETHYLENE GLYCOL 3350 17 GM PACKET. PO SCH (07:34)
[2018-10-04] MEDS: ACETAMINOPHEN 325 MG TABLET PO SCH (07:34)
[2018-10-04] MEDS: DIVALPROEX 125 MG CAP.SPRINK PO SCH (07:34)
[2018-10-04] MEDS: levoFLOXacin 500 MG TABLET PO SCH (07:34)
[2018-10-04] MEDS: SERTRALINE 25 MG TABLET. PO SCH (07:34)
[2018-10-04] MEDS: ASPIRIN 81 MG TAB.CHEW PO SCH (07:34)
[2018-10-04] MEDS: QUEtiapine 100 MG TABLET. PO SCH (07:34)
[2018-10-04] MEDS: DEXTROMETHORPHAN/QUINIDINE 20/10MG CAPSULE. PO SCH (07:36)
[2018-10-04 07:37] VITALS: BP 139/75
[2018-10-04] MEDS: METOPROLOL SUCC 24HR ER 25 MG TAB.ER.24H. PO SCH (07:37)
[2018-10-04] MEDS: LORazepam 0.5 MG TABLET PO PRN (09:23)
[2018-10-05] MEDS ORDERED: OLANZapine 5 MG TABLET PO SCH ×2 (09:00→21:00)
[2018-10-19] MEDS ORDERED: OLANZapine 5 MG TABLET PO SCH ×2 (09:00→21:00)
[2018-11-02] MEDS ORDERED: OLANZapine 5 MG TABLET PO SCH ×2 (09:00→21:00)
[2018-11-16] MEDS ORDERED: OLANZapine 5 MG TABLET PO SCH ×2 (09:00→21:00)
[2018-11-30] MEDS ORDERED: OLANZapine 5 MG TABLET PO SCH ×2 (09:00→21:00)
[2018-12-14] MEDS ORDERED: OLANZapine 2.5 MG TABLET PO SCH ×2 (09:00→21:00)
== END 2018-10-04 11:45 | DRG 885 ==
LOC: ER 14:27 → GEROPSY 17:35
PROVIDERS: ADMIT Psychiatry & Neurology Psychiatry; ATTEND Psychiatry & Neurology Psychiatry
DX: F25.0 Schizoaffective disorder, bipolar type (principal); J98.11 Atelectasis; F41.9 Anxiety disorder, unspecified; E03.9 Hypothyroidism, unspecified; E11.9 Type 2 diabetes mellitus without complications; D50.9 Iron deficiency anemia, unspecified; E55.9 Vitamin D deficiency, unspecified; E78.00 Pure hypercholesterolemia, unspecified; E78.5 Hyperlipidemia, unspecified; F01.50 Vascular dementia, unspecified severity, without behavioral disturbance, psychotic disturbance, mood disturbance, and anxiety; F02.80 Dementia in other diseases classified elsewhere, unspecified severity, without behavioral disturbance, psychotic disturbance, mood disturbance, and anxiety; G30.9 Alzheimer's disease, unspecified; I10 Essential (primary) hypertension; J44.9 Chronic obstructive pulmonary disease, unspecified; K21.9 Gastro-esophageal reflux disease without esophagitis; Z02.89 Encounter for other administrative examinations; Z79.899 Other long term (current) drug therapy; Z87.01 Personal history of pneumonia (recurrent); Z87.11 Personal history of peptic ulcer disease
CPT/HCPCS: 36415; 70450; 71045; 80053; 80061; 80164; 81001; 82306; 82947; 83036; 83540; 83550; 83735; 84436; 84439; 84443; 84480; 85007; 85025; 86592; 93005; P9612; 99285-25